=== PATIENT | female | born 1935 | race Caucasian/White ===

== ENCOUNTER 2017-10-01 18:18 | Emergency (ER) | payer OTHER, SELFPAY ==
[2017-10-01] VITALS (7 sets, daily range): BP systolic 152–205; BP diastolic 78–105; PULSE 99–119; RESP 21–25; TEMP 36.8; O2SAT 97–100
--- NOTE | 2017-10-01 18:47 | PC.NURSE ---
pt reports, hx of stroke last february 2017 expressive aphasia, intermittent for couple of days, along with dizziness , and feeling nervous. denies headache, denies chest pain, with shortness of breath, denies vomiting or diarrhea. neuro fast exam negative.
--- NOTE | 2017-10-01 18:52 | DI.RAD.S_ITS ---
PROCEDURE: XR CHEST 1V INDICATIONS: dizziness with shortness of breath TECHNIQUE: One view of the chest was acquired. COMPARISON: [facility], , CHEST 2 VIEW, 03/10/2014, 12:59. [facility], , CHEST 1 VIEW, 08/24/2015, 13:37. FINDINGS: Surgical changes and devices: None. Lungs and pleura: Diffuse interstitial prominence appears unchanged from the last exam. No pleural effusions or pneumothorax. Mediastinum: Mediastinal contours appear normal. Heart size is normal. Bones and chest wall: No suspicious bony lesions. Overlying soft tissues appear unremarkable. IMPRESSION: Chronic diffuse interstitial prominence suggesting chronic interstitial lung disease. Dictated by: Mart Murphy M.D. on 10/01/2017 at 20:11 Approved by: Mart Murphy M.D. on 10/01/2017 at 20:13
[2017-10-01 19:12] LABS: Add Manual Diff / Slide Review NO; Basophils Percent Auto 0.7 % (0-2); Hematocrit 41.9 % (36-46); Hemoglobin 14.2 g/dL (12.0-16.0); Lymphocytes Percent Auto 34.7 % (25-40); Mean Corpuscular HGB Conc 33.8 % (30-36); Mean Corpuscular Volume 91.7 fL (80-100); Monocytes Percent Auto 11.7 % (3-14); Neutrophils Absolute Auto 3000 /uL (3000-5900); Neutrophils Percent Auto 51.9 % (50-75); Platelet Count 349 X10^3/uL (150-400); Red Blood Cell Count 4.57 X10^6/uL (4.0-5.2); White Blood Cell Count 5.8 X10^3/uL (4.5-11.0)
[2017-10-01 19:24] LABS: Alanine Aminotransferase 26 IU/L (9-52); Albumin 4.5 g/dL (3.5-5.0); Albumin Globulin Ratio 1.4 (1.0-2.8); Alkaline Phosphatase 92 U/L (38-126); Aspartate Aminotransferase 34 IU/L (14-36); BUN Creatinine Ratio 16.7 (6-22); Bilirubin Total 1.2 mg/dL (0.2-1.3); Blood Urea Nitrogen 10 mg/dL (7-17); Calcium 9.4 mg/dL (8.4-10.2); Carbon Dioxide 24 mmol/L (22-32); Chloride 93 mmol/L (98-107); Creatine Kinase 65 U/L (30-135); Estimated Glomerular Filt Rate > 60.0 mL/min (>60); Globulin 3.2 g/dL (1.7-4.1); Glucose 95 mg/dL (80-110); Lipase 104 U/L (23-300); Sodium 130 mmol/L (137-145); Total Protein 7.7 g/dL (6.3-8.2)
[2017-10-01 19:33] LABS: D Dimer < 200 ng/mL (<230)
[2017-10-01 19:39] LABS: HEMOLYSIS 89 (0-50); Troponin I < 0.012 ng/mL (0.01-0.034)
[2017-10-01 19:43] LABS: Potassium 4.3 mmol/L (3.4-5.1)
[2017-10-01 20:29] LABS: Thyroid Stimulating Hormone 4.46 uIU/mL (0.47-4.68)
[2017-10-01] MEDS: SODIUM CHLORIDE 0.9% 1,000 ML 1000 ML IV (21:38)
[2017-10-01 22:08] LABS: Appearance Urine UA CLEAR; Bilirubin Urine UA NEGATIVE (NEGATIVE); Color Urine UA YELLOW; Glucose Urine UA NEGATIVE (Normal); Ketones Urine UA NEGATIVE (NEGATIVE); Leukocyte Esterase Urine UA TRACE (NEGATIVE); Nitrite Urine UA Negative (Negative); Occult Blood Urine UA 1+ (Negative); Protein Urine UA NEGATIVE (Negative); Urobilinogen Urine UA 0.2 E.U./dL (0.2); pH Urine UA 7.5 (4.5-8.0)
[2017-10-01 22:19] LABS: Bacteria Urine Occasional (0-1); Culture Indicated Urine Specimen Cultured; RBC Urine 0-1/HPF (0-5/HPF); Squamous Epithelial Cell Urine 0-1 /HPF; WBC Urine 0-1/HPF (0-5/HPF)
--- NOTE | 2017-10-01 23:55 | ED.PEDSOB ---
HPI - Pediatric SOB/Dyspnea General Chief Complaint: Shortness of Breath/Dyspnea Stated Complaint: THINKS SHE IS HAVING A HEART ATTACK History of Present Illness HPI Narrative: HPI 82-year-old female with a history of CVA, HTN and HLD presents for evaluation of feeling unwell and mildly jittery of several days' duration, patient unable to further characterize her symptoms. Patient denies overt chest pain, shortness breath, fevers, chills, headache, changes in vision or hearing. On repeat evaluation several hours into the patient's emergency department course she notes that she is been somewhat stressful the last several days with very poor and minimal sleep has been drinking 2 to 3 times the normal amount of coffee (now 5 cups a day). History obtained from: patient. M/S/F/SocHx notable for: breast cancer history, depression, anxiety, back pain, CVA, HTN, HLD, constipation, insomnia; remainder reviewed with patient and in chart. ROS: Negative constitutional, eye, cardiovascular, pulmonary, GI, , MSK, skin, neurologic, psychiatric, endocrine unless noted in the HPI. Exam HR 100, BP 196/96, RR 21, T pending?F, SaO2 100 % on room air; at 6:54 PM. Gen: Pleasant, non-toxic appearing, resting comfortably. HEENT: Normocephalic, atraumatic Resp: Clear to auscultation bilaterally, normal work of breathing with no accessory muscle usage. Card: Regular rate and rhythm with no murmurs rubs or gallops. No JVD. No pedal edema bilaterally. GI: Nontender to palpation throughout all quadrants. Nondistended. : No CVA tenderness to percussion bilaterally. No suprapubic tenderness or palpable masses. MSK: No visible deformities, strength and tone within normal limits. Skin: Normal color with no visible lesions. Neuro: Gen AO x 3, no facial asymmetry, no gaze preference, no slurring of speech. Pupils equal and reactive, EOMI, no facial asymmetry, no nystagmus, phonation intact, SCM 5/5 bilaterally. Cerebellar: bilateral upper extremities without dysmetria. 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 Psych: Mood and affect appropriate. Labs / Imaging (pertinent): WBC 5.8, Hb 14.2, Na 130, K 4.3, lipase 104, TSH 4.46 troponin <0.012 d-dimer <200 CXR: No acute cardiopulmonary disease process. EKG: SR at 109 BPM, OK 140 msec, no new ST segment changes, new LBBB, or T-wave changes that would suggest acute ischemia. MDM Previous chart, nursing note, and vitals reviewed. A: 82-year-old female with a history of CVA, HTN and HLD presents for evaluation of feeling unwell and mildly jittery of several days' duration, patient unable to further characterize her symptoms. DDx: CVA, ACS/UA, UTI, pneumonia, electrolyte abnormalities,anemia, hypothyroidism, hypothermia, pericardial effusion, dissection, PE. Evaluation: patient with a unclear symptom constellation is likely due to insomnia, excessive caffeine use, and dehydration. The patient's physical exam is without evidence of neuro deficits suggestive of CVA, given a non-ischemic EKG and negative troponin's strongly doubt ACS, history and consistent with unstable angina, notifying suggestive on history of UTI, imaging without of pneumonia, CBC, BMP, WNL. Given the low pretest probability the negative d-dimer is appropriate for risk stratification/rule out with respect to PE and dissection. Physical exam and imaging are without evidence of pericardial effusion, pleural effusion. TSH WNL. Patient had hypertension on arrival which resolved the patient's baseline range (per patient and SPP of 160-170) with rest, patient with mild tachycardia which improved with hydration. As the patient has been taking excessive caffeine she was recommended to reduce her caffeine intake and follow up tomorrow with her PCP for repeat evaluation.\ Impression: malaise (please reference below for remainder of encounter information) Related Data Home Medications Medication Instructions Recorded Confirmed lovastatin 20 mg PO HS #0 04/09/16 08/21/17 Previous Rx's Medication Instructions Recorded losartan [Cozaar] 100 mg PO QDAY #180 tab 10/22/16 clopidogrel [Plavix] 75 mg PO QDAY #90 tab 11/19/16 fluoxetine 20 mg PO QDAY #90 cap 08/05/17 hydroxyzine pamoate 50 mg capsule 50 mg PO HSP PRN #30 cap 08/21/17 Allergies Allergy/AdvReac Type Severity Reaction Status Date / Time No Known Allergies Allergy Uncoded 08/21/17 13:46 PFSH Medical History History of breast cancer (Chronic) Hyperlipidemia, unspecified (Chronic) Essential hypertension (Chronic) Depression, major (Chronic) Anxiety (Chronic) Back pain (Chronic) CVA (cerebral vascular accident) (Chronic) History of colon polyps (Chronic) Cerebrovascular accident (CVA) due to stenosis of right middle cerebral artery (04/09/16) Surgical History History of bilateral salpingo-oophorectomy (BSO) Status post surgery (01/09/09) Social History Smoking Status: Never smoker Course Orders Ordered: ED Orders 10/01/17 18:30 Complete Blood Count AUTO DIFF Stat Comprehensive Metabolic Panel Stat Lipase Stat Troponin & CK Cardiac Panel Stat 10/01/17 18:52 XR chest 1V Stat 10/01/17 21:55 Urinalysis and Microscopic Stat Urine Culture Stat Discontinued Medications Sodium Chloride (Normal Saline 0.9%) 1,000 mls @ 1,000 mls/hr IV BOLUS ONE Stop: 10/01/17 22:25 Last Infusion: 10/01/17 23:07 Dose: 1,000 mls/hr Admin: 10/01/17 21:38 Dose: 1,000 mls/hr Vital Signs - 8 hr 10/01/17 18:29 10/01/17 18:54 10/01/17 19:37 Temperature 98.3 F Pulse Rate 119 H 100 H Respiratory Rate 22 21 Blood Pressure 205/105 H Blood Pressure [Left Arm] 196/96 H Pulse Oximetry 100 100 10/01/17 19:40 10/01/17 20:37 10/01/17 22:05 Temperature Pulse Rate 102 H 114 H 99 H Respiratory Rate 25 H 21 22 Blood Pressure Blood Pressure [Left Arm] 158/84 H 152/78 H 182/94 H Pulse Oximetry 98 97 97 10/01/17 23:22 Temperature Pulse Rate 100 H Respiratory Rate 21 Blood Pressure Blood Pressure [Left Arm] 158/88 H Pulse Oximetry 99 Medical Decision Making Lab Data Result diagrams: 10/01/17 18:30 10/01/17 18:30 Lab Results 10/01/17 10/01/17 10/01/17 Range/Units 14:20 14:20 14:20 WBC (4.5-11.0) X10^3/uL RBC (4.0-5.2) X10^6/uL Hgb (12.0-16.0) g/dL Hct (36-46) % MCV (80-100) fL MCH (26-34) PG MCHC (30-36) % RDW (11.6-14.8) % Plt Count (150-400) X10^3/uL Neut % (Auto) (50-75) % Lymph % (Auto) (25-40) % [place] % (Auto) (3-14) % Eos % (Auto) (2-4) % Baso % (Auto) (0-2) % Neut # (Auto) (9525-2842) /uL D-Dimer < 200 (<230) ng/mL Sodium Cancelled Potassium Cancelled Chloride Cancelled Carbon Dioxide Cancelled BUN Cancelled Creatinine Cancelled Estimated GFR Cancelled BUN/Creatinine Ratio Cancelled Glucose Cancelled Calcium Cancelled Total Bilirubin Cancelled AST Cancelled ALT Cancelled Alkaline Phosphatase Cancelled Total Creatine Kinase (30-135) U/L Troponin I Cancelled Total Protein Cancelled Albumin Cancelled Globulin Cancelled Albumin/Globulin Ratio Cancelled Lipase (23-300) U/L TSH (0.47-4.68) uIU/mL Urine Color Urine Appearance Urine pH (4.5-8.0) Ur Specific [place] (1.000-1.035) Urine Protein (Negative) Urine Glucose (UA) (Normal) g/dL Urine Ketones (NEGATIVE) Urine Occult Blood (Negative) Urine Nitrate (Negative) Urine Bilirubin (NEGATIVE) Urine Urobilinogen (0.2) E.U./dL Ur Leukocyte Esterase (NEGATIVE) Urine RBC (0-5/HPF) Urine WBC (0-5/HPF) Ur Squamous Epith Cells Urine Bacteria (None) Ur Culture Indicated? Micro UA Comment 10/01/17 10/01/17 10/01/17 Range/Units 14:20 18:30 18:30 WBC 5.8 (4.5-11.0) X10^3/uL RBC 4.57 (4.0-5.2) X10^6/uL Hgb 14.2 (12.0-16.0) g/dL Hct 41.9 (36-46) % MCV 91.7 (80-100) fL MCH 31.0 (26-34) PG MCHC 33.8 (30-36) % RDW 13.0 (11.6-14.8) % Plt Count 349 (150-400) X10^3/uL Neut % (Auto) 51.9 (50-75) % Lymph % (Auto) 34.7 (25-40) % [place] % (Auto) 11.7 (3-14) % Eos % (Auto) 1.0 L (2-4) % Baso % (Auto) 0.7 (0-2) % Neut # (Auto) 3000 (9142-8895) /uL D-Dimer (<230) ng/mL Sodium 130 L Potassium 4.3 Chloride 93 L Carbon Dioxide 24 BUN 10 Creatinine 0.60 Estimated GFR > 60.0 BUN/Creatinine Ratio 16.7 Glucose 95 Calcium 9.4 Total Bilirubin 1.2 AST 34 ALT 26 Alkaline Phosphatase 92 Total Creatine Kinase 65 (30-135) U/L Troponin I < 0.012 Total Protein 7.7 Albumin 4.5 Globulin 3.2 Albumin/Globulin Ratio 1.4 Lipase 104 (23-300) U/L TSH 4.46 (0.47-4.68) uIU/mL Urine Color Urine Appearance Urine pH (4.5-8.0) Ur Specific [place] (1.000-1.035) Urine Protein (Negative) Urine Glucose (UA) (Normal) g/dL Urine Ketones (NEGATIVE) Urine Occult Blood (Negative) Urine Nitrate (Negative) Urine Bilirubin (NEGATIVE) Urine Urobilinogen (0.2) E.U./dL Ur Leukocyte Esterase (NEGATIVE) Urine RBC (0-5/HPF) Urine WBC (0-5/HPF) Ur Squamous Epith Cells Urine Bacteria (None) Ur Culture Indicated? Micro UA Comment 07/04/18 Range/Units 21:55 WBC (4.5-11.0) X10^3/uL RBC (4.0-5.2) X10^6/uL Hgb (12.0-16.0) g/dL Hct (36-46) % MCV (80-100) fL MCH (26-34) PG MCHC (30-36) % RDW (11.6-14.8) % Plt Count (150-400) X10^3/uL Neut % (Auto) (50-75) % Lymph % (Auto) (25-40) % [place] % (Auto) (3-14) % Eos % (Auto) (2-4) % Baso % (Auto) (0-2) % Neut # (Auto) (6628-3568) /uL D-Dimer (<230) ng/mL Sodium Potassium Chloride Carbon Dioxide BUN Creatinine Estimated GFR BUN/Creatinine Ratio Glucose Calcium Total Bilirubin AST ALT Alkaline Phosphatase Total Creatine Kinase (30-135) U/L Troponin I Total Protein Albumin Globulin Albumin/Globulin Ratio Lipase (23-300) U/L TSH (0.47-4.68) uIU/mL Urine Color Yellow Urine Appearance Clear Urine pH 7.5 (4.5-8.0) Ur Specific [place] 1.010 (1.000-1.035) Urine Protein Negative (Negative) Urine Glucose (UA) Negative (Normal) g/dL Urine Ketones Negative (NEGATIVE) Urine Occult Blood 1+ H (Negative) Urine Nitrate Negative (Negative) Urine Bilirubin Negative (NEGATIVE) Urine Urobilinogen 0.2 (0.2) E.U./dL Ur Leukocyte Esterase Trace H (NEGATIVE) Urine RBC 0-1/hpf (0-5/HPF) Urine WBC 0-1/hpf (0-5/HPF) Ur Squamous Epith Cells 0-1 /hpf Urine Bacteria Occasional (0-1) (None) Ur Culture Indicated? Specimen cultured Micro UA Comment Not Reportable Discharge Plan Departure Prescriptions: No Action lovastatin 20 MG tablet 20 mg PO HS Qty: 0 RF: 0 losartan [Cozaar] 50 MG tablet 100 mg PO QDAY Qty: 180 RF: 3 clopidogrel [Plavix] 75 MG tablet 75 mg PO QDAY Qty: 90 RF: 3 fluoxetine 20 mg capsule 20 mg PO QDAY Qty: 90 RF: 1 hydroxyzine pamoate [Vistaril] 50 mg capsule 50 mg PO HSP PRN (Reason: sleep) Qty: 30 RF: 0
--- NOTE | 2017-10-02 00:06 | PC.NURSE ---
[employer] called for patient ride. eta 30 minutes
== END 2017-10-02 00:22 | disposition home or self-care (01) ==
PROVIDERS: Emergency Provider Emergency Medicine; PCP Family Medicine
DX: R53.81 Other malaise (principal)
CPT/HCPCS: 36591; 71045; 80053; 81001; 81003; 82550; 82553; 83690; 84443; 84484; 85025; 85379; 87086; 93005; 93041; 96360; 99285; 99291

== ENCOUNTER → 2017-11-26 09:42 | Outpatient (CLI) | payer OTHER, SELFPAY ==
[2017-11-26 10:03] LABS: Add Manual Diff / Slide Review NO; Basophils Percent Auto 0.8 % (0-2); Eosinophils Percent Auto 2.5 % (2-4); Hematocrit 44.6 % (36-46); Hemoglobin 14.7 g/dL (12.0-16.0); Lymphocytes Percent Auto 22.6 % (25-40); Mean Corpuscular HGB Conc 33.1 % (30-36); Mean Corpuscular Hemoglobin 30.9 PG (26-34); Mean Corpuscular Volume 93.5 fL (80-100); Monocytes Percent Auto 9.7 % (3-14); Neutrophils Absolute Auto 2600 /uL (3000-5900); Neutrophils Percent Auto 64.4 % (50-75); Platelet Count 336 X10^3/uL (150-400); Red Blood Cell Count 4.77 X10^6/uL (4.0-5.2); Red Cell Distribution Width 13.3 % (11.6-14.8)
[2017-11-26 10:13] LABS: Alanine Aminotransferase 24 IU/L (9-52); Albumin 4.5 g/dL (3.5-5.0); Albumin Globulin Ratio 1.6 (1.0-2.8); Alkaline Phosphatase 79 U/L (38-126); Aspartate Aminotransferase 29 IU/L (14-36); BUN Creatinine Ratio 13.8 (6-22); Bilirubin Total 1.4 mg/dL (0.2-1.3); Blood Urea Nitrogen 11 mg/dL (7-17); Carbon Dioxide 32 mmol/L (22-32); Chloride 100 mmol/L (98-107); Cholesterol 228 mg/dL (140-199); Estimated Glomerular Filt Rate > 60.0 mL/min (>60); Globulin 2.9 g/dL (1.7-4.1); Glucose 99 mg/dL (80-110); HDL Cholesterol 89 mg/dL (40-60); HEMOLYSIS < 15 (0-50); LDL Cholesterol Calculated 111 mg/dL (<100); Potassium 4.5 mmol/L (3.4-5.1); Sodium 140 mmol/L (137-145); Total Protein 7.4 g/dL (6.3-8.2); Triglycerides 139 mg/dL (35-150)
[2017-11-26 10:44] LABS: TSH w/ Reflex to FT4 1.41 uIU/mL (0.47-4.68)
[2017-11-26 11:43] LABS: Thyroid Stimulating Hormone 1.46 uIU/mL (0.47-4.68)
== END ==
PROVIDERS: PCP Family Medicine; Visit Provider Family Medicine
DX: E78.5 Hyperlipidemia, unspecified (principal); I10 Essential (primary) hypertension; E78.1 Pure hyperglyceridemia
CPT/HCPCS: 36415; 80053; 80061; 84443; 85025

== ENCOUNTER → 2018-03-17 10:05 | Outpatient (CLI) | payer OTHER, SELFPAY ==
--- NOTE | 2018-03-17 10:08 | DI.US.S_ITS ---
PROCEDURE: US ABDOMEN COMPLETE INDICATIONS: BLOATING TECHNIQUE: Real-time scanning was performed of the abdominal and retroperitoneal organs, with image documentation. COMPARISON: [facility], US, ABDOMEN COMPLETE, 08/05/2013, 9:10. FINDINGS: Liver: Liver is normal in size and homogeneous in echotexture. Gallbladder: No gallstones identified. Normal gallbladder wall. No pericholecystic fluid. Negative sonographic Parrish sign. Biliary ducts: Intrahepatic bile ducts are non-dilated. Extrahepatic bile duct caliber measures 7.3 mm. Normal is 6-7 mm or less in diameter, or 10 mm or less post-cholecystectomy. Pancreas: Visualized portions of the pancreas are sonographically normal. Spleen: Spleen is normal in size and homogeneous in echotexture. Kidneys: Kidneys are normal in size and echotexture. Right kidney measures 9.7 cm long; left kidney measures 10.7 cm long. No hydronephrosis or nephrolithiasis. No solid masses. Aorta: Visualized aorta is normal in caliber at less than 3 cm. Iliacs: Proximal common iliac arteries are normal in caliber at less than 2.5 cm. IVC: Intrahepatic inferior vena cava is patent. Miscellaneous: No free abdominal fluid. IMPRESSION: No source for abdominal bloating identified. Dictated by: Bautista Montoya [facility] Interpreted: Guillaume Sun MD on 03/17/2018 at 11:50 Approved by: Guillaume Sun M.D. on 03/17/2018 at 12:59
--- NOTE | 2018-03-17 10:08 | DI.US.S_ITS ---
PROCEDURE: US PELVIC COMPLETE INDICATIONS: BLOATING TECHNIQUE: Real-time scanning was performed of the pelvic organs, with image documentation. Additional endovaginal scanning was necessary due to incomplete visualization of the adnexal and endometrial structures by transabdominal scanning. COMPARISON: [facility], , PELVIC COMPLETE, 08/05/2013, 9:22. FINDINGS: Transabdominal scanning: Limited scanning through the kidneys shows no hydronephrosis. No pathologic free abdominal or pelvic fluid. Endovaginal scanning: Uterus: Uterus is normal in size at 4.7 x 2.7 x 4.2 cm. The endometrium measures 1.0 mm in combined thickness. 2 intramural fibroids present largest measuring roughly 13 mm. Several myometrial cysts present largest measuring 6 mm. Ovaries: Right ovary is not visualized and the left ovary is surgically absent. No adnexal masses seen. IMPRESSION: 1. 2 small intramural fibroids. 2. Several small myometrial cysts. Dictated by: Bautista RAPP Interpreted: Guillaume Sun MD on 03/17/2018 at 11:52 Approved by: Guillaume Sun M.D. on 03/17/2018 at 12:59
== END ==
PROVIDERS: PCP Family Medicine; Visit Provider Family Medicine
DX: R14.0 Abdominal distension (gaseous) (principal); D25.1 Intramural leiomyoma of uterus; N85.8 Other specified noninflammatory disorders of uterus
CPT/HCPCS: 76700; 76830; 76856

== ENCOUNTER → 2018-12-01 09:30 | Outpatient (CLI) | payer OTHER, SELFPAY ==
[2018-12-01 10:36] LABS: Hematocrit 43.1 % (36-46); Hemoglobin 14.4 g/dL (12.0-16.0); Mean Corpuscular HGB Conc 33.4 % (30-36); Mean Corpuscular Hemoglobin 30.3 PG (26-34); Mean Corpuscular Volume 90.8 fL (80-100); Platelet Count 400 X10^3/uL (150-400); Red Blood Cell Count 4.75 X10^6/uL (4.0-5.2); Red Cell Distribution Width 13.4 % (11.6-14.8); White Blood Cell Count 5.1 X10^3/uL (4.5-11.0)
[2018-12-01 10:46] LABS: Alanine Aminotransferase 12 IU/L (9-52); Albumin 4.4 g/dL (3.5-5.0); Albumin Globulin Ratio 1.5 (1.0-2.8); Alkaline Phosphatase 95 U/L (38-126); Aspartate Aminotransferase 23 IU/L (14-36); BUN Creatinine Ratio 17.1 (6-22); Bilirubin Total 1.1 mg/dL (0.2-1.3); Blood Urea Nitrogen 12 mg/dL (7-17); Carbon Dioxide 28 mmol/L (22-32); Chloride 98 mmol/L (98-107); Cholesterol 226 mg/dL (140-199); Estimated Glomerular Filt Rate > 60.0 mL/min (>60); Globulin 2.9 g/dL (1.7-4.1); Glucose 101 mg/dL (80-110); HDL Cholesterol 97 mg/dL (40-60); HEMOLYSIS 16 (0-50); LDL Cholesterol Calculated 102 mg/dL (<100); Potassium 4.8 mmol/L (3.4-5.1); Sodium 138 mmol/L (137-145); Total Protein 7.3 g/dL (6.3-8.2); Triglycerides 134 mg/dL (35-150)
[2018-12-01 11:25] LABS: TSH w/ Reflex to FT4 1.66 uIU/mL (0.47-4.68)
[2018-12-01 13:37] LABS: Neutrophils Absolute Manual 3417 /uL (3000-5900); Total Cells Counted 100
[2018-12-01 13:39] LABS: Anisocytosis 1+
== END ==
PROVIDERS: PCP Family Medicine; Visit Provider Family Medicine
DX: F32.9 Major depressive disorder, single episode, unspecified (principal); E78.5 Hyperlipidemia, unspecified; I63.9 Cerebral infarction, unspecified
CPT/HCPCS: 36415; 80053; 80061; 84443; 85025

== ENCOUNTER 2019-09-21 15:46 | Emergency (ER) | payer OTHER, SELFPAY ==
[2019-09-21] VITALS (9 sets, daily range): BP systolic 142–186; BP diastolic 80–104; PULSE 90–110; RESP 17–22; TEMP 37; O2SAT 97–99
--- NOTE | 2019-09-21 16:19 | DI.RAD.S_ITS ---
PROCEDURE: XR CHEST 1V INDICATIONS: flu-like symptoms TECHNIQUE: One view of the chest was acquired. COMPARISON: [facility], CR, XR CHEST 1V, 10/01/2017, 18:56. FINDINGS: Surgical changes and devices: None. Lungs and pleura: Scattered subsegmental atelectasis and/or scarring. No focal consolidation. No pleural effusions or pneumothorax. Mediastinum: Mediastinal contours appear normal. Heart size is normal. Bones and chest wall: No suspicious bony lesions. Overlying soft tissues appear unremarkable. IMPRESSION: No acute disease Dictated by: Zack Grace M.D. on 09/21/2019 at 17:19 Approved by: Zack Grace M.D. on 09/21/2019 at 17:20
[2019-09-21 16:29] LABS: Add Manual Diff / Slide Review NO; Basophils Absolute Auto 100 /uL (0-100); Basophils Percent Auto 1.1 % (0-2); Eosinophils Absolute Auto 100 /uL (0-450); Eosinophils Percent Auto 1.9 % (2-4); Hematocrit 41.7 % (36-46); Hemoglobin 14.1 g/dL (12.0-16.0); Lymphocytes Absolute Auto 1700 /uL (1100-4500); Lymphocytes Percent Auto 27.6 % (25-40); Mean Corpuscular HGB Conc 33.8 % (30-36); Mean Corpuscular Hemoglobin 31.1 PG (26-34); Mean Corpuscular Volume 91.9 fL (80-100); Monocytes Absolute Auto 700 /uL (0-900); Monocytes Percent Auto 10.8 % (3-14); Neutrophils Absolute Auto 3700 /uL (1500-7000); Neutrophils Percent Auto 58.6 % (50-75); Platelet Count 377 X10^3/uL (150-400); Red Blood Cell Count 4.54 X10^6/uL (4.0-5.2); Red Cell Distribution Width 13.7 % (11.6-14.8); White Blood Cell Count 6.2 X10^3/uL (4.5-11.0)
[2019-09-21 16:30] LABS: Lactate (Lactic Acid) 1.8 mmol/L (0.7-2.1)
[2019-09-21 17:12] LABS: D Dimer < 200 ng/mL (<230)
[2019-09-21 17:15] LABS: Creatine Kinase 48 U/L (30-135)
[2019-09-21 17:17] LABS: C-Reactive Protein Quant < 0.5 mg/dL (<1.0)
[2019-09-21 17:22] LABS: Alanine Aminotransferase 14 IU/L (<35); Albumin 4.4 g/dL (3.5-5.0); Albumin Globulin Ratio 1.5 (1.0-2.8); Alkaline Phosphatase 95 U/L (38-126); Aspartate Aminotransferase 28 IU/L (14-36); BUN Creatinine Ratio 16.5 (6-22); Bilirubin Total 0.5 mg/dL (0.2-1.3); Blood Urea Nitrogen 13 mg/dL (7-17); Calcium 9.9 mg/dL (8.4-10.2); Carbon Dioxide 22 mmol/L (22-32); Chloride 104 mmol/L (98-107); Estimated Glomerular Filt Rate > 60.0 mL/min (>60); Globulin 2.9 g/dL (1.7-4.1); Glucose 95 mg/dL (80-110); HEMOLYSIS < 15 (0-50); Sodium 136 mmol/L (137-145); Total Protein 7.3 g/dL (6.3-8.2)
[2019-09-21 17:25] LABS: NT-proBNP (BNP-Adult 18+) 196 pg/mL (<450); Troponin I < 0.012 ng/mL (0.01-0.034)
[2019-09-21 17:37] LABS: COVID19 -Nasal RAPID Negative (Negative)
[2019-09-21 17:37] LABS: Procalcitonin < 0.05 ng/mL (<0.5)
[2019-09-21 17:48] LABS: Ferritin 13 ng/mL (11-264)
[2019-09-21] MEDS: SODIUM CHLORIDE 0.9% 1,000 ML 1000 ML IV (17:50)
[2019-09-21 19:24] LABS: Creatine Kinase 44 U/L (30-135)
[2019-09-21 19:31] LABS: Appearance Urine UA CLOUDY; Bilirubin Urine UA NEGATIVE (NEGATIVE); Color Urine UA YELLOW; Glucose Urine UA NEGATIVE (Negative); Ketones Urine UA TRACE (NEGATIVE); Leukocyte Esterase Urine UA 1+ (NEGATIVE); Nitrite Urine UA NEGATIVE (Negative); Occult Blood Urine UA TRACE-INTACT (Negative); Protein Urine UA NEGATIVE (Negative); Urobilinogen Urine UA 0.2 E.U./dL (0.2); pH Urine UA 6.5 (4.5-8.0)
[2019-09-21 19:37] LABS: Troponin I < 0.012 ng/mL (0.01-0.034)
[2019-09-21 19:41] LABS: Amorphous Sediment Urine 2+; Bacteria Urine Moderate (10-30); Culture Indicated Urine Specimen Cultured; RBC Urine 1-5/HPF (0-5/HPF); Squamous Epithelial Cell Urine 1-5 /HPF (0-5/HPF); WBC Urine 5-10/HPF (0-5/HPF)
--- NOTE | 2019-09-21 21:13 | ED_ITS ---
HPI - SOB/Dyspnea <ABEBA CabanBC - Last Filed: 09/21/19 21:17> General Chief Complaint: Shortness of Breath/Dyspnea Stated Complaint: SOB SPOT LEFT SIDE OF LEG Time Seen by Provider: 09/21/19 16:18 Source: patient and family Mode of arrival: Ambulatory Limitations: no limitations History of Present Illness HPI Narrative: The patient is an 84-year-old female nonsmoker with history of hypertension and TIA who presents with her daughter for chief complaint of shortness of breath since last Friday. She denies any fevers, denies any cough or congestion. She has been mostly isolating at home, though has made some trips out to stores. She denies any chest pain. Denies any abdominal pain nausea vomiting or diarrhea. She denies any history such as COPD or asthma. She denies any immobility, hormone therapy or recent hospitalizations. No specific alleviating or worsening factors, does not get worse with exercise, daughter is concerned that she might not be drinking enough water. She is also concerned about ?a bug bite on the lateral aspect of her left lower leg Related Data Home Medications Medication Instructions Recorded Confirmed clopidogrel 75 mg PO DAILY 09/21/19 09/21/19 fluoxetine 20 mg PO DAILY 09/21/19 09/21/19 hydroxyzine pamoate 50 mg PO BEDTIME MDD insomnia 09/21/19 09/21/19 lovastatin 20 mg PO BEDTIME 09/21/19 09/21/19 polyethylene glycol 3350 [Miralax] 17 gram PO DAILY PRN 09/21/19 09/21/19 Previous Rx's Medication Instructions Recorded losartan 50 mg tablet 100 mg PO QDAY #180 tab 12/02/18 Allergies Allergy/AdvReac Type Severity Reaction Status Date / Time No Known Drug Allergies Allergy Verified 09/21/19 16:34 Review of Systems <ABEBA CabanBC - Last Filed: 09/21/19 21:17> Review of Systems Narrative: GENERAL: Denies chills, fatigue, malaise, fever, sweats. HEENT: Denies sinus pain, ear pain, sore throat, difficulty swallowing, dizziness. RESPIRATORY: See HPI CARDIOVASCULAR: Denies chest pain, palpitations, orthopnea, edema, GASTROINTESTINAL: Denies nausea, vomiting, abdominal pain, diarrhea, constipation, melena. : Denies dysuria, frequency, incontinence, hematuria, urinary retention. MUSCULOSKELETAL: denies weakness, joint pain, or bony pain SKIN: See HPI NEUROLOGIC: Denies weakness, headache, numbness, change in speech, confusion, seizures, incoordination. PSYCHIATRIC: No concerning psychosocial issues. 12 point review of systems is negative except for those stated above Patient History <ABRAHAM Caban - Last Filed: 09/21/19 21:17> Medical History Ankle pain (Chronic 2014) Anxiety (Chronic 2004) Back pain (Chronic) Cerebrovascular accident (CVA) due to stenosis of right middle cerebral artery (Resolved 04/09/16) CVA (cerebral vascular accident) (Resolved) Depression, major (Chronic) Essential hypertension (Chronic) GERD (gastroesophageal reflux disease) (Chronic) Hearing loss (Resolved 2012) History of breast cancer (Resolved 1989) History of colon polyps (Chronic) Hyperlipidemia, unspecified (Chronic) Mumps (Resolved 1974) Ovarian cyst (Resolved 1964) Rheumatoid arthritis (Chronic 2001) RLS (restless legs syndrome) (Chronic 2009) Sleep apnea (Chronic 1999) Surgical History Anesthesia (Resolved) History of bilateral salpingo-oophorectomy (BSO) History of left oophorectomy (Resolved) History of right mastectomy (Resolved 1989) Status post surgery (Resolved 01/09/09) Family History Sister CVA (cerebral vascular accident) Father No problems noted. Mother Ruptured appendix Social History marital status: Smoking Status: Never smoker alcohol intake: current (ON OCCASION ) substance use type: does not use Smoking Status: Never smoker Exam <ABRAHAM Caban - Last Filed: 09/21/19 21:17> Narrative Exam Narrative: GENERAL: Elderly female no acute distress. HEAD: Atraumatic. Normocephalic. No temporal or scalp tenderness. EYES: Pupils equal round and reactive. Extraocular motions intact. No scleral icterus. No injection or drainage. ENT: Nose without bleeding, purulent drainage or septal hematoma. Throat without erythema, tonsillar hypertrophy or exudate. Uvula midline. Airway patent. NECK: Trachea midline. No JVD or lymphadenopathy. Supple, nontender, no meningeal signs. CARDIOVASCULAR: Regular rate and rhythm RESPIRATORY: Clear to auscultation. Breath sounds equal bilaterally. No wheezes, rales, or rhonchi. No cough. No increased respiratory effort. No accessory muscle use. GASTROINTESTINAL: Abdomen soft, non-tender, nondistended. No hepato- splenomegaly, or palpable masses. No guarding. EXTREMITIES: No clubbing, cyanosis, or edema. No joint tenderness, effusion, or edema noted. BACK: Nontender without deformity or crepitance. No flank tenderness. NEURO: AOx3. SKIN: 0.25 cm scab on lateral aspect of left lower leg, no surrounding erythema or palpable abscess or fluctuance Initial Vital Signs Initial Vital Signs: Vital Signs Temperature 98.6 F 09/21/19 15:49 Pulse Rate 103 H 09/21/19 15:49 Respiratory Rate 22 09/21/19 15:49 Blood Pressure 186/99 H 09/21/19 15:49 Pulse Oximetry 99 09/21/19 15:49 <Violette Johns DO - Last Filed: 09/23/19 08:26> Initial Vital Signs Initial Vital Signs: Vital Signs Temperature 98.6 F 09/21/19 15:49 Pulse Rate 103 H 09/21/19 15:49 Respiratory Rate 22 09/21/19 15:49 Blood Pressure 186/99 H 09/21/19 15:49 Pulse Oximetry 99 09/21/19 15:49 Scores <ABRAHAM Caban - Last Filed: 09/21/19 21:17> PERC Score Age greater than or equal to 50 years: Yes Heart rate greater than or equal to 100 bpm: No Room Air O2 Sat less than 95%: No Unilateral leg swelling: No Recent trauma or surgery: No Hemoptysis: No Prior PE or DVT: No Hormone Use: No Total PERC Score: 1 Course <ABRAHAM Caban - Last Filed: 09/21/19 21:17> Orders Ordered: Discontinued Medications Sodium Chloride (Normal Saline 0.9%) 1,000 mls @ 1,000 mls/hr IV BOLUS ONE Stop: 09/21/19 18:29 Last Infusion: 09/21/19 19:19 Dose: 0 mls/hr Documented by: Admin: 09/21/19 17:50 Dose: 1,000 mls/hr Documented by: YAMILE Vital Signs Vital signs: Vital Signs - 8 hr 09/21/19 15:49 09/21/19 16:37 09/21/19 17:00 Temperature 98.6 F Pulse Rate 103 H 105 H 109 H Respiratory Rate 22 20 18 Blood Pressure 186/99 H Blood Pressure [Left Arm] 186/104 H 142/85 H Pulse Oximetry 99 99 98 09/21/19 18:00 09/21/19 18:15 09/21/19 18:21 Temperature Pulse Rate 110 H 102 H 101 H Respiratory Rate 20 22 20 Blood Pressure Blood Pressure [Left Arm] 156/86 H 168/102 H 168/102 H Pulse Oximetry 98 98 97 09/21/19 19:05 09/21/19 19:21 09/21/19 19:54 Temperature Pulse Rate 93 H 90 90 Respiratory Rate 17 20 18 Blood Pressure Blood Pressure [Left Arm] 171/83 H 170/80 H Pulse Oximetry 99 99 99 <Violette Johns, DO - Last Filed: 09/23/19 08:26> Orders Ordered: Discontinued Medications Sodium Chloride (Normal Saline 0.9%) 1,000 mls @ 1,000 mls/hr IV BOLUS ONE Stop: 09/21/19 18:29 Last Infusion: 09/21/19 19:19 Dose: 0 mls/hr Documented by: Admin: 09/21/19 17:50 Dose: 1,000 mls/hr Documented by: YAMILE Vital Signs Vital signs: Vital Signs - 8 hr 09/21/19 15:49 09/21/19 16:37 09/21/19 17:00 Temperature 98.6 F Pulse Rate 103 H 105 H 109 H Respiratory Rate 22 20 18 Blood Pressure 186/99 H Blood Pressure [Left Arm] 186/104 H 142/85 H Pulse Oximetry 99 99 98 09/21/19 18:00 09/21/19 18:15 09/21/19 18:21 Temperature Pulse Rate 110 H 102 H 101 H Respiratory Rate 20 22 20 Blood Pressure Blood Pressure [Left Arm] 156/86 H 168/102 H 168/102 H Pulse Oximetry 98 98 97 09/21/19 19:05 09/21/19 19:21 09/21/19 19:54 Temperature Pulse Rate 93 H 90 90 Respiratory Rate 17 20 18 Blood Pressure Blood Pressure [Left Arm] 171/83 H 170/80 H Pulse Oximetry 99 99 99 MDM - SOB/Dyspnea <JORDAN CabanP-BC - Last Filed: 09/21/19 21:17> Lab Data Result diagrams: 09/21/19 16:13 09/21/19 16:42 Labs: Lab Results 09/21/19 09/21/19 09/21/19 Range/Units 16:13 16:13 16:29 WBC 6.2 (4.5-11.0) X10^3/uL RBC 4.54 (4.0-5.2) X10^6/uL Hgb 14.1 (12.0-16.0) g/dL Hct 41.7 (36-46) % MCV 91.9 (80-100) fL MCH 31.1 (26-34) PG MCHC 33.8 (30-36) % RDW 13.7 (11.6-14.8) % Plt Count 377 (150-400) X10^3/uL Neut % (Auto) 58.6 (50-75) % Lymph % (Auto) 27.6 (25-40) % Powell % (Auto) 10.8 (3-14) % Eos % (Auto) 1.9 L (2-4) % Baso % (Auto) 1.1 (0-2) % Neut # (Auto) 3700 (4589-6070) /uL Lymph # (Auto) 1700 (9799-6658) /uL Powell # (Auto) 700 (0-900) /uL Eos # (Auto) 100 (0-450) /uL Baso # (Auto) 100 (0-100) /uL D-Dimer (<230) ng/mL Sodium (137-145) mmol/L Potassium (3.4-5.1) mmol/L Chloride (98-107) mmol/L Carbon Dioxide (22-32) mmol/L BUN (7-17) mg/dL Creatinine (0.52-1.04) mg/dL Estimated GFR (>60) mL/min BUN/Creatinine Ratio (6-22) Glucose (80-110) mg/dL Lactate 1.8 (0.7-2.1) mmol/L Calcium (8.4-10.2) mg/dL Ferritin (11-264) ng/mL Total Bilirubin (0.2-1.3) mg/dL AST (14-36) IU/L ALT (<35) IU/L Alkaline Phosphatase (38-126) U/L Total Creatine Kinase (30-135) U/L CK-MB (CK-2) CK-MB (CK-2) Rel Index Troponin I (0.01-0.034) ng/mL C-Reactive Protein (<1.0) mg/dL NT-Pro-B Natriuret Pep (<450) pg/mL Total Protein (6.3-8.2) g/dL Albumin (3.5-5.0) g/dL Globulin (1.7-4.1) g/dL Albumin/Globulin Ratio (1.0-2.8) Procalcitonin (<0.5) ng/mL Urine Color Urine Appearance Urine pH (4.5-8.0) Ur Specific [place] (1.000-1.035) Urine Protein (Negative) Urine Glucose (UA) (Negative) g/dL Urine Ketones (NEGATIVE) Urine Occult Blood (Negative) Urine Nitrate (Negative) Urine Bilirubin (NEGATIVE) Urine Urobilinogen (0.2) E.U./dL Ur Leukocyte Esterase (NEGATIVE) Urine RBC (0-5/HPF) Urine WBC (0-5/HPF) Ur Squamous Epith Cells (0-5/HPF) Amorphous Sediment Urine Bacteria (None) Ur Culture Indicated? COVID-19 PCR Negative (Negative) 09/21/19 09/21/19 09/21/19 Range/Units 16:42 16:42 16:42 WBC (4.5-11.0) X10^3/uL RBC (4.0-5.2) X10^6/uL Hgb (12.0-16.0) g/dL Hct (36-46) % MCV (80-100) fL MCH (26-34) PG MCHC (30-36) % RDW (11.6-14.8) % Plt Count (150-400) X10^3/uL Neut % (Auto) (50-75) % Lymph % (Auto) (25-40) % Powell % (Auto) (3-14) % Eos % (Auto) (2-4) % Baso % (Auto) (0-2) % Neut # (Auto) (1715-4614) /uL Lymph # (Auto) (0484-9393) /uL Powell # (Auto) (0-900) /uL Eos # (Auto) (0-450) /uL Baso # (Auto) (0-100) /uL D-Dimer < 200 (<230) ng/mL Sodium 136 L (137-145) mmol/L Potassium 4.0 (3.4-5.1) mmol/L Chloride 104 (98-107) mmol/L Carbon Dioxide 22 (22-32) mmol/L BUN 13 (7-17) mg/dL Creatinine 0.79 (0.52-1.04) mg/dL Estimated GFR > 60.0 (>60) mL/min BUN/Creatinine Ratio 16.5 (6-22) Glucose 95 (80-110) mg/dL Lactate (0.7-2.1) mmol/L Calcium 9.9 (8.4-10.2) mg/dL Ferritin 13 (11-264) ng/mL Total Bilirubin 0.5 (0.2-1.3) mg/dL AST 28 (14-36) IU/L ALT 14 (<35) IU/L Alkaline Phosphatase 95 (38-126) U/L Total Creatine Kinase 48 (30-135) U/L CK-MB (CK-2) TNP CK-MB (CK-2) Rel Index TNP Troponin I < 0.012 (0.01-0.034) ng/mL C-Reactive Protein < 0.5 (<1.0) mg/dL NT-Pro-B Natriuret Pep 196 (<450) pg/mL Total Protein 7.3 (6.3-8.2) g/dL Albumin 4.4 (3.5-5.0) g/dL Globulin 2.9 (1.7-4.1) g/dL Albumin/Globulin Ratio 1.5 (1.0-2.8) Procalcitonin (<0.5) ng/mL Urine Color Urine Appearance Urine pH (4.5-8.0) Ur Specific [place] (1.000-1.035) Urine Protein (Negative) Urine Glucose (UA) (Negative) g/dL Urine Ketones (NEGATIVE) Urine Occult Blood (Negative) Urine Nitrate (Negative) Urine Bilirubin (NEGATIVE) Urine Urobilinogen (0.2) E.U./dL Ur Leukocyte Esterase (NEGATIVE) Urine RBC (0-5/HPF) Urine WBC (0-5/HPF) Ur Squamous Epith Cells (0-5/HPF) Amorphous Sediment Urine Bacteria (None) Ur Culture Indicated? COVID-19 PCR (Negative) 09/21/19 09/21/19 09/21/19 Range/Units 16:55 19:10 19:17 WBC (4.5-11.0) X10^3/uL RBC (4.0-5.2) X10^6/uL Hgb (12.0-16.0) g/dL Hct (36-46) % MCV (80-100) fL MCH (26-34) PG MCHC (30-36) % RDW (11.6-14.8) % Plt Count (150-400) X10^3/uL Neut % (Auto) (50-75) % Lymph % (Auto) (25-40) % Powell % (Auto) (3-14) % Eos % (Auto) (2-4) % Baso % (Auto) (0-2) % Neut # (Auto) (9227-3651) /uL Lymph # (Auto) (1308-8466) /uL Powell # (Auto) (0-900) /uL Eos # (Auto) (0-450) /uL Baso # (Auto) (0-100) /uL D-Dimer (<230) ng/mL Sodium (137-145) mmol/L Potassium (3.4-5.1) mmol/L Chloride (98-107) mmol/L Carbon Dioxide (22-32) mmol/L BUN (7-17) mg/dL Creatinine (0.52-1.04) mg/dL Estimated GFR (>60) mL/min BUN/Creatinine Ratio (6-22) Glucose (80-110) mg/dL Lactate (0.7-2.1) mmol/L Calcium (8.4-10.2) mg/dL Ferritin (11-264) ng/mL Total Bilirubin (0.2-1.3) mg/dL AST (14-36) IU/L ALT (<35) IU/L Alkaline Phosphatase (38-126) U/L Total Creatine Kinase 44 (30-135) U/L CK-MB (CK-2) TNP CK-MB (CK-2) Rel Index TNP Troponin I < 0.012 (0.01-0.034) ng/mL C-Reactive Protein (<1.0) mg/dL NT-Pro-B Natriuret Pep (<450) pg/mL Total Protein (6.3-8.2) g/dL Albumin (3.5-5.0) g/dL Globulin (1.7-4.1) g/dL Albumin/Globulin Ratio (1.0-2.8) Procalcitonin < 0.05 (<0.5) ng/mL Urine Color Yellow Urine Appearance Cloudy Urine pH 6.5 (4.5-8.0) Ur Specific [place] 1.010 (1.000-1.035) Urine Protein Negative (Negative) Urine Glucose (UA) Negative (Negative) g/dL Urine Ketones Trace H (NEGATIVE) Urine Occult Blood Trace-intact (Negative) Urine Nitrate Negative (Negative) Urine Bilirubin Negative (NEGATIVE) Urine Urobilinogen 0.2 (0.2) E.U./dL Ur Leukocyte Esterase 1+ H (NEGATIVE) Urine RBC 1-5/hpf (0-5/HPF) Urine WBC 5-10/hpf H (0-5/HPF) Ur Squamous Epith Cells 1-5 /hpf (0-5/HPF) Amorphous Sediment 2+ Urine Bacteria Moderate (10-30) H (None) Ur Culture Indicated? Specimen cultured COVID-19 PCR (Negative) Imaging Data Chest x-ray: Radiologist's Impression: [address] [place] [id number] XRay Report Signed Patient: Devon Noguera#: [id number] : 1935cct:[id number] Age/Sex: 84 / FDate of Service: 09/21/19 Loc: ED Accession Number: [id number] Procedure: XR chest 1V Ordering Provider: Azul Salas- PROCEDURE: XR CHEST 1V INDICATIONS: flu-like symptoms TECHNIQUE: One view of the chest was acquired. COMPARISON: [facility], CR, XR CHEST 1V, 10/01/2017, 18:56. FINDINGS: Surgical changes and devices: None. Lungs and pleura: Scattered subsegmental atelectasis and/or scarring. No focal consolidation. No pleural effusions or pneumothorax. Mediastinum: Mediastinal contours appear normal. Heart size is normal. Bones and chest wall: No suspicious bony lesions. Overlying soft tissues appear unremarkable. IMPRESSION: No acute disease Dictated by: Zack Grace M.D. on 09/21/2019 at 17:19 Approved by: Zack Grace M.D. on 09/21/2019 at 17:20 MDM Narrative Medical decision making narrative: The patient is an 84-year-old female who presents with a chief complaint of shortness of breath since last weekend. Her initial troponin is negative, repeat troponin is also negative, helping rule out any current ACS. Her BNP is negative. Her D-dimer is negative helping rule out PE. Her chest x-ray shows no acute findings which helps rule out any pneumonia. Her commode test comes back negative. The patient felt much improved after a L of fluid requested to go home. I discussed at length the importance of following up with primary care provider as well as coming back to the emergency department for any acute concerns. Patient and daughter state understanding of no questions or concerns upon discharge and state understanding return precau tions as well as follow-up care. <Violette Johns, DO - Last Filed: 09/23/19 08:26> Lab Data Labs: Lab Results 09/21/19 09/21/19 09/21/19 Range/Units 16:13 16:13 16:29 WBC 6.2 (4.5-11.0) X10^3/uL RBC 4.54 (4.0-5.2) X10^6/uL Hgb 14.1 (12.0-16.0) g/dL Hct 41.7 (36-46) % MCV 91.9 (80-100) fL MCH 31.1 (26-34) PG MCHC 33.8 (30-36) % RDW 13.7 (11.6-14.8) % Plt Count 377 (150-400) X10^3/uL Neut % (Auto) 58.6 (50-75) % Lymph % (Auto) 27.6 (25-40) % Powell % (Auto) 10.8 (3-14) % Eos % (Auto) 1.9 L (2-4) % Baso % (Auto) 1.1 (0-2) % Neut # (Auto) 3700 (9690-5706) /uL Lymph # (Auto) 1700 (8566-1807) /uL Powell # (Auto) 700 (0-900) /uL Eos # (Auto) 100 (0-450) /uL Baso # (Auto) 100 (0-100) /uL D-Dimer (<230) ng/mL Sodium (137-145) mmol/L Potassium (3.4-5.1) mmol/L Chloride (98-107) mmol/L Carbon Dioxide (22-32) mmol/L BUN (7-17) mg/dL Creatinine (0.52-1.04) mg/dL Estimated GFR (>60) mL/min BUN/Creatinine Ratio (6-22) Glucose (80-110) mg/dL Lactate 1.8 (0.7-2.1) mmol/L Calcium (8.4-10.2) mg/dL Ferritin (11-264) ng/mL Total Bilirubin (0.2-1.3) mg/dL AST (14-36) IU/L ALT (<35) IU/L Alkaline Phosphatase (38-126) U/L Total Creatine Kinase (30-135) U/L CK-MB (CK-2) CK-MB (CK-2) Rel Index Troponin I (0.01-0.034) ng/mL C-Reactive Protein (<1.0) mg/dL NT-Pro-B Natriuret Pep (<450) pg/mL Total Protein (6.3-8.2) g/dL Albumin (3.5-5.0) g/dL Globulin (1.7-4.1) g/dL Albumin/Globulin Ratio (1.0-2.8) Procalcitonin (<0.5) ng/mL Urine Color Urine Appearance Urine pH (4.5-8.0) Ur Specific [place] (1.000-1.035) Urine Protein (Negative) Urine Glucose (UA) (Negative) g/dL Urine Ketones (NEGATIVE) Urine Occult Blood (Negative) Urine Nitrate (Negative) Urine Bilirubin (NEGATIVE) Urine Urobilinogen (0.2) E.U./dL Ur Leukocyte Esterase (NEGATIVE) Urine RBC (0-5/HPF) Urine WBC (0-5/HPF) Ur Squamous Epith Cells (0-5/HPF) Amorphous Sediment Urine Bacteria (None) Ur Culture Indicated? COVID-19 PCR Negative (Negative) 09/21/19 09/21/19 09/21/19 Range/Units 16:42 16:42 16:42 WBC (4.5-11.0) X10^3/uL RBC (4.0-5.2) X10^6/uL Hgb (12.0-16.0) g/dL Hct (36-46) % MCV (80-100) fL MCH (26-34) PG MCHC (30-36) % RDW (11.6-14.8) % Plt Count (150-400) X10^3/uL Neut % (Auto) (50-75) % Lymph % (Auto) (25-40) % Powell % (Auto) (3-14) % Eos % (Auto) (2-4) % Baso % (Auto) (0-2) % Neut # (Auto) (1938-6120) /uL Lymph # (Auto) (5370-9769) /uL Powell # (Auto) (0-900) /uL Eos # (Auto) (0-450) /uL Baso # (Auto) (0-100) /uL D-Dimer < 200 (<230) ng/mL Sodium 136 L (137-145) mmol/L Potassium 4.0 (3.4-5.1) mmol/L Chloride 104 (98-107) mmol/L Carbon Dioxide 22 (22-32) mmol/L BUN 13 (7-17) mg/dL Creatinine 0.79 (0.52-1.04) mg/dL Estimated GFR > 60.0 (>60) mL/min BUN/Creatinine Ratio 16.5 (6-22) Glucose 95 (80-110) mg/dL Lactate (0.7-2.1) mmol/L Calcium 9.9 (8.4-10.2) mg/dL Ferritin 13 (11-264) ng/mL Total Bilirubin 0.5 (0.2-1.3) mg/dL AST 28 (14-36) IU/L ALT 14 (<35) IU/L Alkaline Phosphatase 95 (38-126) U/L Total Creatine Kinase 48 (30-135) U/L CK-MB (CK-2) TNP CK-MB (CK-2) Rel Index TNP Troponin I < 0.012 (0.01-0.034) ng/mL C-Reactive Protein < 0.5 (<1.0) mg/dL NT-Pro-B Natriuret Pep 196 (<450) pg/mL Total Protein 7.3 (6.3-8.2) g/dL Albumin 4.4 (3.5-5.0) g/dL Globulin 2.9 (1.7-4.1) g/dL Albumin/Globulin Ratio 1.5 (1.0-2.8) Procalcitonin (<0.5) ng/mL Urine Color Urine Appearance Urine pH (4.5-8.0) Ur Specific [place] (1.000-1.035) Urine Protein (Negative) Urine Glucose (UA) (Negative) g/dL Urine Ketones (NEGATIVE) Urine Occult Blood (Negative) Urine Nitrate (Negative) Urine Bilirubin (NEGATIVE) Urine Urobilinogen (0.2) E.U./dL Ur Leukocyte Esterase (NEGATIVE) Urine RBC (0-5/HPF) Urine WBC (0-5/HPF) Ur Squamous Epith Cells (0-5/HPF) Amorphous Sediment Urine Bacteria (None) Ur Culture Indicated? COVID-19 PCR (Negative) 09/21/19 09/21/19 09/21/19 Range/Units 16:55 19:10 19:17 WBC (4.5-11.0) X10^3/uL RBC (4.0-5.2) X10^6/uL Hgb (12.0-16.0) g/dL Hct (36-46) % MCV (80-100) fL MCH (26-34) PG MCHC (30-36) % RDW (11.6-14.8) % Plt Count (150-400) X10^3/uL Neut % (Auto) (50-75) % Lymph % (Auto) (25-40) % [place] % (Auto) (3-14) % Eos % (Auto) (2-4) % Baso % (Auto) (0-2) % Neut # (Auto) (6346-5691) /uL Lymph # (Auto) (4965-1388) /uL [place] # (Auto) (0-900) /uL Eos # (Auto) (0-450) /uL Baso # (Auto) (0-100) /uL D-Dimer (<230) ng/mL Sodium (137-145) mmol/L Potassium (3.4-5.1) mmol/L Chloride (98-107) mmol/L Carbon Dioxide (22-32) mmol/L BUN (7-17) mg/dL Creatinine (0.52-1.04) mg/dL Estimated GFR (>60) mL/min BUN/Creatinine Ratio (6-22) Glucose (80-110) mg/dL Lactate (0.7-2.1) mmol/L Calcium (8.4-10.2) mg/dL Ferritin (11-264) ng/mL Total Bilirubin (0.2-1.3) mg/dL AST (14-36) IU/L ALT (<35) IU/L Alkaline Phosphatase (38-126) U/L Total Creatine Kinase 44 (30-135) U/L CK-MB (CK-2) TNP CK-MB (CK-2) Rel Index TNP Troponin I < 0.012 (0.01-0.034) ng/mL C-Reactive Protein (<1.0) mg/dL NT-Pro-B Natriuret Pep (<450) pg/mL Total Protein (6.3-8.2) g/dL Albumin (3.5-5.0) g/dL Globulin (1.7-4.1) g/dL Albumin/Globulin Ratio (1.0-2.8) Procalcitonin < 0.05 (<0.5) ng/mL Urine Color Yellow Urine Appearance Cloudy Urine pH 6.5 (4.5-8.0) Ur Specific [place] 1.010 (1.000-1.035) Urine Protein Negative (Negative) Urine Glucose (UA) Negative (Negative) g/dL Urine Ketones Trace H (NEGATIVE) Urine Occult Blood Trace-intact (Negative) Urine Nitrate Negative (Negative) Urine Bilirubin Negative (NEGATIVE) Urine Urobilinogen 0.2 (0.2) E.U./dL Ur Leukocyte Esterase 1+ H (NEGATIVE) Urine RBC 1-5/hpf (0-5/HPF) Urine WBC 5-10/hpf H (0-5/HPF) Ur Squamous Epith Cells 1-5 /hpf (0-5/HPF) Amorphous Sediment 2+ Urine Bacteria Moderate (10-30) H (None) Ur Culture Indicated? Specimen cultured COVID-19 PCR (Negative) Discharge Plan Departure Patient Disposition: Home Clinical Impression: Shortness of Breath Discharge Date/Time: 09/21/19 19:57 Instructions: DI for Shortness of Breath Activity Restrictions/Additional Instructions: Thank you for trusting us with your care today As I discussed, your lab work came back well, as well as a repeat lab work. You responded well to fluids. Place drink more water to be sure that your hydra kt. Your chest x-ray came back with no pneumonia, your coronavirus test came back negative, your labwork shows no evidence of heart dysfunction or blood clot in your lung Please follow-up with primary care provider in the next few days Please come back to the emergency department for any acute concerns Prescriptions: No Action losartan [Cozaar] 50 mg tablet 100 mg PO QDAY Qty: 180 RF: 3 hydroxyzine pamoate 50 mg capsule 50 mg PO BEDTIME MDD insomnia RF: 0 clopidogrel 75 mg tablet 75 mg PO DAILY RF: 0 polyethylene glycol 3350 [Miralax] 17 gram/dose powder 17 gram PO DAILY PRN (Reason: Constipation) RF: 0 lovastatin 20 mg tablet 20 mg PO BEDTIME RF: 0 fluoxetine 20 mg capsule 20 mg PO DAILY RF: 0 Referrals: Klever Hernández MD [Primary Care Provider] - <Violette Johns DO - Last Filed: 09/23/19 08:26> [facility] Lizzy[facility] Attestation: I was immediately available in the department for consultation. Documentation has been reviewed. I agree with assessment and plan.
== END 2019-09-21 19:57 | disposition home or self-care (01) ==
PROVIDERS: Emergency Medicine; Emergency Provider Nurse Practitioner Family; PCP Family Medicine
DX: R06.02 Shortness of breath (principal); I10 Essential (primary) hypertension; R68.89 Other general symptoms and signs
CPT/HCPCS: 36415; 71045; 80053; 81001; 82550; 82728; 83605; 83880; 84145; 84484; 85025; 85379; 86140; 87086; 87635; 93005; 96360; 99284; 99285

== ENCOUNTER → 2019-09-30 12:33 | Outpatient (CLI) | payer OTHER, SELFPAY | PROVIDERS: PCP Family Medicine; Visit Provider Family Medicine | DX: R30.0 Dysuria (principal) | CPT/HCPCS: 87086 ==

== ENCOUNTER → 2020-10-19 08:22 | Outpatient (CLI) | payer OTHER, SELFPAY ==
[2020-10-19 08:58] LABS: Add Manual Diff / Slide Review NO; Basophils Absolute Auto 0 /uL (0-100); Basophils Percent Auto 0.7 % (0-2); Eosinophils Absolute Auto 200 /uL (0-450); Eosinophils Percent Auto 3.1 % (2-4); Hematocrit 44.8 % (36-46); Hemoglobin 14.8 g/dL (12.0-16.0); Lymphocytes Absolute Auto 1500 /uL (1100-4500); Lymphocytes Percent Auto 26.1 % (25-40); Mean Corpuscular Hemoglobin 30.6 PG (26-34); Mean Corpuscular Volume 92.8 fL (80-100); Monocytes Absolute Auto 500 /uL (0-900); Monocytes Percent Auto 9.8 % (3-14); Neutrophils Absolute Auto 3400 /uL (1500-7000); Neutrophils Percent Auto 60.3 % (50-75); Platelet Count 355 X10^3/uL (150-400); Red Blood Cell Count 4.82 X10^6/uL (4.0-5.2); Red Cell Distribution Width 13.1 % (11.6-14.8); White Blood Cell Count 5.6 X10^3/uL (4.5-11.0)
[2020-10-19 09:13] LABS: Alanine Aminotransferase 13 IU/L (<35); Albumin 4.5 g/dL (3.5-5.0); Albumin Globulin Ratio 1.4 (1.0-2.8); Alkaline Phosphatase 79 U/L (38-126); Aspartate Aminotransferase 26 IU/L (14-36); BUN Creatinine Ratio 13.3 (6-22); Bilirubin Total 1.1 mg/dL (0.2-1.3); Blood Urea Nitrogen 10 mg/dL (7-17); Carbon Dioxide 28 mmol/L (22-32); Chloride 102 mmol/L (98-107); Cholesterol 255 mg/dL (140-199); Estimated Glomerular Filt Rate > 60.0 mL/min (>60); Globulin 3.2 g/dL (1.7-4.1); Glucose 105 mg/dL (80-110); HDL Cholesterol 92 mg/dL (40-60); HEMOLYSIS < 15 (0-50); LDL Cholesterol Calculated 129 mg/dL (<100); Potassium 4.2 mmol/L (3.4-5.1); Sodium 137 mmol/L (137-145); Total Protein 7.7 g/dL (6.3-8.2); Triglycerides 170 mg/dL (35-150)
[2020-10-19 09:47] LABS: Thyroid Stimulating Hormone 1.99 uIU/mL (0.47-4.68)
== END ==
PROVIDERS: PCP Family Medicine; Referring Provider Family Medicine; Visit Provider Family Medicine
DX: E78.2 Mixed hyperlipidemia (principal); I10 Essential (primary) hypertension; F32.9 Major depressive disorder, single episode, unspecified; Z85.3 Personal history of malignant neoplasm of breast
CPT/HCPCS: 36415; 80053; 80061; 84443; 85025

== ENCOUNTER → 2021-05-29 12:56 | Outpatient (CLI) | payer OTHER, SELFPAY ==
[2021-05-29 14:17] LABS: Add Manual Diff / Slide Review NO; Basophils Absolute Auto 0 /uL (0-100); Eosinophils Absolute Auto 100 /uL (0-450); Eosinophils Percent Auto 1.6 % (2-4); Hematocrit 40.6 % (36-46); Hemoglobin 13.6 g/dL (12.0-16.0); Lymphocytes Absolute Auto 1000 /uL (1100-4500); Lymphocytes Percent Auto 20.8 % (25-40); Mean Corpuscular HGB Conc 33.5 % (30-36); Mean Corpuscular Hemoglobin 30.7 PG (26-34); Mean Corpuscular Volume 91.5 fL (80-100); Monocytes Absolute Auto 400 /uL (0-900); Monocytes Percent Auto 7.7 % (3-14); Neutrophils Absolute Auto 3200 /uL (1500-7000); Neutrophils Percent Auto 68.9 % (50-75); Platelet Count 356 X10^3/uL (150-400); Red Blood Cell Count 4.43 X10^6/uL (4.0-5.2); Red Cell Distribution Width 13.3 % (11.6-14.8); White Blood Cell Count 4.6 X10^3/uL (4.5-11.0)
[2021-05-29 16:36] LABS: Alanine Aminotransferase 12 IU/L (<35); Albumin 4.3 g/dL (3.5-5.0); Albumin Globulin Ratio 1.5 (1.0-2.8); Alkaline Phosphatase 65 U/L (38-126); Aspartate Aminotransferase 22 IU/L (14-36); BUN Creatinine Ratio 16.2 (6-22); Bilirubin Total 0.8 mg/dL (0.2-1.3); Blood Urea Nitrogen 12 mg/dL (7-17); Carbon Dioxide 31 mmol/L (22-32); Chloride 99 mmol/L (98-107); Estimated Glomerular Filt Rate > 60.0 mL/min (>60); Globulin 2.8 g/dL (1.7-4.1); Glucose 100 mg/dL (80-110); HEMOLYSIS < 15 (0-50); Potassium 4.2 mmol/L (3.4-5.1); Sodium 135 mmol/L (137-145); Total Protein 7.1 g/dL (6.3-8.2)
== END ==
PROVIDERS: PCP Family Medicine; Referring Provider Family Medicine; Visit Provider Family Medicine
DX: R53.83 Other fatigue (principal)
CPT/HCPCS: 36415; 80053; 85025

== ENCOUNTER → 2021-08-22 12:59 | Outpatient (CLI) | payer OTHER, SELFPAY ==
[2021-08-22 14:13] LABS: Alanine Aminotransferase 13 IU/L (<35); Albumin 4.5 g/dL (3.5-5.0); Albumin Globulin Ratio 1.5 (1.0-2.8); Alkaline Phosphatase 85 U/L (38-126); Aspartate Aminotransferase 23 IU/L (14-36); BUN Creatinine Ratio 14.9 (6-22); Bilirubin Total 0.7 mg/dL (0.2-1.3); Blood Urea Nitrogen 11 mg/dL (7-17); Calcium 9.5 mg/dL (8.4-10.2); Carbon Dioxide 27 mmol/L (22-32); Chloride 98 mmol/L (98-107); Estimated Glomerular Filt Rate > 60 mL/min (>60); Globulin 3.1 g/dL (1.7-4.1); Glucose 166 mg/dL (80-110); HEMOLYSIS < 15 (0-50); Iron 106 ug/dL (37-170); Potassium 4.1 mmol/L (3.4-5.1); Sodium 136 mmol/L (137-145); Total Protein 7.6 g/dL (6.3-8.2)
[2021-08-22 14:16] LABS: Add Manual Diff / Slide Review NO; Basophils Absolute Auto 0 /uL (0-100); Basophils Percent Auto 0.9 % (0-2); Eosinophils Absolute Auto 100 /uL (0-450); Eosinophils Percent Auto 1.4 % (2-4); Hematocrit 41.4 % (36-46); Lymphocytes Absolute Auto 900 /uL (1100-4500); Lymphocytes Percent Auto 18.1 % (25-40); Mean Corpuscular HGB Conc 33.8 % (30-36); Mean Corpuscular Hemoglobin 30.9 PG (26-34); Mean Corpuscular Volume 91.5 fL (80-100); Monocytes Absolute Auto 400 /uL (0-900); Monocytes Percent Auto 7.3 % (3-14); Neutrophils Absolute Auto 3700 /uL (1500-7000); Neutrophils Percent Auto 72.3 % (50-75); Platelet Count 362 X10^3/uL (150-400); Red Blood Cell Count 4.52 X10^6/uL (4.0-5.2); Red Cell Distribution Width 12.9 % (11.6-14.8); White Blood Cell Count 5.1 X10^3/uL (4.5-11.0)
[2021-08-22 14:25] LABS: Percent Iron Saturation 27 % (15-50); Total Iron Binding Capacity 393 ug/dL (265-497); Transferrin 292 mg/dL (206-381)
[2021-08-22 14:45] LABS: TSH w/ Reflex to FT4 2.26 uIU/mL (0.47-4.68)
[2021-08-22 14:48] LABS: Ferritin 13 ng/mL (11-264)
[2021-08-22 15:02] LABS: Vitamin B12 276 pg/mL (239-931)
[2021-08-23 01:29] LABS: Hemoglobin A1C% w Est Avg Glu 5.8 % (4.0-6.0)
== END ==
PROVIDERS: PCP Family Medicine; Referring Provider Physician Assistant; Visit Provider Physician Assistant
DX: I10 Essential (primary) hypertension (principal); R53.83 Other fatigue; R06.00 Dyspnea, unspecified; R73.09 Other abnormal glucose
CPT/HCPCS: 36415; 80053; 82607; 82728; 83540; 83550; 84443; 85025

== ENCOUNTER → 2021-08-22 13:16 | Outpatient (CLI) | payer OTHER, SELFPAY ==
--- NOTE | 2021-08-22 13:18 | DI.RAD.S_ITS ---
PROCEDURE: XR CHEST 2V INDICATIONS: Shortness of breath TECHNIQUE: 2 views of the chest were acquired. COMPARISON: [facility], , XR CHEST 1V, 09/21/2019, 16:59. FINDINGS: Surgical changes and devices: None. Lungs and pleura: Atelectasis in the left lung base. No pleural effusions or pneumothorax. Mediastinum: Mediastinal contours are normal. Heart size is normal. Moderate-sized retrocardiac hiatal hernia. Bones and chest wall: No suspicious bony abnormalities. Soft tissues appear unremarkable. IMPRESSION: No acute cardiopulmonary disease process. Dictated by: Cristina Vela MD, PhD on 08/22/2021 at 13:50 Approved by: Cristina Vela MD, PhD on 08/22/2021 at 13:59
== END ==
PROVIDERS: PCP Family Medicine; Referring Provider Physician Assistant; Visit Provider Physician Assistant
DX: R06.00 Dyspnea, unspecified (principal); R53.83 Other fatigue; I10 Essential (primary) hypertension; R73.09 Other abnormal glucose
CPT/HCPCS: 36415; 71046; 80053; 82607; 82728; 83036; 83540; 83550; 84443; 85025

== ENCOUNTER → 2021-11-23 11:30 | Outpatient (CLI) | payer OTHER, SELFPAY ==
[2021-11-23 14:59] LABS: Vitamin B12 619 pg/mL (239-931)
== END ==
PROVIDERS: PCP Family Medicine; Referring Provider Family Medicine; Visit Provider Family Medicine
DX: E53.8 Deficiency of other specified B group vitamins (principal)
CPT/HCPCS: 36415; 82607

== ENCOUNTER → 2022-06-20 10:38 | Outpatient (CLI) | payer OTHER, SELFPAY ==
[2022-06-20 11:23] LABS: Add Manual Diff / Slide Review NO; Basophils Absolute Auto 0 /uL (0-100); Basophils Percent Auto 0.8 % (0-2); Eosinophils Absolute Auto 100 /uL (0-450); Eosinophils Percent Auto 1.7 % (2-4); Hematocrit 41.7 % (36-46); Lymphocytes Absolute Auto 1100 /uL (1100-4500); Lymphocytes Percent Auto 23.7 % (25-40); Mean Corpuscular HGB Conc 33.7 % (30-36); Mean Corpuscular Hemoglobin 30.4 PG (26-34); Mean Corpuscular Volume 90.2 fL (80-100); Monocytes Absolute Auto 400 /uL (0-900); Monocytes Percent Auto 9.1 % (3-14); Neutrophils Absolute Auto 3100 /uL (1500-7000); Neutrophils Percent Auto 64.7 % (50-75); Platelet Count 377 X10^3/uL (150-400); Red Blood Cell Count 4.62 X10^6/uL (4.0-5.2); Red Cell Distribution Width 13.8 % (11.6-14.8); White Blood Cell Count 4.8 X10^3/uL (4.5-11.0)
[2022-06-20 11:56] LABS: Alanine Aminotransferase 16 IU/L (<35); Albumin 4.3 g/dL (3.5-5.0); Albumin Globulin Ratio 1.3 (1.0-2.8); Alkaline Phosphatase 74 U/L (38-126); Aspartate Aminotransferase 22 IU/L (14-36); Bilirubin Total 0.8 mg/dL (0.2-1.3); Blood Urea Nitrogen 16 mg/dL (7-17); Calcium 9.4 mg/dL (8.4-10.2); Carbon Dioxide 29 mmol/L (22-32); Chloride 97 mmol/L (98-107); Estimated Glomerular Filt Rate > 60 mL/min (>60); Globulin 3.3 g/dL (1.7-4.1); Glucose 116 mg/dL (80-110); HEMOLYSIS < 15 (0-50); Potassium 3.6 mmol/L (3.4-5.1); Sodium 134 mmol/L (137-145); Total Protein 7.6 g/dL (6.3-8.2)
[2022-06-20 12:20] LABS: TSH w/ Reflex to FT4 2.64 uIU/mL (0.47-4.68)
== END ==
PROVIDERS: PCP Family Medicine; Referring Provider Family Medicine; Visit Provider Family Medicine
DX: E53.8 Deficiency of other specified B group vitamins (principal); I10 Essential (primary) hypertension; I63.511 Cerebral infarction due to unspecified occlusion or stenosis of right middle cerebral artery
CPT/HCPCS: 36415; 80053; 84443; 85025

== ENCOUNTER 2022-10-24 16:07 | Emergency (ER) | payer OTHER, SELFPAY ==
[2022-10-24] VITALS (22 sets, daily range): BP systolic 162–236; BP diastolic 81–109; PULSE 73–107; RESP 14–35; TEMP 36.7; O2SAT 90–96; BMI 25.8
--- NOTE | 2022-10-24 16:18 | DI.RAD.S_ITS ---
PROCEDURE: XR CHEST 1V INDICATIONS: chest pain TECHNIQUE: One view of the chest was acquired. COMPARISON: [facility], CR, XR CHEST 2V, 08/22/2021, 13:15. [facility], CR, XR CHEST 1V, 09/21/2019, 16:59. [facility], CR, XR CHEST 1V, 10/01/2017, 18:56. FINDINGS: Surgical changes and devices: None. Lungs and pleura: Lungs are clear. No pleural effusions or pneumothorax. Mediastinum: Mediastinal contours appear normal. Heart size is normal. Hiatal hernia again noted. Bones and chest wall: No suspicious bony lesions. Overlying soft tissues appear unremarkable. IMPRESSION: No acute cardiopulmonary abnormality. Stable hiatal hernia. Approved by: Kurt Sutherland M.D. on 10/24/2022 at 17:36
[2022-10-24 16:56] LABS: Add Manual Diff / Slide Review NO; Basophils Absolute Auto 100 /uL (0-100); Basophils Percent Auto 1.1 % (0-2); Eosinophils Absolute Auto 100 /uL (0-450); Eosinophils Percent Auto 2.1 % (2-4); Hematocrit 38.3 % (36-46); Lymphocytes Absolute Auto 1200 /uL (1100-4500); Lymphocytes Percent Auto 24.3 % (25-40); Mean Corpuscular HGB Conc 33.9 % (30-36); Mean Corpuscular Hemoglobin 30.4 PG (26-34); Mean Corpuscular Volume 89.6 fL (80-100); Monocytes Absolute Auto 500 /uL (0-900); Monocytes Percent Auto 9.9 % (3-14); Neutrophils Absolute Auto 3100 /uL (1500-7000); Neutrophils Percent Auto 62.6 % (50-75); Platelet Count 359 X10^3/uL (150-400); Red Blood Cell Count 4.27 X10^6/uL (4.0-5.2); Red Cell Distribution Width 13.3 % (11.6-14.8)
[2022-10-24 17:08] LABS: Prothrombin Time 11.4 SECONDS (10.1-12.7)
[2022-10-24 17:10] LABS: PTT Partial Thromboplastin Tim 32 SECONDS (26-36)
[2022-10-24 17:14] LABS: Alanine Aminotransferase 15 IU/L (<35); Albumin 3.9 g/dL (3.5-5.0); Albumin Globulin Ratio 1.2 (1.0-2.8); Alkaline Phosphatase 75 U/L (38-126); Aspartate Aminotransferase 25 IU/L (14-36); BUN Creatinine Ratio 14.3 (6-22); Bilirubin Total 0.7 mg/dL (0.2-1.3); Blood Urea Nitrogen 10 mg/dL (7-17); Carbon Dioxide 27 mmol/L (22-32); Chloride 99 mmol/L (98-107); Creatine Kinase 54 U/L (30-135); Estimated Glomerular Filt Rate > 60 mL/min (>60); Globulin 3.3 g/dL (1.7-4.1); Glucose 101 mg/dL (80-110); HEMOLYSIS < 15 (0-50); Lipase 54 U/L (23-300); Magnesium 1.9 mg/dL (1.6-2.3); Potassium 4.2 mmol/L (3.4-5.1); Sodium 131 mmol/L (137-145); Total Protein 7.2 g/dL (6.3-8.2)
[2022-10-24 17:26] LABS: Troponin I < 0.012 ng/mL (0.01-0.034)
--- NOTE | 2022-10-24 19:30 | ED.WEAKNESS ---
HPI - Weakness General Chief complaint: Weakness Stated complaint: heart issues, difficulty breathing Time Seen by Provider: 10/24/22 19:28 Source: patient Mode of arrival: Ambulatory History of Present Illness HPI Narrative: Patient 87-year-old history of CVA, depression, dizziness, hypertension, hyperlipidemia, presenting today with a variety of symptoms. She reports that she is just not feeling great fatigued. She says that she feels dizzy and short of breath with walking. She also endorses some orthopnea. No fever chills or cough. No abdominal pain nausea vomiting. She reports that she is only dizzy when she stands up and walks. It not when she turns her head or sits up. She is no numbness tingling or weakness. No palpitations or chest pain. Related Data Previous Rx's Medication Instructions Recorded ciclopirox 8 % topical solution 1 applic topical BEDTIME #6.6 mL 01/17/22 (Ciclodan) fluoxetine 20 mg capsule See Rx Instructions .Route 03/07/22 .COMPLEX #90 caps losartan 50 mg tablet See Rx Instructions .Route 04/03/22 .COMPLEX #180 tabs lovastatin 20 mg tablet See Rx Instructions .Route 04/03/22 .COMPLEX #90 tabs clopidogrel 75 mg tablet See Rx Instructions .Route 05/30/22 .COMPLEX #90 tabs Allergies Allergy/AdvReac Type Severity Reaction Status Date / Time No Known Drug Allergies Allergy Verified 10/24/22 16:18 Review of Systems Review of Systems ROS Unobtainable: All systems reviewed & are unremarkable except as noted in HPI and below Patient History Medical History Ankle pain (2014) Anxiety (2004) Back pain Cerebrovascular accident (CVA) due to stenosis of right middle cerebral artery (04/09/16) Constipation (03/08/15) CVA (cerebral vascular accident) Depression, major Dizziness Elevated random blood glucose level Essential hypertension Essential hypertension (11/23/02) GERD (gastroesophageal reflux disease) Hearing loss (2012) History of breast cancer (1989) History of colon polyps Hyperlipidemia (10/13/03) Hyperlipidemia, unspecified Mumps (1974) Ovarian cyst (1964) Rheumatoid arthritis (2001) RLS (restless legs syndrome) (2009) Sleep apnea (1999) Surgical History Anesthesia History of bilateral salpingo-oophorectomy (BSO) History of left oophorectomy History of right mastectomy (1989) Status post surgery (01/09/09) Family History Sister CVA (cerebral vascular accident) Father No problems noted. Mother Ruptured appendix Social History marital status: Smoking Status: Never smoker alcohol intake: current substance use type: does not use Smoking Status: Never smoker alcohol intake frequency: 0-2 drinks per day Substance Use Type: does not use Exam Initial Vital Signs Initial Vital Signs: Vital Signs Temperature 98.1 F 10/24/22 16:12 Pulse Rate 107 H 10/24/22 16:12 Respiratory Rate 18 10/24/22 16:12 Blood Pressure 162/94 H 10/24/22 16:12 Pulse Oximetry 95 10/24/22 16:12 Oxygen Delivery Method Room Air 10/24/22 16:12 GENERAL: Alert pleasant 87-year-old female HEENT: Head atraumatic,EOMI, pupils reactive, face symmetric, moist mucous membranes CARDIOVASCULAR: Regular rate and rhythm without murmurs, rubs or gallops. RESPIRATORY: Breath sounds equal bilaterally, no wheezes rales or rhonchi. ABDOMEN: Soft, nontender. Normoactive bowel sounds all 4 quadrants. No guarding or rebound. EXTREMITIES: Normal range of motion, no clubbing or edema. Neurovascularly intact NEUROLOGICAL: Alert and oriented x4.Normal gait and speech. Cranial nerves II through XII grossly intact. Good [id number], good [id number], strength equal bilaterally, no dysarthria or aphasia, sensation in tact to soft touch bilaterally, no visual changes, no facial droop SKIN: Warm, dry, no laceration, no petechiae, no rashes or lesions. Scores NIH Stroke Scale Level of Conciousness: Alert, keenly responsive Ask month/age: Answers both questions correctly. Open/close eyes, close hand: Performs both tasks correctly Best gaze horizontal: Normal Visual casanova: No visual loss Facial palsy: Normal symetrical movement Left arm drift: No drift for full 10 sec Right arm drift: No drift for full 10 sec Left leg drift: No drift for full 5 sec Right leg drift: No drift for full 5 sec Limb ataxia: Absent Sensory on face/arms/legs: Normal, no sensory loss Best language: No aphasia, normal Dysarthria: Normal Extinction or inattention: No abnormality Total NIH Stroke scale score: 0 Course Orders Ordered: ED Orders 10/24/22 16:18 XR chest 1V Stat EKG-12 Lead Stat 10/24/22 16:35 BNP [NT-proBNP (BNP-Adult 18+)] Stat Complete Blood Count AUTO DIFF Stat Comprehensive Metabolic Panel Stat Lipase Stat Magnesium Stat PTT Partial Thromboplastin Logan Stat Prothrombin Time INR Stat Troponin & CK Cardiac Panel Stat 10/24/22 19:44 CT head/brain wo con Stat 10/24/22 21:28 UA dip and micro [Urinalysis and Microscopic] Stat Urine Culture Stat Discontinued Medications Aspirin (Aspirin 81 Mg Chew Tab) 324 mg PO NOW ONE Stop: 10/24/22 16:19 Labetalol HCl (Labetalol 20 Mg/4 Ml Syringe) 5 mg IV NOW ONE Stop: 10/24/22 20:59 Last Admin: 10/24/22 21:03 Dose: 5 mg Documented By: PATRICK Vital Signs Vital signs: Vital Signs - 8 hr 10/24/22 20:12 10/24/22 17:24 10/24/22 17:26 Pulse Rate 96 H Pulse Rate [Orthostatic Lying] 99 H Pulse Rate [Orthostatic Sitting] 97 H Pulse Rate [Orthostatic Standing] 100 H Respiratory Rate Blood Pressure 217/103 H Blood Pressure [Orthostatic Lying] 229/106 H Blood Pressure [Orthostatic Sitting] 221/103 H Blood Pressure [Orthostatic Standing] 204/103 H Pulse Oximetry 94 10/24/22 17:26 10/24/22 17:30 10/24/22 17:31 Pulse Rate 101 H 101 H Pulse Rate [Orthostatic Lying] Pulse Rate [Orthostatic Sitting] Pulse Rate [Orthostatic Standing] Respiratory Rate 24 32 H Blood Pressure 202/103 H Blood Pressure [Orthostatic Lying] Blood Pressure [Orthostatic Sitting] Blood Pressure [Orthostatic Standing] Pulse Oximetry 96 95 10/24/22 17:31 10/24/22 18:00 10/24/22 18:00 Pulse Rate 101 H 93 H Pulse Rate [Orthostatic Lying] Pulse Rate [Orthostatic Sitting] Pulse Rate [Orthostatic Standing] Respiratory Rate 33 H 35 H Blood Pressure 198/103 H Blood Pressure [Orthostatic Lying] Blood Pressure [Orthostatic Sitting] Blood Pressure [Orthostatic Standing] Pulse Oximetry 96 95 10/24/22 18:30 10/24/22 18:30 10/24/22 18:30 Pulse Rate 93 H Pulse Rate [Orthostatic Lying] Pulse Rate [Orthostatic Sitting] Pulse Rate [Orthostatic Standing] Respiratory Rate 28 H Blood Pressure 192/95 H 192/95 H Blood Pressure [Orthostatic Lying] Blood Pressure [Orthostatic Sitting] Blood Pressure [Orthostatic Standing] Pulse Oximetry 96 10/24/22 19:00 10/24/22 19:00 10/24/22 19:29 Pulse Rate 92 H Pulse Rate [Orthostatic Lying] Pulse Rate [Orthostatic Sitting] Pulse Rate [Orthostatic Standing] Respiratory Rate 27 H Blood Pressure 194/100 H 236/109 H Blood Pressure [Orthostatic Lying] Blood Pressure [Orthostatic Sitting] Blood Pressure [Orthostatic Standing] Pulse Oximetry 95 10/24/22 19:30 10/24/22 19:31 10/24/22 20:02 Pulse Rate 95 H Pulse Rate [Orthostatic Lying] Pulse Rate [Orthostatic Sitting] Pulse Rate [Orthostatic Standing] Respiratory Rate 14 Blood Pressure 217/83 H 229/106 H Blood Pressure [Orthostatic Lying] Blood Pressure [Orthostatic Sitting] Blood Pressure [Orthostatic Standing] Pulse Oximetry 95 10/24/22 20:02 10/24/22 20:04 10/24/22 20:05 Pulse Rate 95 H 100 H Pulse Rate [Orthostatic Lying] Pulse Rate [Orthostatic Sitting] Pulse Rate [Orthostatic Standing] Respiratory Rate 20 Blood Pressure 221/103 H Blood Pressure [Orthostatic Lying] Blood Pressure [Orthostatic Sitting] Blood Pressure [Orthostatic Standing] Pulse Oximetry 96 95 10/24/22 20:05 10/24/22 21:03 10/24/22 20:30 Pulse Rate 86 87 Pulse Rate [Orthostatic Lying] Pulse Rate [Orthostatic Sitting] Pulse Rate [Orthostatic Standing] Respiratory Rate 22 Blood Pressure 204/103 H 204/101 H Blood Pressure [Orthostatic Lying] Blood Pressure [Orthostatic Sitting] Blood Pressure [Orthostatic Standing] Pulse Oximetry 95 10/24/22 21:00 10/24/22 21:05 10/24/22 21:05 Pulse Rate 87 92 H Pulse Rate [Orthostatic Lying] Pulse Rate [Orthostatic Sitting] Pulse Rate [Orthostatic Standing] Respiratory Rate 24 29 H Blood Pressure 196/105 H Blood Pressure [Orthostatic Lying] Blood Pressure [Orthostatic Sitting] Blood Pressure [Orthostatic Standing] Pulse Oximetry 94 93 10/24/22 21:11 10/24/22 21:11 10/24/22 21:21 Pulse Rate 73 Pulse Rate [Orthostatic Lying] Pulse Rate [Orthostatic Sitting] Pulse Rate [Orthostatic Standing] Respiratory Rate 28 H Blood Pressure 170/91 H 199/93 H Blood Pressure [Orthostatic Lying] Blood Pressure [Orthostatic Sitting] Blood Pressure [Orthostatic Standing] Pulse Oximetry 90 L 10/24/22 21:30 10/24/22 21:30 Pulse Rate 75 Pulse Rate [Orthostatic Lying] Pulse Rate [Orthostatic Sitting] Pulse Rate [Orthostatic Standing] Respiratory Rate 22 Blood Pressure 184/81 H Blood Pressure [Orthostatic Lying] Blood Pressure [Orthostatic Sitting] Blood Pressure [Orthostatic Standing] Pulse Oximetry 94 MDM - Weakness Lab Data 10/24/22 16:35 10/24/22 16:35 Labs: Lab Results 10/24/22 10/24/22 10/24/22 Range/Units 16:35 16:35 16:35 WBC 5.0 (4.5-11.0) X10^3/uL RBC 4.27 (4.0-5.2) X10^6/uL Hgb 13.0 (12.0-16.0) g/dL Hct 38.3 (36-46) % MCV 89.6 (80-100) fL MCH 30.4 (26-34) PG MCHC 33.9 (30-36) % RDW 13.3 (11.6-14.8) % Plt Count 359 (150-400) X10^3/uL Neut % (Auto) 62.6 (50-75) % Lymph % (Auto) 24.3 L (25-40) % Eaton % (Auto) 9.9 (3-14) % Eos % (Auto) 2.1 (2-4) % Baso % (Auto) 1.1 (0-2) % Neut # (Auto) 3100 (8195-4130) /uL Lymph # (Auto) 1200 (4364-9914) /uL Eaton # (Auto) 500 (0-900) /uL Eos # (Auto) 100 (0-450) /uL Baso # (Auto) 100 (0-100) /uL PT 11.4 (10.1-12.7) SECONDS INR 1.0 (0.9-1.3) APTT 32 (26-36) SECONDS Sodium 131 L (137-145) mmol/L Potassium 4.2 (3.4-5.1) mmol/L Chloride 99 (98-107) mmol/L Carbon Dioxide 27 (22-32) mmol/L BUN 10 (7-17) mg/dL Creatinine 0.70 (0.52-1.04) mg/dL Estimated GFR > 60 (>60) mL/min BUN/Creatinine Ratio 14.3 (6-22) Glucose 101 (80-110) mg/dL Calcium 9.0 (8.4-10.2) mg/dL Magnesium 1.9 (1.6-2.3) mg/dL Total Bilirubin 0.7 (0.2-1.3) mg/dL AST 25 (14-36) IU/L ALT 15 (<35) IU/L Alkaline Phosphatase 75 (38-126) U/L Total Creatine Kinase 54 (30-135) U/L Troponin I < 0.012 (0.01-0.034) ng/mL NT-Pro-B Natriuret Pep (<450) pg/mL Total Protein 7.2 (6.3-8.2) g/dL Albumin 3.9 (3.5-5.0) g/dL Globulin 3.3 (1.7-4.1) g/dL Albumin/Globulin Ratio 1.2 (1.0-2.8) Lipase 54 (23-300) U/L Urine Color Urine Appearance Urine pH (4.5-8.0) Ur Specific [place] (1.000-1.035) Urine Protein (Negative) Urine Glucose (UA) (Negative) g/dL Urine Ketones (NEGATIVE) Urine Occult Blood (Negative) Urine Nitrate (Negative) Urine Bilirubin (NEGATIVE) Urine Urobilinogen (0.2) E.U./dL Ur Leukocyte Esterase (NEGATIVE) Urine RBC (0-5/HPF) Urine WBC (0-5/HPF) Ur Squamous Epith Cells (0-5/HPF) Amorphous Sediment Urine Bacteria (None) Ur Culture Indicated? 10/24/22 10/24/22 Range/Units 16:35 21:28 WBC (4.5-11.0) X10^3/uL RBC (4.0-5.2) X10^6/uL Hgb (12.0-16.0) g/dL Hct (36-46) % MCV (80-100) fL MCH (26-34) PG MCHC (30-36) % RDW (11.6-14.8) % Plt Count (150-400) X10^3/uL Neut % (Auto) (50-75) % Lymph % (Auto) (25-40) % Eaton % (Auto) (3-14) % Eos % (Auto) (2-4) % Baso % (Auto) (0-2) % Neut # (Auto) (4559-8446) /uL Lymph # (Auto) (1910-1605) /uL Eaton # (Auto) (0-900) /uL Eos # (Auto) (0-450) /uL Baso # (Auto) (0-100) /uL PT (10.1-12.7) SECONDS INR (0.9-1.3) APTT (26-36) SECONDS Sodium (137-145) mmol/L Potassium (3.4-5.1) mmol/L Chloride (98-107) mmol/L Carbon Dioxide (22-32) mmol/L BUN (7-17) mg/dL Creatinine (0.52-1.04) mg/dL Estimated GFR (>60) mL/min BUN/Creatinine Ratio (6-22) Glucose (80-110) mg/dL Calcium (8.4-10.2) mg/dL Magnesium (1.6-2.3) mg/dL Total Bilirubin (0.2-1.3) mg/dL AST (14-36) IU/L ALT (<35) IU/L Alkaline Phosphatase (38-126) U/L Total Creatine Kinase (30-135) U/L Troponin I (0.01-0.034) ng/mL NT-Pro-B Natriuret Pep 124 (<450) pg/mL Total Protein (6.3-8.2) g/dL Albumin (3.5-5.0) g/dL Globulin (1.7-4.1) g/dL Albumin/Globulin Ratio (1.0-2.8) Lipase (23-300) U/L Urine Color Yellow Urine Appearance Clear Urine pH 5.5 (4.5-8.0) Ur Specific [place] 1.010 (1.000-1.035) Urine Protein Negative (Negative) Urine Glucose (UA) Negative (Negative) g/dL Urine Ketones Negative (NEGATIVE) Urine Occult Blood 3+ H (Negative) Urine Nitrate Negative (Negative) Urine Bilirubin Negative (NEGATIVE) Urine Urobilinogen 0.2 (0.2) E.U./dL Ur Leukocyte Esterase 1+ H (NEGATIVE) Urine RBC 5-10/hpf H (0-5/HPF) Urine WBC 5-10/hpf H (0-5/HPF) Ur Squamous Epith Cells 5-10 /hpf H (0-5/HPF) Amorphous Sediment 1+ Urine Bacteria Occasional (0-1) (None) Ur Culture Indicated? Specimen cultured Urine Dip Bedside Urine Glucose Negative Bedside Urine Bilirubin - Negative Bedside Urine Ketone - Negative Urine Specific [place] 1.020 Bedside Urine Occult Blood +++ Bedside Urine pH 6.0 Bedside Urine Protein - Negative Bedside Urine Urobilinogen - Negative Bedside Urine Nitrite - Negative Bedside Urine Leukocytes +/- 15 Esterase Imaging Data Chest x-ray: Radiologist Impression: PROCEDURE:? XR CHEST 1V ? INDICATIONS:? chest pain ? TECHNIQUE:? One view of the chest was acquired.? ? COMPARISON:? [facility], , XR CHEST 2V, 08/22/2021, 13:15.? [facility], , XR CHEST 1V, 09/21/2019, 16:59.? [facility], , XR CHEST 1V, 10/01/2017, 18:56. ? FINDINGS:? ? Surgical changes and devices:? None.? ? Lungs and pleura:? Lungs are clear.? No pleural effusions or pneumothorax.? ? Mediastinum:? Mediastinal contours appear normal.? Heart size is normal.? Hiatal hernia again noted.? ? Bones and chest wall:? No suspicious bony lesions.? Overlying soft tissues appear unremarkable.? ? IMPRESSION:? No acute cardiopulmonary abnormality.? Stable hiatal hernia. ? Approved by: Kurt Sutherland M.D. on 10/24/2022 at 17:36? CT scan - head: Radiologist Impression: PROCEDURE:? CT HEAD/BRAIN WO CON ? INDICATIONS:? dizzy and HTN ? TECHNIQUE:? Noncontrast 4.5 mm thick angled axial sections acquired from the foramen magnum to the vertex, with coronal and sagittal reformats.? For radiation dose reduction, the following was used:? automated exposure control, adjustment of mA and/or kV according to patient size.? ? COMPARISON:? [facility], CT, HEAD WITHOUT CONTRAST, 03/18/2016, 19:17. ? FINDINGS:? Image quality:? Excellent.? ? CSF spaces:? Basal cisterns are patent.? No extra-axial fluid collections.? There is mild cerebral volume loss, with resultant ventricular and sulcal prominence.? ? Brain:? No intracranial hemorrhage, mass, or mass effect.? There are subcortical, periventricular and deep white matter hypodensities consistent with mild chronic small vessel ischemic changes.? The andrade-white matter junction appears preserved.? There is intracranial internal carotid artery atherosclerosis.? ? Skull and face:? Calvarium and visualized facial bones appear intact, without suspicious lesions.? ? Sinuses:? Visualized sinuses demonstrate small air-fluid levels within the bilateral sphenoid sinuses suggestive of acute sinusitis.? Mastoid air cells are clear. ? IMPRESSION:? ? 1. No acute intracranial abnormality. ? 2. Mild cerebral volume loss and chronic white matter small vessel ischemic changes. ? ? ? Dictated by: Isaac Quijano M.D. on 10/24/2022 at 21:03 ? ? Approved by: Isaac Quijano M.D. on 10/24/2022 at 21:04 ? ECG Data Interpretation: Normal sinus rhythm rate 104 OR interval 164 QRS [address] changes MDM Narrative Medical decision making narrative: Patient 87-year-old female history of hypertension, dizziness presenting today with vague symptoms of dizziness and shortness of breath. She is noted to have elevated blood pressure in the ED. She does not have any signs of end-organ damage. She is not really requiring any oxygen she is no obvious sign of respiratory distress or conversational dyspnea. X-ray is clear. BNP is negative no sign of congestive heart failure or pneumonia. She is not had any recent travel. She is not had any fever or chills she does have some blood in her urine but she is not having any painful or frequent urination. She has no focal deficits NIH stroke scale [address] is negative. She is given 5 mg of labetalol for blood pressure which she she responds to very quickly. She ambulated with pulse oximeter O2 does drop to 91% but she is asymptomatic and quickly goes up to 95 in his able to have a conversation. I do not appreciate any significant conversational dyspnea or hypoxia. She is not having any obvious vertigo. No nausea or vomiting. Blood work really does not show any clinical significant abnormality. At this time I suspect maybe blood pressure is causing some of her symptoms sick she has had some elevated blood pressures in the past. Recommend monitoring at home and following up with PCP at this point. Discharge Plan Departure Patient Disposition: Home Clinical Impression: Hypertension Instructions: High Blood Pressure Activity Restrictions/Additional Instructions: water, coffee, water, coffee, water, coffee *You have been diagnosed with high blood pressure *What to do: Please monitor your blood pressure 1 to 2 times daily record it and talk with PCP *Continue to take medications as directed *Follow up with your primary care provider in 2-3 days or call [phone] *Return to ER if you should have increasing dizziness shortness of breath falling down, BP >200/110 with symptoms or longer than 2 hours [or] any new, worsening or concerning symptoms Prescriptions: No Action ciclopirox [Ciclodan] 8 % solution 1 applic topical BEDTIME Qty: 6.6 0RF fluoxetine 20 mg capsule See Rx Instructions .ROUTE .COMPLEX Qty: 90 3RF Dose Instruction: TAKE 1 CAPSULE BY MOUTH DAILY Rx Instructions: TAKE 1 CAPSULE BY MOUTH DAILY losartan 50 mg tablet See Rx Instructions .ROUTE .COMPLEX Qty: 180 1RF Dose Instruction: TAKE 2 TABLETS BY MOUTH EVERY DAY Rx Instructions: TAKE 2 TABLETS BY MOUTH EVERY DAY lovastatin 20 mg tablet See Rx Instructions .ROUTE .COMPLEX Qty: 90 1RF Dose Instruction: TAKE 1 TABLET BY MOUTH EVERY NIGHT AT BEDTIME Rx Instructions: TAKE 1 TABLET BY MOUTH EVERY NIGHT AT BEDTIME clopidogrel 75 mg tablet See Rx Instructions .ROUTE .COMPLEX Qty: 90 3RF Dose Instruction: TAKE 1 TABLET BY MOUTH DAILY Rx Instructions: TAKE 1 TABLET BY MOUTH DAILY Referrals: Klever Hernández MD [Primary Care Provider] - Stand Alone Forms: Patient Portal/API
--- NOTE | 2022-10-24 19:44 | DI.CT.S_ITS ---
PROCEDURE: CT HEAD/BRAIN WO CON INDICATIONS: dizzy and HTN TECHNIQUE: Noncontrast 4.5 mm thick angled axial sections acquired from the foramen magnum to the vertex, with coronal and sagittal reformats. For radiation dose reduction, the following was used: automated exposure control, adjustment of mA and/or kV according to patient size. COMPARISON: [facility], CT, HEAD WITHOUT CONTRAST, 03/18/2016, 19:17. FINDINGS: Image quality: Excellent. CSF spaces: Basal cisterns are patent. No extra-axial fluid collections. There is mild cerebral volume loss, with resultant ventricular and sulcal prominence. Brain: No intracranial hemorrhage, mass, or mass effect. There are subcortical, periventricular and deep white matter hypodensities consistent with mild chronic small vessel ischemic changes. The andrade-white matter junction appears preserved. There is intracranial internal carotid artery atherosclerosis. Skull and face: Calvarium and visualized facial bones appear intact, without suspicious lesions. Sinuses: Visualized sinuses demonstrate small air-fluid levels within the bilateral sphenoid sinuses suggestive of acute sinusitis. Mastoid air cells are clear. IMPRESSION: 1. No acute intracranial abnormality. 2. Mild cerebral volume loss and chronic white matter small vessel ischemic changes. Dictated by: Isaac Quijano M.D. on 10/24/2022 at 21:03 Approved by: Isaac Quijano M.D. on 10/24/2022 at 21:04
[2022-10-24 20:06] LABS: NT-proBNP (BNP-Adult 18+) 124 pg/mL (<450)
[2022-10-24] MEDS: LABETALOL 20 MG/4 ML SYRINGE 5 MG IV (21:03)
[2022-10-24 21:39] LABS: Appearance Urine UA CLEAR; Bilirubin Urine UA NEGATIVE (NEGATIVE); Color Urine UA YELLOW; Glucose Urine UA NEGATIVE (Negative); Ketones Urine UA NEGATIVE (NEGATIVE); Leukocyte Esterase Urine UA 1+ (NEGATIVE); Nitrite Urine UA NEGATIVE (Negative); Occult Blood Urine UA 3+ (Negative); Protein Urine UA NEGATIVE (Negative); Urobilinogen Urine UA 0.2 E.U./dL (0.2)
[2022-10-24 21:42] LABS: pH Urine UA 5.5 (4.5-8.0)
[2022-10-24 21:48] LABS: Amorphous Sediment Urine 1+; Bacteria Urine Occasional (0-1); Culture Indicated Urine Specimen Cultured; RBC Urine 5-10/HPF (0-5/HPF); Squamous Epithelial Cell Urine 5-10 /HPF (0-5/HPF); WBC Urine 5-10/HPF (0-5/HPF)
== END 2022-10-24 21:56 | disposition home or self-care (01) ==
PROVIDERS: Emergency Medicine; Emergency Provider Emergency Medicine; PCP Family Medicine
DX: I10 Essential (primary) hypertension (principal); R07.9 Chest pain, unspecified
CPT/HCPCS: 70450; 71045; 80053; 81001; 81003; 82550; 83690; 83735; 83880; 84484; 85025; 85610; 85730; 87077; 87086; 87186; 93005; 96374; 99283; 99284

== ENCOUNTER 2022-10-27 21:30 | Emergency (ER) | payer OTHER, SELFPAY ==
[2022-10-27] VITALS (13 sets, daily range): BP systolic 139–227; BP diastolic 82–120; PULSE 83–107; RESP 20–38; TEMP 37.2; O2SAT 93–98; BMI 26.6
--- NOTE | 2022-10-27 21:48 | DI.RAD.S_ITS ---
PROCEDURE: XR CHEST 1V INDICATIONS: chest pain TECHNIQUE: One view of the chest was acquired. COMPARISON: [facility], CR, XR CHEST 1V, 10/24/2022, 17:08. FINDINGS: Surgical changes and devices: None. Lungs and pleura: There is mild atelectasis medially in the left lung base again noted. No acute consolidation. No pleural effusions or pneumothorax. Mediastinum: Mediastinal contours appear unchanged with a large hiatal hernia redemonstrated. Heart size is normal. Bones and chest wall: No suspicious bony lesions. Overlying soft tissues appear unremarkable. IMPRESSION: 1. No acute cardiopulmonary disease. 2. Large hiatal hernia redemonstrated. Dictated by: Isaac Quijano M.D. on 10/27/2022 at 23:10 Approved by: Isaac Quijano M.D. on 10/27/2022 at 23:11
[2022-10-27] MEDS: ASPIRIN 81 MG CHEW TAB 324 MG PO (21:55)
[2022-10-27 22:18] LABS: INR 0.9 (0.9-1.3); Prothrombin Time 10.6 SECONDS (10.1-12.7)
[2022-10-27 22:21] LABS: PTT Partial Thromboplastin Tim 32 SECONDS (26-36)
[2022-10-27 22:23] LABS: Alanine Aminotransferase 16 IU/L (<35); Albumin 4.3 g/dL (3.5-5.0); Albumin Globulin Ratio 1.3 (1.0-2.8); Alkaline Phosphatase 89 U/L (38-126); Aspartate Aminotransferase 27 IU/L (14-36); BUN Creatinine Ratio 17.5 (6-22); Bilirubin Total 0.8 mg/dL (0.2-1.3); Blood Urea Nitrogen 11 mg/dL (7-17); Calcium 9.2 mg/dL (8.4-10.2); Carbon Dioxide 26 mmol/L (22-32); Chloride 93 mmol/L (98-107); Creatine Kinase 51 U/L (30-135); Estimated Glomerular Filt Rate > 60 mL/min (>60); Globulin 3.4 g/dL (1.7-4.1); Glucose 100 mg/dL (80-110); Lipase 62 U/L (23-300); Magnesium 1.7 mg/dL (1.6-2.3); Potassium 4.3 mmol/L (3.4-5.1); Sodium 126 mmol/L (137-145); Total Protein 7.7 g/dL (6.3-8.2)
[2022-10-27 22:24] LABS: Add Manual Diff / Slide Review NO; Basophils Absolute Auto 0 /uL (0-100); Basophils Percent Auto 0.7 % (0-2); Eosinophils Absolute Auto 200 /uL (0-450); Eosinophils Percent Auto 2.6 % (2-4); HEMOLYSIS 74 (0-50); Hematocrit 40.5 % (36-46); Hemoglobin 13.9 g/dL (12.0-16.0); Lymphocytes Absolute Auto 1800 /uL (1100-4500); Lymphocytes Percent Auto 27.7 % (25-40); Mean Corpuscular HGB Conc 34.2 % (30-36); Mean Corpuscular Hemoglobin 30.8 PG (26-34); Monocytes Absolute Auto 700 /uL (0-900); Monocytes Percent Auto 10.7 % (3-14); Neutrophils Absolute Auto 3700 /uL (1500-7000); Neutrophils Percent Auto 58.3 % (50-75); Platelet Count 366 X10^3/uL (150-400); Red Cell Distribution Width 13.1 % (11.6-14.8); White Blood Cell Count 6.4 X10^3/uL (4.5-11.0)
[2022-10-27 22:34] LABS: Troponin I < 0.012 ng/mL (0.01-0.034)
--- NOTE | 2022-10-27 23:35 | ED_ITS ---
HPI - General Adult General Chief complaint: Hypertension Stated complaint: High BP Time Seen by Provider: 10/27/22 23:35 Source: patient and family (daughter) Mode of arrival: Family Vehicle Limitations: no limitations History of Present Illness HPI narrative: This is a pleasant 87-year-old female with history of stroke, hypertension, dyslipidemia and depression, prior breast cancer with mastectomy and chemother apy on Plavix daily who presents with complaint of elevated blood pressure. She states she would coffee at 4:00 p.m. today since then she is felt jittery and like she can not sleep. She describes little bit of dizziness. She denies any syncope. Patient states they checked her blood pressure at home several times and was elevated. She would some similar issues and was seen earlier in the week. Sounds like she had a urine culture that was positive and had a prescription called in but patient and family did not get the voicemail have not started the antibiotic. She denies any headache, no vision changes, no chest pain or pressure no active shortness of breath. No fevers or chills. No nausea or vomiting. She is had normal bowel movements she denies any dysuria urgency or frequency. She is been walking normally without any gait issues, she does not appreciate any numbness, tingling or weakness. She does have macular degeneration so does have vision issues but have not changed significantly. She states a week ago she got stung by worn it is 4 times, patient was treated and then 2 days later got stung again but has not had any worsening issues. She has not had any recent medication changes. Patient states surgeries include a right mastectomy she had chemo but no radiation. No known drug allergies. No tobacco, alcohol or illicit. Dr. Hernández is her primary care. Related Data Previous Rx's Medication Instructions Recorded ciclopirox 8 % topical solution 1 applic topical BEDTIME #6.6 mL 01/17/22 (Ciclodan) fluoxetine 20 mg capsule See Rx Instructions .Route 03/07/22 .COMPLEX #90 caps losartan 50 mg tablet See Rx Instructions .Route 04/03/22 .COMPLEX #180 tabs lovastatin 20 mg tablet See Rx Instructions .Route 04/03/22 .COMPLEX #90 tabs clopidogrel 75 mg tablet See Rx Instructions .Route 05/30/22 .COMPLEX #90 tabs cephalexin 500 mg capsule 500 mg PO Q6H 7 days #28 caps 10/27/22 Allergies Allergy/AdvReac Type Severity Reaction Status Date / Time No Known Drug Allergies Allergy Verified 10/27/22 21:51 Review of Systems Review of Systems ROS Unobtainable: All systems reviewed & are unremarkable except as noted in HPI and below Patient History Medical History Ankle pain (2014) Anxiety (2004) Back pain Cerebrovascular accident (CVA) due to stenosis of right middle cerebral artery (04/09/16) Constipation (03/08/15) CVA (cerebral vascular accident) Depression, major Dizziness Elevated random blood glucose level Essential hypertension Essential hypertension (11/23/02) GERD (gastroesophageal reflux disease) Hearing loss (2012) History of breast cancer (1989) History of colon polyps Hyperlipidemia (10/13/03) Hyperlipidemia, unspecified Mumps (1974) Ovarian cyst (1964) Rheumatoid arthritis (2001) RLS (restless legs syndrome) (2009) Sleep apnea (1999) Surgical History Anesthesia History of bilateral salpingo-oophorectomy (BSO) History of left oophorectomy History of right mastectomy (1989) Status post surgery (01/09/09) Family History Sister CVA (cerebral vascular accident) Father No problems noted. Mother Ruptured appendix Social History marital status: Smoking Status: Never smoker alcohol intake: current substance use type: does not use Smoking Status: Never smoker alcohol intake frequency: 0-2 drinks per day Substance Use Type: does not use Exam Narrative Exam Narrative: GEN: well nourished, well appearing elderly, alert and oriented x 3, patient appears to be in no acute distress. Patient is hard of hearing but otherwise able to answer questions easily. HEENT: Atraumatic, pupils are equal round reactive to light, extraocular movements are intact, nares are clear, throat is clear without any exudates, erythema, tonsillar enlargement or uvular deviation HEART: Regular rate and rhythm without murmur, clicks, rubs. No carotid bruits, pulses are equal in upper and lower extremities LUNGS:Lungs clear to auscultation, no wheezes, rales, crackles, chest moves symmetrically ABD:bowel sounds normal, soft, non-tender, no guarding, rebound, rigidity, no masses noted, no hepatosplenomegaly :No CVA tenderness MSCL: Non-tender, no muscle atrophy, muscles strength 5/5 upper and lower extremities, full range of motion, normal gait NEURO:CN 2-12 intact, sensation normal SKIN: No rash, erythema or other skin changes Initial Vital Signs Initial Vital Signs: Vital Signs Pulse Rate 104 H 10/27/22 21:44 Respiratory Rate 32 H 10/27/22 21:44 Pulse Oximetry 98 10/27/22 21:44 Course Orders Ordered: ED Orders 10/27/22 21:48 XR chest 1V Stat EKG-12 Lead Stat 10/27/22 22:00 Complete Blood Count AUTO DIFF Stat Comprehensive Metabolic Panel Stat Lipase Stat Magnesium Stat PTT Partial Thromboplastin Logan Stat Prothrombin Time INR Stat Troponin & CK Cardiac Panel Stat Discontinued Medications Aspirin (Aspirin 81 Mg Chew Tab) 324 mg PO NOW ONE Stop: 10/27/22 21:49 Last Admin: 10/27/22 21:55 Dose: 324 mg Documented By: DEMARIO Cephalexin HCl (Cephalexin 250 Mg Capsule) 500 mg PO NOW ONE Stop: 10/27/22 23:52 Last Admin: 10/27/22 23:59 Dose: 500 mg Documented By: DEMARIO Vital Signs Vital signs: Vital Signs - 8 hr 10/27/22 21:48 10/27/22 21:44 10/27/22 21:54 Temperature 99.0 F Pulse Rate 104 H 104 H Respiratory Rate 20 32 H Blood Pressure 225/112 H 204/101 H Pulse Oximetry 98 98 Oxygen Delivery Method Room Air 10/27/22 21:54 10/27/22 22:00 10/27/22 22:03 Temperature Pulse Rate 105 H 103 H 107 H Respiratory Rate 35 H 34 H 27 H Blood Pressure Pulse Oximetry 97 95 97 Oxygen Delivery Method 10/27/22 22:03 10/27/22 22:15 10/27/22 22:15 Temperature Pulse Rate 100 H Respiratory Rate 30 H Blood Pressure 227/120 H 181/93 H Pulse Oximetry 97 Oxygen Delivery Method 10/27/22 22:30 10/27/22 22:30 10/27/22 22:45 Temperature Pulse Rate 97 H Respiratory Rate 38 H Blood Pressure 173/95 H 166/90 H Pulse Oximetry 96 Oxygen Delivery Method 10/27/22 22:45 10/27/22 23:00 10/27/22 23:00 Temperature Pulse Rate 97 H 93 H Respiratory Rate 24 25 H Blood Pressure 139/82 Pulse Oximetry 96 97 Oxygen Delivery Method 10/27/22 23:15 10/27/22 23:15 10/27/22 23:30 Temperature Pulse Rate 83 Respiratory Rate 29 H Blood Pressure 151/91 H 153/90 H Pulse Oximetry 95 Oxygen Delivery Method 10/27/22 23:30 10/27/22 23:45 10/27/22 23:45 Temperature Pulse Rate 88 97 H Respiratory Rate 31 H 31 H Blood Pressure 210/97 H Pulse Oximetry 97 93 Oxygen Delivery Method 10/27/22 23:59 10/28/22 00:00 Temperature Pulse Rate 99 H Respiratory Rate Blood Pressure 187/108 H Pulse Oximetry 96 Oxygen Delivery Method Medical Decision Making Lab Data 10/27/22 22:00 10/27/22 22:00 Labs: Lab Results 10/27/22 10/27/22 10/27/22 Range/Units 22:00 22:00 22:00 WBC 6.4 (4.5-11.0) X10^3/uL RBC 4.50 (4.0-5.2) X10^6/uL Hgb 13.9 (12.0-16.0) g/dL Hct 40.5 (36-46) % MCV 90.0 (80-100) fL MCH 30.8 (26-34) PG MCHC 34.2 (30-36) % RDW 13.1 (11.6-14.8) % Plt Count 366 (150-400) X10^3/uL Neut % (Auto) 58.3 (50-75) % Lymph % (Auto) 27.7 (25-40) % Converse % (Auto) 10.7 (3-14) % Eos % (Auto) 2.6 (2-4) % Baso % (Auto) 0.7 (0-2) % Neut # (Auto) 3700 (0171-9344) /uL Lymph # (Auto) 1800 (8428-2942) /uL Converse # (Auto) 700 (0-900) /uL Eos # (Auto) 200 (0-450) /uL Baso # (Auto) 0 (0-100) /uL PT 10.6 (10.1-12.7) SECONDS INR 0.9 (0.9-1.3) APTT 32 (26-36) SECONDS Sodium 126 L (137-145) mmol/L Potassium 4.3 (3.4-5.1) mmol/L Chloride 93 L (98-107) mmol/L Carbon Dioxide 26 (22-32) mmol/L BUN 11 (7-17) mg/dL Creatinine 0.63 (0.52-1.04) mg/dL Estimated GFR > 60 (>60) mL/min BUN/Creatinine Ratio 17.5 (6-22) Glucose 100 (80-110) mg/dL Calcium 9.2 (8.4-10.2) mg/dL Magnesium 1.7 (1.6-2.3) mg/dL Total Bilirubin 0.8 (0.2-1.3) mg/dL AST 27 (14-36) IU/L ALT 16 (<35) IU/L Alkaline Phosphatase 89 (38-126) U/L Total Creatine Kinase 51 (30-135) U/L Troponin I < 0.012 (0.01-0.034) ng/mL Total Protein 7.7 (6.3-8.2) g/dL Albumin 4.3 (3.5-5.0) g/dL Globulin 3.4 (1.7-4.1) g/dL Albumin/Globulin Ratio 1.3 (1.0-2.8) Lipase 62 (23-300) U/L Imaging Data Chest x-ray: Radiologist's Impression: Close Chest X-Ray (Signed) Isaac Quijano - 10/27/[address] (Signed) Isaac Quijano - 10/24/22 Chest X-Ray (Signed) Kurt Sutherland - 10/24/22 Chest X-Ray (Signed) Cristina Vela - 08/22/21 Chest X-Ray (Signed) Zack Grace - 09/21/19 Pelvis Ultrasound (Signed) Guillaume Sun - 03/17/18 Abdomen Ultrasound (Signed) Carlos Montoya - 03/17/18 Chest X-Ray (Signed) Garrett Murphy - 10/01/17 Launch?Image [address] [address] XRay Report Signed Patient: Karlee Noguera MR#: [id number] : 1935 Acct:[id number] Age/Sex: 87 / F Date of Service: 10/27/22 Loc: ED Accession Number: [id number] ?? Procedure: XR chest 1V Ordering Provider: Azul Farmer D.O. PROCEDURE:? XR CHEST 1V ? INDICATIONS:? chest pain ? TECHNIQUE:? One view of the chest was acquired.? ? COMPARISON:? [facility], CR, XR CHEST 1V, 10/24/2022, 17:08. ? FINDINGS:? ? Surgical changes and devices:? None.? ? Lungs and pleura:? There is mild atelectasis medially in the left lung base a gain noted.? No acute consolidation.? No pleural effusions or pneumothorax.? ? Mediastinum:? Mediastinal contours appear unchanged with a large hiatal hernia redemonstrated.? Heart size is normal.? ? Bones and chest wall:? No suspicious bony lesions.? Overlying soft tissues appear unremarkable.? ? IMPRESSION:? ? 1. No acute cardiopulmonary disease. ? 2. Large hiatal hernia redemonstrated.? ? ? Dictated by: Isaac Quijano M.D. on 10/27/2022 at 23:10 ? ? Approved by: Isaac Quijano M.D. on 10/27/2022 at 23:11?? ECG Data Attestation: I personally reviewed and interpreted this ECG as follows: Interpretation: Sinus tachycardia rate of 104 CA 178 QRS 84 and QTC 452. No acute ST elevation depression noted. Nonspecific change. MDM Narrative Medical decision making narrative: 87-year-old female that is describes feeling jittery, triage note states patient wanted to pass out but she denies any syncope or near-syncope she is had trouble sleeping and felt a little lightheaded but denies any vertigo symptoms no other red flag symptoms it was noted she had Klebsiella positive UTI [id number] bacteria she does not appreciate a lot of urinary symptoms but had Keflex called in she had not started that yet blood pressure has been elevated but is labile sometimes as low as 150 sometimes elevated 200 range intermittently during her stay. Patient's labs show a CBC with a white count of 6.4 hemoglobin of 13 crit of 40, platelets 366. Sodium is 126 this is trending down words from her visit several days ago and compared to July. Potassium 4.3 with normal renal function and other LFTs and negative troponin. Patient was initially a little bit tachycardic but resolved during stay. No acute EKG changes. Patient had chest x-ray shows large hiatal hernia, patient had a head CT 3 days ago so this was not repeated as patient has not had any major new changes compared to when she was seen several days ago. Discussed with patient and family she would rather return home and be admitted for hyponatremia. She does not have any major acute neurologic changes. I spoke with the admitting service for her primary care provider and plan for follow-up later today for repeat check of sodium and re- evaluation. Patient is quite happy with this plan and her daughters agreeable as well. She did receive a dose of Keflex here she did have a recent positive urine culture. 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 Spoke with Dr. Bettencourt, covering for Dr. Hernández. Patient has felt jittery and unwell but overall has reassuring exam her blood pressure has been labile she is been 200 but on next check will be 150 and then be 180. Patient has a normal CBC, sodium shows 126 is trending downward since early in the week. Normal renal function. Negative troponin, LFTs, patient had urine culture that showed [id number] Klebsiella had Keflex called in but had not gotten that voicemail. Was given 1st dose here this evening. Patient is otherwise well-appearing no other acute neurologic changes. She does have somewhat labile blood pressure but would not start new medications at this time. I spoke with her primary care service patient prefers to return home rather than be kept overnight for adm ission. They will see her tomorrow on recheck and follow her sodium closely. Discussed with patient and family return precautions. First dose of antibiotic given here and patient has a prescription at [facility] waiting for her in the morning. Discharge Plan Departure Patient Disposition: Home Clinical Impression: Hyponatremia, Acute UTI Instructions: DI for Hyponatremia Activity Restrictions/Additional Instructions: Follow up with Dr. Hernández or 1 of his partners tomorrow. Call 1st thing in the morning for an appointment. I spoke with Dr. Bettencourt over the phone this evening so they should be aware of you. Your sodium is low today and probably causing some of your symptoms should be r echecked in the next 24 hours. Your visit the other day did show a positive urine culture please start the antibiotics that were prescribed. This was sent to [facility] pharmacy. You received your 1st dose here tonight. Please return for new or worsening symptoms, altered mental status, confusion, f aroldo, new chest pain or shortness of breath, abdominal pain, difficulty with ambulation, new numbness tingling or weakness, vomiting or other new or concerning changes. Prescriptions: No Action ciclopirox [Ciclodan] 8 % solution 1 applic topical BEDTIME Qty: 6.6 0RF fluoxetine 20 mg capsule See Rx Instructions .ROUTE .COMPLEX Qty: 90 3RF Dose Instruction: TAKE 1 CAPSULE BY MOUTH DAILY Rx Instructions: TAKE 1 CAPSULE BY MOUTH DAILY losartan 50 mg tablet See Rx Instructions .ROUTE .COMPLEX Qty: 180 1RF Dose Instruction: TAKE 2 TABLETS BY MOUTH EVERY DAY Rx Instructions: TAKE 2 TABLETS BY MOUTH EVERY DAY lovastatin 20 mg tablet See Rx Instructions .ROUTE .COMPLEX Qty: 90 1RF Dose Instruction: TAKE 1 TABLET BY MOUTH EVERY NIGHT AT BEDTIME Rx Instructions: TAKE 1 TABLET BY MOUTH EVERY NIGHT AT BEDTIME clopidogrel 75 mg tablet See Rx Instructions .ROUTE .COMPLEX Qty: 90 3RF Dose Instruction: TAKE 1 TABLET BY MOUTH DAILY Rx Instructions: TAKE 1 TABLET BY MOUTH DAILY cephalexin 500 mg capsule 500 mg PO Q6H 7 Days Qty: 28 0RF Referrals: Klever Hernández MD [Primary Care Provider] - Stand Alone Forms: Patient Portal/API
[2022-10-27] MEDS: cephALEXin 250 MG CAPSULE 500 MG PO (23:59)
[2022-10-28] VITALS: BP 187/108
== END 2022-10-28 00:34 | disposition home or self-care (01) ==
PROVIDERS: Emergency Provider Emergency Medicine; PCP Family Medicine
DX: I10 Essential (primary) hypertension (principal); E87.1 Hypo-osmolality and hyponatremia; N39.0 Urinary tract infection, site not specified; R00.0 Tachycardia, unspecified
CPT/HCPCS: 36415; 71045; 80053; 82550; 83690; 83735; 84484; 85025; 85610; 85730; 93005; 93010; 99284

== ENCOUNTER → 2022-10-30 16:18 | Outpatient (CLI) | payer OTHER, SELFPAY ==
[2022-10-30 16:53] LABS: Alanine Aminotransferase 16 IU/L (<35); Albumin 4.3 g/dL (3.5-5.0); Albumin Globulin Ratio 1.3 (1.0-2.8); Alkaline Phosphatase 77 U/L (38-126); Aspartate Aminotransferase 25 IU/L (14-36); BUN Creatinine Ratio 21.3 (6-22); Bilirubin Total 0.8 mg/dL (0.2-1.3); Blood Urea Nitrogen 16 mg/dL (7-17); Calcium 9.6 mg/dL (8.4-10.2); Carbon Dioxide 26 mmol/L (22-32); Chloride 98 mmol/L (98-107); Estimated Glomerular Filt Rate > 60 mL/min (>60); Globulin 3.2 g/dL (1.7-4.1); Glucose 97 mg/dL (80-110); HEMOLYSIS < 15 (0-50); Potassium 4.3 mmol/L (3.4-5.1); Sodium 131 mmol/L (137-145); Total Protein 7.5 g/dL (6.3-8.2)
== END ==
PROVIDERS: PCP Family Medicine; Visit Provider Physician Assistant
DX: E87.1 Hypo-osmolality and hyponatremia (principal); I10 Essential (primary) hypertension; N39.0 Urinary tract infection, site not specified
CPT/HCPCS: 80053

== ENCOUNTER → 2022-12-16 16:57 | Outpatient (CLI) | payer OTHER, SELFPAY ==
--- NOTE | 2022-12-16 16:58 | DI.RAD.S_ITS ---
PROCEDURE: XR LUMBAR SPINE MIN 4V INDICATIONS: lbp TECHNIQUE: 3 views of the lumbar spine were acquired. COMPARISON: Located Within [facility], , L-SPINE 2-3 VIEWS, 01/20/2016, 3:40. Located Within [facility], , L-SPINE 2-3 VIEWS, 10/27/2013, 12:34. FINDINGS: Bones: Five nonrib-bearing vertebrae are present. There is generalized osteopenia. Overlying bowel gas and soft tissues mild obscure bony detail. Mild chronic compression deformity at the L1 vertebral body. Suspected compression deformity T12, which may be new when compared to the prior radiographs. Mild levoconvex curvature of the lumbar spine. Grade 1 retrolisthesis at L1-2. Multilevel disc space narrowing degenerative endplate changes are present. Multilevel facet hypertrophy. No suspicious bony lesions. Soft tissues: Overlying bowel gas pattern is normal. No suspicious soft tissue calcifications. IMPRESSION: 1. Generalized osteopenia. Chronic vertebral compression fracture at L1 appears unchanged. Suspected mild T12 compression fracture may be new when compared to the exam from 01/20/2016. MRI could be performed to evaluate for acute edema if indicated clinically. 2. Moderate multilevel spondylosis. Levoconvex curvature of the lumbar spine. Approved by: Kurt Sutherland M.D. on 12/17/2022 at 10:32
== END ==
PROVIDERS: PCP Family Medicine; Referring Provider Family Medicine; Visit Provider Family Medicine
DX: M47.816 Spondylosis without myelopathy or radiculopathy, lumbar region (principal); M85.88 Other specified disorders of bone density and structure, other site; M48.56XA Collapsed vertebra, not elsewhere classified, lumbar region, initial encounter for fracture; M54.50 Low back pain, unspecified
CPT/HCPCS: 72110

== ENCOUNTER → 2023-04-10 17:05 | Outpatient (CLI) | payer OTHER, SELFPAY | PROVIDERS: PCP Family Medicine; Visit Provider Student in an Organized Health Care Education/Training Program | DX: R30.0 Dysuria (principal) | CPT/HCPCS: 87086 ==

== ENCOUNTER → 2023-05-14 17:00 | Outpatient (CLI) | payer OTHER, SELFPAY ==
[2023-05-14 17:42] LABS: Add Manual Diff / Slide Review NO; Basophils Absolute Auto 0 /uL (0-100); Basophils Percent Auto 0.6 % (0-2); Eosinophils Absolute Auto 100 /uL (0-450); Eosinophils Percent Auto 1.2 % (2-4); Hematocrit 42.3 % (36-46); Lymphocytes Absolute Auto 1200 /uL (1100-4500); Lymphocytes Percent Auto 19.8 % (25-40); Mean Corpuscular HGB Conc 33.1 % (30-36); Mean Corpuscular Hemoglobin 29.8 PG (26-34); Monocytes Absolute Auto 500 /uL (0-900); Monocytes Percent Auto 8.5 % (3-14); Neutrophils Absolute Auto 4100 /uL (1500-7000); Neutrophils Percent Auto 69.9 % (50-75); Platelet Count 390 X10^3/uL (150-400); Red Blood Cell Count 4.71 X10^6/uL (4.0-5.2); Red Cell Distribution Width 13.5 % (11.6-14.8); White Blood Cell Count 5.9 X10^3/uL (4.5-11.0)
[2023-05-14 18:08] LABS: HEMOLYSIS < 15 (0-50); Iron 88 ug/dL (37-170)
[2023-05-14 18:09] LABS: Alanine Aminotransferase 14 IU/L (<35); Albumin 4.6 g/dL (3.5-5.0); Albumin Globulin Ratio 1.3 (1.0-2.8); Alkaline Phosphatase 94 U/L (38-126); Aspartate Aminotransferase 25 IU/L (14-36); BUN Creatinine Ratio 17.9 (6-22); Bilirubin Total 0.9 mg/dL (0.2-1.3); Blood Urea Nitrogen 12 mg/dL (7-17); Calcium 9.7 mg/dL (8.4-10.2); Carbon Dioxide 26 mmol/L (22-32); Chloride 92 mmol/L (98-107); Estimated Glomerular Filt Rate > 60 mL/min (>60); Globulin 3.6 g/dL (1.7-4.1); Glucose 103 mg/dL (80-110); HEMOLYSIS 16 (0-50); Potassium 4.6 mmol/L (3.4-5.1); Sodium 128 mmol/L (137-145); Total Protein 8.2 g/dL (6.3-8.2)
[2023-05-14 18:18] LABS: Percent Iron Saturation 22 % (15-50); Total Iron Binding Capacity 407 ug/dL (265-497); Transferrin 353 mg/dL (206-381)
[2023-05-14 18:38] LABS: Vitamin D 25 Hydroxy (D3) 19.4 ng/mL (30.0-100.0)
[2023-05-14 18:40] LABS: TSH w/ Reflex to FT4 2.99 uIU/mL (0.47-4.68)
[2023-05-14 18:44] LABS: Ferritin 10 ng/mL (11-264)
[2023-05-14 18:58] LABS: Vitamin B12 599 pg/mL (239-931)
== END ==
LOC: LAB 17:01
PROVIDERS: PCP Family Medicine; Referring Provider Physician Assistant; Visit Provider Physician Assistant
DX: E78.5 Hyperlipidemia, unspecified (principal); R53.83 Other fatigue; I10 Essential (primary) hypertension; E53.8 Deficiency of other specified B group vitamins; I63.511 Cerebral infarction due to unspecified occlusion or stenosis of right middle cerebral artery
CPT/HCPCS: 36415; 80053; 82306; 82607; 82728; 83540; 83550; 84443; 85025

== ENCOUNTER 2023-07-16 13:45 | Emergency (ER) | payer OTHER, SELFPAY ==
[2023-07-16] VITALS (8 sets, daily range): BP systolic 181–219; BP diastolic 98–117; PULSE 78–108; RESP 20–28; TEMP 37; O2SAT 94–97; BMI 25.8
--- NOTE | 2023-07-16 13:50 | DI.RAD.S_ITS ---
PROCEDURE: XR CHEST 1V INDICATIONS: Chest pain TECHNIQUE: One view of the chest was acquired. COMPARISON: [facility], CR, XR CHEST 1V, 10/27/2022, 22:11. FINDINGS: Surgical changes and devices: None. Lungs and pleura: Lungs are clear. No pleural effusions or pneumothorax. Mediastinum: Large hiatal hernia. Heart size is normal. Bones and chest wall: No suspicious bony lesions. Overlying soft tissues appear unremarkable. IMPRESSION: No acute cardiopulmonary abnormality is seen. Large hiatal hernia. Approved by: Sharon Hickey M.D.,Ph.D. on 07/16/2023 at 15:18
[2023-07-16 14:46] LABS: Add Manual Diff / Slide Review NO; Basophils Absolute Auto 0 /uL (0-100); Basophils Percent Auto 0.7 % (0-2); Eosinophils Absolute Auto 100 /uL (0-450); Eosinophils Percent Auto 1.8 % (2-4); Hematocrit 44.2 % (36-46); Hemoglobin 14.4 g/dL (12.0-16.0); Lymphocytes Absolute Auto 1100 /uL (1100-4500); Lymphocytes Percent Auto 24.3 % (25-40); Mean Corpuscular HGB Conc 32.7 % (30-36); Mean Corpuscular Hemoglobin 29.9 PG (26-34); Mean Corpuscular Volume 91.3 fL (80-100); Monocytes Absolute Auto 500 /uL (0-900); Monocytes Percent Auto 10.2 % (3-14); Neutrophils Absolute Auto 3000 /uL (1500-7000); Platelet Count 392 X10^3/uL (150-400); Red Blood Cell Count 4.84 X10^6/uL (4.0-5.2); Red Cell Distribution Width 14.2 % (11.6-14.8); White Blood Cell Count 4.7 X10^3/uL (4.5-11.0)
[2023-07-16 14:56] LABS: Alanine Aminotransferase 14 IU/L (<35); Albumin 4.8 g/dL (3.5-5.0); Albumin Globulin Ratio 1.5 (1.0-2.8); Alkaline Phosphatase 89 U/L (38-126); Aspartate Aminotransferase 24 IU/L (14-36); Blood Urea Nitrogen 12 mg/dL (7-17); Calcium 10.1 mg/dL (8.4-10.2); Carbon Dioxide 30 mmol/L (22-32); Chloride 99 mmol/L (98-107); Creatine Kinase 42 U/L (30-135); Estimated Glomerular Filt Rate > 60 mL/min (>60); Globulin 3.2 g/dL (1.7-4.1); Glucose 97 mg/dL (80-110); HEMOLYSIS < 15 (0-50); Lipase 57 U/L (23-300); Potassium 3.9 mmol/L (3.4-5.1); Sodium 134 mmol/L (137-145)
[2023-07-16 15:08] LABS: Troponin I < 0.012 ng/mL (0.01-0.034)
--- NOTE | 2023-07-16 15:10 | ED_ITS ---
HPI - Arrhythmia/Palpitations General Chief Complaint: Arrhythmia/Palpitations Stated Complaint: dizzy/ heart feels werid/HR 101 BP 139/79 Time Seen by Provider: 07/16/23 13:50 Source: patient Mode of arrival: Ambulatory History of Present Illness HPI narrative: Patient is an 88-year-old female. Has a history of high blood pressure and macular degeneration who is here for evaluation of blurry vision, shortness of breath. No chest pain. No palpitations. The symptoms have actually been going on for the past several months. She does have an appointment with her primary doctor tomorrow. She states that the shortness of breath does seem to come and go but it is every day. Same thing with the blurry vision. No headaches. She does have issues with high blood pressure. She did not take her blood pressure medicines today. She denies any upper or lower extremity numbness or tingling. No balance issues. She has seen her roll threader operator because of the macular degeneration does receive shots in her eyes however was told by her roll threader operator that she needs to see her primary doctor regarding her blurry vision. Related Data Previous Rx's Medication Instructions Recorded lovastatin 20 mg tablet 20 mg PO ONCE PM #90 tabs 12/25/22 losartan 50 mg tablet 100 mg (2 x 50 mg) PO DAILY #180 02/10/23 tabs escitalopram oxalate 10 mg tablet 10 mg PO DAILY #30 tabs 06/12/23 clopidogrel 75 mg tablet 75 mg PO DAILY #90 tabs 07/09/23 fluconazole 150 mg tablet See Rx Instructions .Route 07/16/23 .COMPLEX #2 tabs Allergies Allergy/AdvReac Type Severity Reaction Status Date / Time No Known Drug Allergies Allergy Verified 06/12/23 16:01 Review of Systems Review of Systems ROS Unobtainable: All systems reviewed & are unremarkable except as noted in HPI and below Patient History Medical History Elevated random blood glucose level Ankle pain (2014) Hearing loss (2012) Mumps (1974) RLS (restless legs syndrome) (2009) Sleep apnea (1999) GERD (gastroesophageal reflux disease) Rheumatoid arthritis (2001) Ovarian cyst (1964) Dizziness Cerebrovascular accident (CVA) due to stenosis of right middle cerebral artery (04/09/16) Constipation (03/08/15) Hyperlipidemia (10/13/03) Essential hypertension (11/23/02) History of colon polyps CVA (cerebral vascular accident) Back pain Anxiety (2004) Depression, major Essential hypertension Hyperlipidemia, unspecified History of breast cancer (1989) Surgical History History of right mastectomy (1989) Anesthesia History of left oophorectomy History of bilateral salpingo-oophorectomy (BSO) Status post surgery (01/09/09) Family History Sister CVA (cerebral vascular accident) Father No problems noted. Mother Ruptured appendix Social History marital status: Smoking Status: Never smoker alcohol intake: current substance use type: does not use Smoking Status: Never smoker alcohol intake frequency: 0-2 drinks per day Substance Use Type: does not use Exam Initial Vital Signs Initial Vital Signs: Vital Signs Temperature 98.6 F 07/16/23 13:51 Pulse Rate 108 H 07/16/23 13:51 Respiratory Rate 20 07/16/23 13:51 Blood Pressure 206/98 H 07/16/23 13:51 Pulse Oximetry 94 07/16/23 13:51 Oxygen Delivery Method Room Air 07/16/23 13:51 Const General: cooperative and No ill appearing HENDE Head: normal to inspection and normocephalic Eyes General: Yes appearance normal, both eyes and all related structures Resp Effort & Inspection: normal respiratory effort Auscultation: clear to auscultation bilaterally Cardio Rate: regular rate Rhythm: regular rhythm GI Inspection: normal to inspection and non-distended Skin General: no rashes or lesions noted Neuro General: patient alert, patient awake, patient oriented x3 and moves all extremities Extrem General: No edema Course Orders Ordered: ED Orders 07/16/23 13:50 XR chest 1V Stat 07/16/23 14:15 Urine Microscopic Stat 07/16/23 14:35 Complete Blood Count AUTO DIFF Stat Comprehensive Metabolic Panel Stat Lipase Stat Troponin & CK Cardiac Panel Stat 07/16/23 14:36 EKG-12 Lead Stat Vital Signs Vital signs: Vital Signs - 8 hr 07/16/23 13:51 07/16/23 14:33 07/16/23 14:33 Temperature 98.6 F Pulse Rate 108 H 96 H Respiratory Rate 20 Blood Pressure 206/98 H 181/108 H Pulse Oximetry 94 96 Oxygen Delivery Method Room Air 07/16/23 15:00 07/16/23 15:00 07/16/23 15:30 Temperature Pulse Rate 91 H 78 Respiratory Rate 20 28 H Blood Pressure 197/111 H Pulse Oximetry 94 95 Oxygen Delivery Method 07/16/23 15:30 07/16/23 16:00 07/16/23 16:00 Temperature Pulse Rate 78 Respiratory Rate 27 H Blood Pressure 206/117 H 215/112 H Pulse Oximetry 97 Oxygen Delivery Method MDM - Arrhythmia/Palpitations Lab Data Attestation: I reviewed the patient's lab results. 07/16/23 14:35 07/16/23 14:35 Labs: Lab Results 07/16/23 07/16/23 Range/Units 14:15 14:35 WBC 4.7 (4.5-11.0) X10^3/uL RBC 4.84 (4.0-5.2) X10^6/uL Hgb 14.4 (12.0-16.0) g/dL Hct 44.2 (36-46) % MCV 91.3 (80-100) fL MCH 29.9 (26-34) PG MCHC 32.7 (30-36) % RDW 14.2 (11.6-14.8) % Plt Count 392 (150-400) X10^3/uL Neut % (Auto) 63.0 (50-75) % Lymph % (Auto) 24.3 L (25-40) % [place] % (Auto) 10.2 (3-14) % Eos % (Auto) 1.8 L (2-4) % Baso % (Auto) 0.7 (0-2) % Neut # (Auto) 3000 (6041-2178) /uL Lymph # (Auto) 1100 (5599-1168) /uL [place] # (Auto) 500 (0-900) /uL Eos # (Auto) 100 (0-450) /uL Baso # (Auto) 0 (0-100) /uL Sodium 134 L (137-145) mmol/L Potassium 3.9 (3.4-5.1) mmol/L Chloride 99 (98-107) mmol/L Carbon Dioxide 30 (22-32) mmol/L BUN 12 (7-17) mg/dL Creatinine 0.63 (0.52-1.04) mg/dL Estimated GFR > 60 (>60) mL/min BUN/Creatinine Ratio 19.0 (6-22) Glucose 97 (80-110) mg/dL Calcium 10.1 (8.4-10.2) mg/dL Total Bilirubin 1.0 (0.2-1.3) mg/dL AST 24 (14-36) IU/L ALT 14 (<35) IU/L Alkaline Phosphatase 89 (38-126) U/L Total Creatine Kinase 42 (30-135) U/L Troponin I < 0.012 (0.01-0.034) ng/mL Total Protein 8.0 (6.3-8.2) g/dL Albumin 4.8 (3.5-5.0) g/dL Globulin 3.2 (1.7-4.1) g/dL Albumin/Globulin Ratio 1.5 (1.0-2.8) Lipase 57 (23-300) U/L Urine RBC 1-5/hpf (0-5/HPF) Urine WBC 0-1/hpf (0-5/HPF) Ur Squamous Epith Cells 5-10 /hpf H (0-5/HPF) Urine Bacteria Many (>30) H (None) Urine Mucus 1+ H (Negative) Urine Yeast 1-5/hpf H (None) Ur Culture Indicated? Cult not indicated Vol Urine Centrifuged 10ml (spun) Urine Dip Bedside Urine Glucose Negative Bedside Urine Bilirubin - Negative Bedside Urine Ketone - Negative Urine Specific [place] 1.020 Bedside Urine Occult Blood +++ Bedside Urine pH 6.0 Bedside Urine Protein - Negative Bedside Urine Urobilinogen - Negative Bedside Urine Nitrite - Negative Bedside Urine Leukocytes - Negative Esterase Imaging Data Chest x-ray: Radiologist's Impresson: PROCEDURE: XR CHEST 1V INDICATIONS: Chest pain TECHNIQUE: One view of the chest was acquired. COMPARISON: [facility], , XR CHEST 1V, 10/27/2022, 22:11. FINDINGS: Surgical changes and devices: None. Lungs and pleura: Lungs are clear. No pleural effusions or pneumothorax. Mediastinum: Large hiatal hernia. Heart size is normal. Bones and chest wall: No suspicious bony lesions. Overlying soft tissues appear unremarkable. IMPRESSION: No acute cardiopulmonary abnormality is seen. Large hiatal hernia. ECG Data Interpretation: Sinus rhythm Ventricular rate of 92 Normal QRS Normal QTC No ST T wave changes MDM Narrative Medical decision making narrative: Patient has been hypertensive since arrival here in the ER but has no chest pain, no shortness of breath, no headache. Her labs are relatively unremarkable. Her symptoms have actually been going on for several months so I have low suspicion that this has a hypertensive emergency or CVA or TIA or ACS. She has no urinary symptoms. She does have yeast in her urinalysis and we will treat this has a yeast infection. We will hold on treating for any sort of urinary tract infection until the culture results. She has a follow-up with her primary doctor already scheduled for tomorrow. She was instructed to keep this appointment. We discussed her blood pressure. She was given return precautions and follow-up instructions. She expressed understanding and agreement. Discharge Plan Departure Patient Disposition: Home Clinical Impression: Yeast infection, Blurred vision, Hypertension Instructions: High Blood Pressure, DI for Vaginal Yeast Infection Activity Restrictions/Additional Instructions: Keep your appointment that she was scheduled with your primary doctor for tomorrow. A prescription for the [facility] Please take it as directed. A urine culture was pending at the time your discharge we will contact you if we need to start antibiotics based on this. Return to the emergency department for new or worsening symptoms. Prescriptions: New fluconazole 150 mg tablet See Rx Instructions .ROUTE .COMPLEX Qty: 2 0RF Rx Instructions: take 1 tab today and another in 72 hours No Action lovastatin 20 mg tablet 20 mg PO ONCE PM Qty: 90 3RF losartan 50 mg tablet 100 mg PO DAILY Qty: 180 1RF clopidogrel 75 mg tablet 75 mg PO DAILY Qty: 90 3RF escitalopram oxalate 10 mg tablet 10 mg PO DAILY Qty: 30 1RF Referrals: Klever Hernández MD [Primary Care Provider] - Stand Alone Forms: Patient Portal/API
[2023-07-16 15:12] LABS: Bacteria Urine Many (>30); Mucus Urine 1+ (Negative); RBC Urine 1-5/HPF (0-5/HPF); Squamous Epithelial Cell Urine 5-10 /HPF (0-5/HPF); Urine Volume 10mL (spun); WBC Urine 0-1/HPF (0-5/HPF)
[2023-07-16 15:13] LABS: Culture Indicated Urine Cult Not Indicated
--- NOTE | 2023-07-16 18:04 | PC.NURSE ---
patient okayed by provider to take home blood pressure medication. patient took 100mg of losartan. provider aware.
== END 2023-07-16 17:00 | disposition home or self-care (01) ==
PROVIDERS: Emergency Provider Emergency Medicine; PCP Family Medicine
DX: B37.31 Acute candidiasis of vulva and vagina (principal); H53.8 Other visual disturbances; I10 Essential (primary) hypertension; R07.9 Chest pain, unspecified; R06.02 Shortness of breath
CPT/HCPCS: 36415; 71045; 80053; 81003; 81015; 82550; 83690; 84484; 85025; 93005; 99283; 99284

== ENCOUNTER 2024-03-07 15:57 | Observation (INO) | payer OTHER, SELFPAY ==
[2024-03-07] VITALS (18 sets, daily range): BP systolic 143–198; BP diastolic 87–110; PULSE 100–115; RESP 18–33; TEMP 36.4–37.4; O2SAT 94–98; BMI 25.8; BMI 24.0
--- NOTE | 2024-03-07 16:15 | DI.RAD.S_ITS ---
PROCEDURE: XR CHEST 1V INDICATIONS: rubin fregoso reports seizure 1 wk ago TECHNIQUE: One view of the chest was acquired. COMPARISON: [facility], CR, XR CHEST 1V, 07/16/2023, 13:56. FINDINGS: Surgical changes and devices: None. Lungs and pleura: Lungs are clear. No pleural effusions or pneumothorax. Mediastinum: Mediastinal contours appear normal. Heart size is normal. Large hiatal hernia Atherosclerotic vascular calcification noted in the aortic arch. Bones and chest wall: No suspicious bony lesions. Overlying soft tissues appear unremarkable. IMPRESSION: No acute cardiopulmonary abnormality is seen. Approved by: Beau Lee M.D. on 03/07/2024 at 16:08
--- NOTE | 2024-03-07 16:32 | EKG_ITS ---
[address] [address] [place] [address] Test Date: 2024-03-07 Pat Name: Karlee Noguera Department: [facility] Room: Gender: Female Emergency Response Technician: MADYSON : 1935 Requested By: Order Number: [id number] Reading MD: Huber Wakefield MD Measurements Intervals [place] Rate: 113 P: 30 VT: 180 QRS: 5 QRSD: 80 T: 29 QT: 322 QTc: 441 Interpretive Statements Sinus tachycardia Nonspecific ST and T wave abnormality Electronically Signed On 03-07-2024 17:08:08 PST by Huber Wakefiedl MD
--- NOTE | 2024-03-07 16:38 | ED.NEUROSD ---
HPI - Neuro Symptoms/Deficit General Chief Complaint: Neuro Symptoms/Deficit Stated Complaint: seizure x1wk, feeling like about to have another Time Seen by Provider: 03/07/24 16:14 Source: patient, RN notes reviewed and old records reviewed Mode of arrival: Ambulatory Limitations: no limitations History of Present Illness HPI Narrative: 89-year-old female history of hypertension, dyslipidemia, macular degeneration on Plavix reports diagnosed with seizure, UTI and dehydration and seen at [facility] on 02/27/2024 patient has been taking amoxicillin. Patient presents stating she feels similar to the previous time. She was describes feeling dizzy all day and that her vision is blurry or than usual she does have known macular degeneration. Patient presents stating she just feels sort of funny. She describes feeling dizzy all day she states it has not like she was going to pass out it has not like the room is spinning she was feels ?funny?. Denies headache, poor vision has been sort of blurry your than normal all day. Denies any chest pain, she was little short of breath but states she was always a little short of breath. She states no cough cold or congestive symptoms. She has been a little nauseated today no vomiting. No issues with the abdominal, back or flank pain. Was having some urinary symptoms when she had her episode on 02/27/2024 but states that is improved after the antibiotics. No issues with bowel movements. No weakness, numbness or tingling of her extremities. She was able to ambulate like she normally does today but daughter notes seems a little bit weaker. Patient had seizure-like activity reported by EMS, family was not with her when this occurred. She does take medication for dyslipidemia, hypertension and a thinner. Has been off her cholesterol medication but restarted it. Daughter states blood sugar was high on Friday when she was seen in the emergency department. They have been holding her coffee this week and having less sugary meals. Patient states a prior left ovarian removal remotely, no prior cardiac surgeries or interventions. No tobacco, alcohol or recreational drugs. They have decreased her caffeine intake this week. Dr. Hernández is her primary care physician. Discussed with patient and daughter at bedside she was DNR/DNI. On Anticoagulants: Yes Related Data Previous Rx's Medication Instructions Recorded clopidogrel 75 mg tablet 75 mg PO DAILY #90 tabs 07/09/23 furosemide 40 mg tablet (Lasix) 40 mg PO DAILY #10 tabs 07/17/23 fluoxetine 20 mg capsule 20 mg PO DAILY #90 caps 08/11/23 inhalational spacing device #1 ea 09/03/23 (BreatheRite MDI Spacer) albuterol sulfate 90 mcg/actuation 2 puff inhalation BID PRN 09/09/23 aerosol inhaler shortness of breath or wheezing #6.7 grams losartan 50 mg tablet 100 mg (2 x 50 mg) PO DAILY #180 02/23/24 tabs lovastatin 20 mg tablet 20 mg PO ONCE PM #90 tabs 02/23/24 Allergies Allergy/AdvReac Type Severity Reaction Status Date / Time No Known Drug Allergies Allergy Verified 12/22/23 15:32 Review of Systems Review of Systems ROS Unobtainable: All systems reviewed & are unremarkable except as noted in HPI and below Hematologic/Lymphatic On Anticoagulants: Yes Patient History Medical History Elevated random blood glucose level Ankle pain (2014) Hearing loss (2012) Mumps (1974) RLS (restless legs syndrome) (2009) Sleep apnea (1999) GERD (gastroesophageal reflux disease) Rheumatoid arthritis (2001) Ovarian cyst (1964) Dizziness Cerebrovascular accident (CVA) due to stenosis of right middle cerebral artery (04/09/16) Constipation (03/08/15) Hyperlipidemia (10/13/03) Essential hypertension (11/23/02) History of colon polyps CVA (cerebral vascular accident) Back pain Anxiety (2004) Depression, major Essential hypertension Hyperlipidemia, unspecified History of breast cancer (1989) Surgical History History of right mastectomy (1989) Anesthesia History of left oophorectomy History of bilateral salpingo-oophorectomy (BSO) Status post surgery (01/09/09) Family History Sister CVA (cerebral vascular accident) Father No problems noted. Mother Ruptured appendix Social History marital status: Smoking Status: Never smoker alcohol intake: current substance use type: does not use Smoking Status: Never smoker alcohol intake frequency: 0-2 drinks per day Exam Narrative Exam Narrative: GEN: well nourished, well appearing mild relief, alert and oriented x 3, patient appears to be in mild distress. HEENT: Atraumatic, pupils are equal round reactive to light, extraocular movements are intact, nares are clear, TMs are clear with no fluid, there is no conjunctival pallor. Throat is clear without any exudates, erythema, tonsillar enlargement or uvular deviation HEART: Regular rate and rhythm without murmur, clicks, rubs. pulses are equal in upper and lower extremities LUNGS:Lungs clear to auscultation, no wheezes, rales, crackles, chest moves symmetrically ABD:bowel sounds normal, soft, non-tender, no guarding, rebound, rigidity, no masses noted, no hepatosplenomegaly :No CVA tenderness MSCL: Non-tender, no muscle atrophy, muscles strength 5/5 upper and lower extremities, full range of motion. NEURO:CN 2-12 intact, sensation normal Initial Vital Signs Initial Vital Signs: Vital Signs Temperature 97.6 F 03/07/24 16:01 Pulse Rate 115 H 03/07/24 16:01 Respiratory Rate 22 03/07/24 16:01 Blood Pressure 198/98 H 03/07/24 16:01 Pulse Oximetry 98 03/07/24 16:01 Oxygen Delivery Method Room Air 03/07/24 16:01 Course Orders Ordered: ED Orders 03/07/24 16:14 EKG-12 Lead Stat 03/07/24 16:15 XR chest 1V Stat 03/07/24 16:45 Ammonia (NH3) Stat Complete Blood Count AUTO DIFF Stat Comprehensive Metabolic Panel Stat Ethanol (ETOH) Stat Lactate (Lactic Acid) Stat PTT Partial Thromboplastin [place] Stat Procalcitonin Stat Prothrombin Time INR Stat Thyroid Stimulating Hormone Stat 03/07/24 16:54 Blood Culture Stat 03/07/24 17:05 Urinalysis and Microscopic Stat Urine Culture Stat Urine Drug Screen, Rapid Stat 03/07/24 18:03 CT head/brain wo con Stat Discontinued Medications Sodium Chloride (Normal Saline 0.9%) 1,000 mls @ 1,000 mls/hr IV BOLUS ONE Stop: 03/07/24 17:13 Last Infusion: 03/07/24 17:51 Dose: Infused Documented By: Admin: 03/07/24 16:40 Dose: 1,000 mls/hr Documented By: KATHIA Ondansetron HCl (Ondansetron 4 Mg/2 Ml Inj) 4 mg IV NOW ONE Stop: 03/07/24 17:08 Last Admin: 03/07/24 17:18 Dose: 4 mg Documented By: KATHIA Vital Signs Vital signs: Vital Signs - 8 hr 03/07/24 16:01 03/07/24 16:15 03/07/24 16:30 Temperature 97.6 F Pulse Rate 115 H 112 H 111 H Respiratory Rate 22 20 20 Blood Pressure 198/98 H Pulse Oximetry 98 97 Oxygen Delivery Method Room Air 03/07/24 16:31 03/07/24 16:31 03/07/24 17:00 Temperature Pulse Rate 112 H Respiratory Rate 20 Blood Pressure 185/104 H 190/110 H Pulse Oximetry 97 Oxygen Delivery Method 03/07/24 17:00 03/07/24 17:20 03/07/24 17:20 Temperature Pulse Rate 110 H 103 H Respiratory Rate 20 21 Blood Pressure 171/91 H Pulse Oximetry 97 95 Oxygen Delivery Method 03/07/24 17:30 03/07/24 17:40 03/07/24 18:00 Temperature Pulse Rate 100 H Respiratory Rate 21 Blood Pressure 171/87 H 175/98 H Pulse Oximetry 96 Oxygen Delivery Method 03/07/24 18:00 Temperature Pulse Rate 102 H Respiratory Rate 20 Blood Pressure Pulse Oximetry 95 Oxygen Delivery Method MDM - Neuro Symptoms/Deficit Lab Data 03/07/24 16:45 03/07/24 16:45 Labs: Lab Results 03/07/24 03/07/24 03/07/24 Range/Units 16:45 17:05 17:05 WBC 6.4 (4.5-11.0) X10^3/uL RBC 4.66 (4.0-5.2) X10^6/uL Hgb 13.4 (12.0-16.0) g/dL Hct 40.7 (36-46) % MCV 87.2 (80-100) fL MCH 28.7 (26-34) PG MCHC 32.9 (30-36) % RDW 14.3 (11.6-14.8) % Plt Count 454 H (150-400) X10^3/uL Neut % (Auto) 65.3 (50-75) % Lymph % (Auto) 21.8 L (25-40) % [place] % (Auto) 10.2 (3-14) % Eos % (Auto) 1.6 L (2-4) % Baso % (Auto) 1.1 (0-2) % Neut # (Auto) 4200 (1340-8983) /uL Lymph # (Auto) 1400 (8396-5086) /uL [place] # (Auto) 700 (0-900) /uL Eos # (Auto) 100 (0-450) /uL Baso # (Auto) 100 (0-100) /uL PT 11.5 (9.4-12.5) SECONDS INR 1.0 (0.9-1.3) APTT 35 (25.1-36.5) SECONDS Sodium 126 L (137-145) mmol/L Potassium 4.0 (3.4-5.1) mmol/L Chloride 92 L (98-107) mmol/L Carbon Dioxide 26 (22-32) mmol/L BUN 15 (7-17) mg/dL Creatinine 0.89 (0.52-1.04) mg/dL Estimated GFR > 60 (>60) mL/min BUN/Creatinine Ratio 16.9 (6-22) Glucose 111 H (80-110) mg/dL Lactate 1.2 (0.7-2.1) mmol/L Calcium 9.5 (8.4-10.2) mg/dL Total Bilirubin 1.0 (0.2-1.3) mg/dL AST 29 (14-36) IU/L ALT 18 (<35) IU/L Alkaline Phosphatase 95 (38-126) U/L Ammonia < 9 L (9-30) umol/L Total Protein 7.4 (6.3-8.2) g/dL Albumin 4.3 (3.5-5.0) g/dL Globulin 3.1 (1.7-4.1) g/dL Albumin/Globulin Ratio 1.4 (1.0-2.8) Procalcitonin < 0.030 (<0.5) ng/mL TSH 1.95 (0.47-4.68) uIU/mL Urine Color Yellow Urine Appearance Clear Urine pH 6.0 Normal (4.5-8.0) Ur Specific [place] 1.015 (1.000-1.035) Urine Protein Negative (Negative) Urine Glucose (UA) Negative (Negative) g/dL Urine Ketones Negative (NEGATIVE) Urine Occult Blood 2+ H (Negative) Urine Nitrate Negative (Negative) Urine Bilirubin Negative (NEGATIVE) Urine Urobilinogen 0.2 (0.2) E.U./dL Ur Leukocyte Esterase Negative (NEGATIVE) Urine RBC 0-1/hpf (0-5/HPF) Urine WBC 0-1/hpf (0-5/HPF) Ur Squamous Epith Cells 0-1 /hpf (0-5/HPF) Urine Bacteria Occasional (0-1) (None) Vol Urine Centrifuged 10ml (spun) U Opiates 300ng/mL cut Negative (Negative) Ur Oxycodone Screen Negative (Negative) Urine Methadone Screen Negative (Negative) Ur Barbiturates Screen Negative (Negative) U Tricyclic Antidepress Negative (Negative) Ur Phencyclidine Scrn Negative (Negative) Ur Amphetamines Screen Negative (Negative) U Methamphetamines Scrn Negative (Negative) Ur MDMA Scrn (Ecstasy) Negative (Negative) U Benzodiazepines Scrn Negative (Negative) Urine Cocaine Screen Negative (Negative) U Marijuana (THC) Screen Negative (Negative) Urine Specific [place] Normal (Normal) Ethyl Alcohol < 10 ( - 10) mg/dL Ur Creatinine Normal (Normal) Point of Care Testing Glucose POC 114 ECG Data Attestation: I personally reviewed and interpreted this ECG as follows: Prior ECG tracings: available for review Interpretation: Sinus tachycardia rate of 113 [place] 180 QRS 80 QTC of 441, nonspecific change. Patient has prior from 07/16/2023 does have some nonspecific change EKG looks a little bit more similar to another from the prior September. [facility] Narrative Medical decision making narrative: 89-year-old female had reported seizure possibly witnessed by EMS was found to have a UTI started on oral antibiotics was observed about 8 or 9 hours at [facility] in the [facility] and ultimately discharged home. Patient presents saying she feels sort of dizzy and funny today, she has had a little bit of nausea but no other acute neurologic events or changes. No significant mentation changes. Labs normal white count, hemoglobin and platelets of 454. Coags are negative, sodium is 126 patient was 134 in June, she was in the 130s on her labs from outside facility on the 26 of February. Potassium is 4 chloride 92 CO2 is 26 BUN 15 creatinine 0.89 glucose is 111 lactate 1.2 calcium is 9.5 normal LFTs ammonia is less than 9, procalcitonin 0.03 with a TSH of 1.95. UA 2+ blood 1 red cell 1 white cell 1 squamous 1 bacteria. UDS is negative ETOH is negative. EKG just shows sinus tachycardia patient is slightly hypertensive as well. Chest x-ray is negative. Attempting to obtain records from [facility]. Daughter states that she believes they did do a head CT. Follow up paperwork notes she should have an MRI and EEG as an outpatient follow up with primary care. Spoke with Dr. Varela, patient is hyponatremic feels dizzy was 130s. She requests CT head and asks for callback with results with plan to accept for observation. Patient signed out to Dr. Badillo while awaiting head CT. She will follow up results. Updated patient and family of results. Signed out to Dr. Badillo for Head Ct and callback to Dr. Varela. Discharge Plan Departure Clinical Impression: Hyponatremia, Dizziness Prescriptions: No Action clopidogrel 75 mg tablet 75 mg PO DAILY Qty: 90 3RF fluoxetine 20 mg capsule 20 mg PO DAILY Qty: 90 0RF Rx Instructions: once daily (DME) BreatheRite MDI Spacer Spacer See Rx Instructions .Route Qty: 1 0RF Rx Instructions: As directed albuterol sulfate 90 mcg/actuation HFA aerosol inhaler 2 puff inhalation BID PRN (Reason: shortness of breath or wheezing) Qty: 6.7 2RF Rx Instructions: Two puffs up to twice daily as needed losartan 50 mg tablet 100 mg PO DAILY Qty: 180 1RF lovastatin 20 mg tablet 20 mg PO ONCE PM Qty: 90 3RF furosemide [Lasix] 40 mg tablet 40 mg PO DAILY Qty: 10 0RF Referrals: Klever Hernández MD [Primary Care Provider] -
[2024-03-07] MEDS: SODIUM CHLORIDE 0.9% 1,000 ML 1000 ML IV (16:40)
--- NOTE | 2024-03-07 16:46 | PC.NURSE ---
Requested records from [facility] @[id number] from 02/27/[address] Farmer.
[2024-03-07 16:57] LABS: Add Manual Diff / Slide Review NO; Basophils Absolute Auto 100 /uL (0-100); Basophils Percent Auto 1.1 % (0-2); Eosinophils Absolute Auto 100 /uL (0-450); Eosinophils Percent Auto 1.6 % (2-4); Hematocrit 40.7 % (36-46); Hemoglobin 13.4 g/dL (12.0-16.0); Lymphocytes Absolute Auto 1400 /uL (1100-4500); Lymphocytes Percent Auto 21.8 % (25-40); Mean Corpuscular HGB Conc 32.9 % (30-36); Mean Corpuscular Hemoglobin 28.7 PG (26-34); Mean Corpuscular Volume 87.2 fL (80-100); Monocytes Absolute Auto 700 /uL (0-900); Monocytes Percent Auto 10.2 % (3-14); Neutrophils Absolute Auto 4200 /uL (1500-7000); Neutrophils Percent Auto 65.3 % (50-75); Platelet Count 454 X10^3/uL (150-400); Red Blood Cell Count 4.66 X10^6/uL (4.0-5.2); Red Cell Distribution Width 14.3 % (11.6-14.8); White Blood Cell Count 6.4 X10^3/uL (4.5-11.0)
[2024-03-07 17:07] LABS: Prothrombin Time 11.5 SECONDS (9.4-12.5)
[2024-03-07 17:09] LABS: Ammonia (NH3) < 9 umol/L (9-30); PTT Partial Thromboplastin Tim 35 SECONDS (25.1-36.5)
[2024-03-07 17:10] LABS: Lactate (Lactic Acid) 1.2 mmol/L (0.7-2.1)
[2024-03-07 17:12] LABS: Alanine Aminotransferase 18 IU/L (<35); Albumin 4.3 g/dL (3.5-5.0); Albumin Globulin Ratio 1.4 (1.0-2.8); Alkaline Phosphatase 95 U/L (38-126); Aspartate Aminotransferase 29 IU/L (14-36); BUN Creatinine Ratio 16.9 (6-22); Blood Urea Nitrogen 15 mg/dL (7-17); Calcium 9.5 mg/dL (8.4-10.2); Carbon Dioxide 26 mmol/L (22-32); Chloride 92 mmol/L (98-107); Estimated Glomerular Filt Rate > 60 mL/min (>60); Ethanol (ETOH) < 10 mg/dL; Globulin 3.1 g/dL (1.7-4.1); Glucose 111 mg/dL (80-110); HEMOLYSIS < 15 (0-50); Sodium 126 mmol/L (137-145); Total Protein 7.4 g/dL (6.3-8.2)
[2024-03-07] MEDS: ONDANSETRON 4 MG/2 ML INJ IV (17:18)
[2024-03-07 17:27] LABS: Procalcitonin < 0.030 ng/mL (<0.5)
[2024-03-07 17:33] LABS: Appearance Urine UA CLEAR; Bilirubin Urine UA NEGATIVE (NEGATIVE); Color Urine UA YELLOW; Glucose Urine UA NEGATIVE (Negative); Ketones Urine UA NEGATIVE (NEGATIVE); Leukocyte Esterase Urine UA NEGATIVE (NEGATIVE); Nitrite Urine UA NEGATIVE (Negative); Occult Blood Urine UA 2+ (Negative); Protein Urine UA NEGATIVE (Negative); Specific Gravity Urine UA 1.015 (1.000-1.035); Urobilinogen Urine UA 0.2 E.U./dL (0.2)
[2024-03-07 17:41] LABS: Ur Creatinine Normal (Normal); Ur Specific Gravity Normal (Normal); Urine pH Normal (Normal)
[2024-03-07 17:42] LABS: Urine Amphetamines Negative (Negative); Urine Barbiturates Negative (Negative); Urine Benzodiazepines Negative (Negative); Urine Cocaine Negative (Negative); Urine MDMA Negative (Negative); Urine Methadone Negative (Negative); Urine Methamphetamines Negative (Negative); Urine Opiates Negative (Negative); Urine Oxycodone Negative (Negative); Urine Phencyclidine Negative (Negative); Urine THC Negative (Negative); Urine Tricyclic Antidepressant Negative (Negative)
[2024-03-07 17:42] LABS: Thyroid Stimulating Hormone 1.95 uIU/mL (0.47-4.68)
[2024-03-07 17:44] LABS: Bacteria Urine Occasional (0-1); RBC Urine 0-1/HPF (0-5/HPF); Squamous Epithelial Cell Urine 0-1 /HPF (0-5/HPF); Urine Volume 10mL (spun); WBC Urine 0-1/HPF (0-5/HPF)
--- NOTE | 2024-03-07 18:03 | DI.CT.S_ITS ---
PROCEDURE: CT HEAD/BRAIN WO CON INDICATIONS: dizzy TECHNIQUE: Noncontrast 4.5 mm thick angled axial sections acquired from the foramen magnum to the vertex, with coronal and sagittal reformats. For radiation dose reduction, the following was used: automated exposure control, adjustment of mA and/or kV according to patient size. COMPARISON: Located Within [facility], CT, CT HEAD/BRAIN WO CON, 10/24/2022, 19:53. FINDINGS: CSF spaces: Basal cisterns are patent. No extra-axial fluid collections. Ventricles are normal in size and shape. Brain: No midline shift. No intracranial masses or hemorrhage. Mclaughlin-white matter interface is normal. Moderate cerebral and cerebellar volume loss with multifocal white matter chronic ischemic change noted. Atherosclerotic calcification noted associated with cavernous segments of both internal carotid arteries. Skull and face: Calvarium and visualized facial bones are intact, without suspicious lesions. Sinuses: Visualized sinuses and mastoids are clear. IMPRESSION: Atrophy and chronic ischemic change without acute hemorrhage or mass effect Approved by: Beau Lee M.D. on 03/07/2024 at 17:45
--- NOTE | 2024-03-07 19:52 | PM.HP.1 ---
History of Present Illness History of Present Illness Date Patient Seen: 03/07/24 Time Patient Seen: 19:52 Chief complaint: seizure x1wk, feeling like about to have another Narrative: This is a very pleasant 89-year-old female who is under the primary care of Dr. Hernández. She presents to the ER with complaints of feeling funny and with a history of having a seizure week ago while she was in the [place] area. She was worked up including a head CT which was negative at that time in her sodium was in the 130s low. Today this 89-year-old female history of hypertension, dyslipidemia, macular degeneration on Plavix reports diagnosed with seizure per ER evaluation, also UTI and dehydration and seen at [facility] on 02/27/2024 patient has been taking amoxicillin. They were able to get the notes from this ER visit and this was reviewed by the ER physician here today. Patient apparently had a near-syncopal episode and then seizure-like activity witnessed by the paramedics and then was taken to the ER and this is how her diagnosis was made. She has not formally seen a neurologist nor had a EEG. She has had no prior history to this Patient presents stating she feels similar to the previous time. She was describes feeling dizzy all day and that her vision is blurry or than usual she does have known macular degeneration. Patient presents stating she just feels sort of funny. She describes feeling dizzy all day she states it has not like she was going to pass out it has not like the room is spinning she was feels ?funny?. This started right after she took her medications after lunch. She was off her statin bc she thought it was making her vision worse and recently restarted it. Denies headache, poor vision has been sort of blurry your than normal all day. Denies any chest pain, she was little short of breath but states she was always a little short of breath. She states no cough cold or congestive symptoms. She has been a little nauseated today no vomiting. No issues with the abdominal, back or flank pain. Was having some urinary symptoms when she had her episode on 02/27/2024 but states that is improved after the antibiotics. No issues with bowel movements. No weakness, numbness or tingling of her extremities. She was able to ambulate like she normally does today but daughter notes seems a little bit weaker. Daughter states blood sugar was high on Friday when she was seen in the emergency department. They have been holding her coffee this week and having less sugary meals. she only drinks coffee and eats sweets. Patient states a prior left ovarian removal remotely, no prior cardiac surgeries or interventions. No tobacco, alcohol or recreational drugs. They have decreased her caffeine intake this week. Dr. Hernández is her primary care physician. Discussed with patient and daughter at bedside she was DNR/DNI. On Anticoagulants: Yes Twelve point review of systems otherwise negative Negative for any changes in bowel movements Negative for any chest pain or shortness a breath Negative for any lower extremity edema Negative for any fevers chills or cough Negative for any rashes Patient is taking amoxicillin Patient is not having any urinary symptoms or gross hematuria Urine tox screen was negative as was ammonia in the ER [facility] Medical History Elevated random blood glucose level Ankle pain (2014) Hearing loss (2012) Mumps (1974) RLS (restless legs syndrome) (2009) Sleep apnea (1999) GERD (gastroesophageal reflux disease) Rheumatoid arthritis (2001) Ovarian cyst (1964) Dizziness Cerebrovascular accident (CVA) due to stenosis of right middle cerebral artery (04/09/16) Constipation (03/08/15) Hyperlipidemia (10/13/03) Essential hypertension (11/23/02) History of colon polyps CVA (cerebral vascular accident) Back pain Anxiety (2004) Depression, major Essential hypertension Hyperlipidemia, unspecified History of breast cancer (1989) Surgical History History of right mastectomy (1989) Anesthesia History of left oophorectomy History of bilateral salpingo-oophorectomy (BSO) Status post surgery (01/09/09) Family History Sister CVA (cerebral vascular accident) Father No problems noted. Mother Ruptured appendix Social History marital status: household members: children Smoking Status: Never smoker alcohol intake: former substance use type: does not use Meds Home Medications and Allergies Home Medications Medication Instructions Recorded Confirmed Type clopidogrel 75 mg tablet 75 mg PO DAILY #90 tabs 07/09/23 03/07/24 Rx fluoxetine 20 mg capsule 20 mg PO DAILY #90 caps 08/11/23 03/07/24 Rx albuterol sulfate 90 mcg/actuation 2 puff inhalation BID PRN 09/09/23 03/07/24 Rx aerosol inhaler shortness of breath or wheezing #6.7 grams lovastatin 20 mg tablet 20 mg PO ONCE PM #90 tabs 02/23/24 03/07/24 Rx losartan 50 mg tablet 50 mg PO BID 03/07/24 03/07/24 History Allergies Allergy/AdvReac Type Severity Reaction Status Date / Time No Known Drug Allergies Allergy Verified 12/22/23 15:32 Exam Vital Signs (past 8 hours): - 03/07/24 16:01 03/07/24 16:15 03/07/24 16:30 Temperature 97.6 F Pulse Rate 115 H 112 H 111 H Respiratory Rate 22 20 20 Blood Pressure 198/98 H Pulse Oximetry 98 97 Oxygen Delivery Method Room Air 03/07/24 16:31 03/07/24 16:31 03/07/24 17:00 Temperature Pulse Rate 112 H Respiratory Rate 20 Blood Pressure 185/104 H 190/110 H Pulse Oximetry 97 Oxygen Delivery Method 03/07/24 17:00 03/07/24 17:20 03/07/24 17:20 Temperature Pulse Rate 110 H 103 H Respiratory Rate 20 21 Blood Pressure 171/91 H Pulse Oximetry 97 95 Oxygen Delivery Method 03/07/24 17:30 03/07/24 17:40 03/07/24 18:00 Temperature Pulse Rate 100 H Respiratory Rate 21 Blood Pressure 171/87 H 175/98 H Pulse Oximetry 96 Oxygen Delivery Method 03/07/24 18:00 03/07/24 18:30 03/07/24 19:00 Temperature Pulse Rate 102 H 109 H 108 H Respiratory Rate 20 20 20 Blood Pressure 168/101 H Pulse Oximetry 95 96 96 Oxygen Delivery Method Oxygen Delivery Method Room Air Narrative Exam Narrative: Very pleasant 89-year-old female resting quietly in the [facility] alert and oriented x3 HEENT is unremarkable Neck: Supple without adenopathy thyromegaly jugular venous distention or bruits Chest: Clear to auscultation without wheezes rhonchi or crackles Cor: Regular rate and rhythm without a murmur, distant S1-S2 Abdomen positive bowel sounds, soft, nontender, nondistended Extremities no edema pulses intact Neurologic exam is nonfocal Objective Labs 03/07/24 16:45 03/07/24 16:45 Labs: Laboratory Results - last 24 hr 03/07/24 03/07/24 03/07/24 16:45 17:05 17:05 WBC 6.4 RBC 4.66 Hgb 13.4 Hct 40.7 MCV 87.2 MCH 28.7 MCHC 32.9 RDW 14.3 Plt Count 454 H Neut % (Auto) 65.3 Lymph % (Auto) 21.8 L [place] % (Auto) 10.2 Eos % (Auto) 1.6 L Baso % (Auto) 1.1 Neut # (Auto) 4200 Lymph # (Auto) 1400 [place] # (Auto) 700 Eos # (Auto) 100 Baso # (Auto) 100 PT 11.5 INR 1.0 APTT 35 Sodium 126 L Potassium 4.0 Chloride 92 L Carbon Dioxide 26 BUN 15 Creatinine 0.89 Estimated GFR > 60 BUN/Creatinine Ratio 16.9 Glucose 111 H Lactate 1.2 Calcium 9.5 Total Bilirubin 1.0 AST 29 ALT 18 Alkaline Phosphatase 95 Ammonia < 9 L Total Protein 7.4 Albumin 4.3 Globulin 3.1 Albumin/Globulin Ratio 1.4 Procalcitonin < 0.030 TSH 1.95 Urine Color Yellow Urine Appearance Clear Urine pH 6.0 Normal Ur Specific [place] 1.015 Urine Protein Negative Urine Glucose (UA) Negative Urine Ketones Negative Urine Occult Blood 2+ H Urine Nitrate Negative Urine Bilirubin Negative Urine Urobilinogen 0.2 Ur Leukocyte Esterase Negative Urine RBC 0-1/hpf Urine WBC 0-1/hpf Ur Squamous Epith Cells 0-1 /hpf Urine Bacteria Occasional (0-1) Vol Urine Centrifuged 10ml (spun) U Opiates 300ng/mL cut Negative Ur Oxycodone Screen Negative Urine Methadone Screen Negative Ur Barbiturates Screen Negative U Tricyclic Antidepress Negative Ur Phencyclidine Scrn Negative Ur Amphetamines Screen Negative U Methamphetamines Scrn Negative Ur MDMA Scrn (Ecstasy) Negative U Benzodiazepines Scrn Negative Urine Cocaine Screen Negative U Marijuana (THC) Screen Negative Urine Specific [place] Normal Ethyl Alcohol < 10 Ur Creatinine Normal Assessment & Plan Assessment & Plan narrative: Very pleasant 89-year-old female with a history 1 week ago of syncopal episode and then possible seizure-like activity. Patient now presenting with similar symptoms feeling that she feels similar as 2 prior to last episode and was found to have hyponatremia at 126. Patient was admitted for further workup and evaluation Assessment 1. Hyponatremia unclear etiology. On review of her chart she has had sodiums as low as 128 and I think that this is more likely a chronic thing. Unclear if it is contributing to her current symptoms or the episode last week but given patient's symptomatology in her history she requires admission for treatment, further workup and monitoring Plan: Will continue with normal saline and gently bring up the sodium. Will recheck in the morning. Assessment 2. Hypertension. Elevated in ER. May need additional meds will monitor. MRI in am to rule out CVA Assessment 3. Hyperlipidemia. Possible side effects from statin. Will hold Assessment 4. Anxiety. currently stable. will continue fluoxetine Assessment 5. Thrombo cytosis unclear etiology Plan: Will recheck tomorrow Assessment 6. History of recent UTI Plan: Will repeat urine culture Assessment 7. Macular degeneration stable plan: Will monitor Assessment 8. CVA on Plavix Plan: Will continue to follow. Will likely do MRI MRA protocol in the a.m.. Continue to monitor blood pressure continue antihypertensive antihyperlipidemia and Plavix 76 minutes spent spent with patient, discussing with other physicians, nursing, reviewing her clinic chart as well as hospital chart and workup in the ER, meeting with patient formulating a plan and documentation Repeat CT scan done today was normal Code status is DNR/DNI per patient and her daughter. Time-Based Coding :: [TOTAL MINUTES] spent with patient and on the chart (including review of chart, obtaining history, exam, reviewing outside data, placing orders, documenting exam and treatment plan, and counseling patient) on [DATE].
[2024-03-07] MEDS: SODIUM CHLORIDE 0.45% 1,000 ML 75 ML IV (21:28)
[2024-03-07] MEDS: MELATONIN 3 MG TABLET 6 MG PO (22:51)
--- NOTE | 2024-03-07 23:41 | PC.NURSE ---
NOC: Pt requested sleep aid, mentioned she has taken melatonin at home. Called [facility] and requested melatonin per OTC protocol. Pt resting comfortably, call light w/in reach, care continues.
[2024-03-08 01:38] VITALS: BP 163/91; PULSE 83; O2SAT 96
[2024-03-08 03:55] VITALS: RESP 18
[2024-03-08 06:42] LABS: Add Manual Diff / Slide Review NO; Basophils Absolute Auto 0 /uL (0-100); Basophils Percent Auto 0.9 % (0-2); Eosinophils Absolute Auto 100 /uL (0-450); Hematocrit 38.4 % (36-46); Hemoglobin 12.3 g/dL (12.0-16.0); Lymphocytes Absolute Auto 1100 /uL (1100-4500); Lymphocytes Percent Auto 19.5 % (25-40); Mean Corpuscular HGB Conc 32.1 % (30-36); Monocytes Absolute Auto 700 /uL (0-900); Monocytes Percent Auto 12.5 % (3-14); Neutrophils Absolute Auto 3500 /uL (1500-7000); Neutrophils Percent Auto 65.1 % (50-75); Platelet Count 396 X10^3/uL (150-400); Red Blood Cell Count 4.41 X10^6/uL (4.0-5.2); Red Cell Distribution Width 14.2 % (11.6-14.8); White Blood Cell Count 5.4 X10^3/uL (4.5-11.0)
[2024-03-08 06:52] LABS: Alanine Aminotransferase 16 IU/L (<35); Albumin 3.8 g/dL (3.5-5.0); Albumin Globulin Ratio 1.3 (1.0-2.8); Alkaline Phosphatase 88 U/L (38-126); Aspartate Aminotransferase 25 IU/L (14-36); BUN Creatinine Ratio 15.7 (6-22); Bilirubin Total 0.7 mg/dL (0.2-1.3); Blood Urea Nitrogen 11 mg/dL (7-17); Calcium 9.3 mg/dL (8.4-10.2); Carbon Dioxide 27 mmol/L (22-32); Chloride 98 mmol/L (98-107); Estimated Glomerular Filt Rate > 60 mL/min (>60); Globulin 2.9 g/dL (1.7-4.1); Glucose 109 mg/dL (80-110); HEMOLYSIS < 15 (0-50); Potassium 4.2 mmol/L (3.4-5.1); Sodium 130 mmol/L (137-145); Total Protein 6.7 g/dL (6.3-8.2)
[2024-03-08 06:53] VITALS: BP 150/91; PULSE 83; RESP 18; TEMP 37.1; O2SAT 94
[2024-03-08 07:00] VITALS: BP 165/91; PULSE 88; RESP 20; TEMP 36.9; O2SAT 94
--- NOTE | 2024-03-08 08:17 | DI.MRI.S_ITS ---
PROCEDURE: MR STROKE Pre- and post-contrast brain MRI, non-contrast brain MR angiogram, pre- and postcontrast neck MR angiogram INDICATIONS: syncope history of cva TECHNIQUE: Brain: Noncontrast axial T1 spin echo, axial T2 fast spin echo, sagittal and axial FLAIR, coronal T2 fast spin echo, axial gradient echo, axial diffusion and ADC through the brain. After the administration of contrast, axial 3D VIBE of the cranial vasculature and brain. Brain MRA: Non-contrast 3-D time of flight MR angiogram, with multiple ubjrdyh-vtuipjzsi-ckvlutneng (MIP) reformats performed. Neck MRA: Axial and sagittal TruFISP through the neck. Coronal dynamic MR angiogram during administration of contrast in the arterial and venous phases, with 3-dimenstional zgzqenp-gybpvxffq-hpsvuxjejx (MIP) reformats constructed from subtraction images. COMPARISON: [facility], , STROKE PROTOCOL, 08/25/2015, 14:28. FINDINGS: Image quality: Excellent. BRAIN: CSF spaces: Ventricles are normal in size and shape. Basal cisterns are patent. No extra-axial fluid collections. Brain: No intracranial bleeds or mass effects. Mclaughlin-white matter interface is normal. Diffusion weighted images show no acute infarct. Brainstem appears normal. Normal intravascular flow voids are present. No abnormal intracranial enhancement. Atrophy and multifocal/confluent white matter chronic ischemic change has increased in the interval Skull and face: Calvarial marrow signal is normal. Bilateral intraocular lens replacements noted.. Sinuses: Sphenoid mucosal thickening BRAIN MR ANGIOGRAM: Anterior circulation: Multifocal moderate stenosis involving the bilateral cavernous supraclinoid ICA is similar to the prior exam. Severe stenosis left A1 ESTEFANY without occlusion is new from the prior. Right ESTEFANY unremarkable. The flow within the middle cerebral arteries is normal and symmetric. The anterior communicating artery is seen. No stenoses, occlusions, or aneurysms. Posterior circulation: The left V4 intradural vertebral artery is occluded right vertebral artery dominant. Hypoplasia/aplasia of the right P1 [employer] noted. The P2 segment is supplied by a widely patent posterior communicating artery. Remainder of the distal vasculature shows atherosclerotic irregularity. NECK MR ANGIOGRAM: Carotids: Great vessels demonstrate a conventional anatomy as they arise from the aortic arch. The origins of the common carotid arteries appear patent. The calibers and courses of both common carotid arteries are normal. The bifurcation regions appear normal bilaterally. The internal carotid arteries demonstrate normal course and caliber. Posterior circulation: The origins of the vertebral arteries appear patent. More superior portions of both vertebral arteries demonstrate normal course and caliber, and join to form a normal appearing basilar artery. Miscellaneous: Subclavian arteries appear patent. Pre-contrast images through the neck show no soft tissue abnormalities. IMPRESSION: Atrophy and confluent white matter chronic ischemic change has progressed in the prior. No acute infarct, hemorrhage or mass lesion. High-grade focal stenosis left A1 ESTEFANY as well as left V4 VCA occlusion are both new from the prior exam. Basilar artery widely patent. Approved by: Beau Lee M.D. on 03/08/2024 at 11:32
--- NOTE | 2024-03-08 08:18 | DI.ECHO.S_ITS ---
[facility] : : [address] : : [place] : : [id number] : : Phone: [phone] Echocardiogram Report + + :Name: PEPPER IZQUIERDO Study Date: 03/08/2024 Height: 66 in : :[facility] ReadingLocation: Weight: 148 lb : : Gender: Female BSA: 1.8 m2 : :: 1935 Age: 89 yrs BP: 164/92 mmHg: :Reason For Study: SYNCOPE : :Ordering Physician: SIMONE, : :HUEY Performed By: Kaci Gunter : :Referring: HUEY NICHOLS : + + Interpretation Summary The study quality was technically difficult. The left ventricular cavity is small. The ejection fraction is estimated to be 65-70%. Diastolic function could not be accurately assessed due to tachycardia. The right ventricle is normal in size and function. There is mild tricuspid regurgitation. Pulmonary artery pressures cannot be estimated because of the lack of a measurable TR jet velocity. Procedure: A two-dimensional transthoracic echocardiogram with color flow and Doppler was performed. The study quality was technically difficult. There is no prior echocardiogram noted for this patient. The patient was in sinus tachycardia with heart rates between 103-107 bpm during the exam. Left Ventricle: The left ventricular cavity is small. There is normal left ventricular wall thickness. The ejection fraction is estimated to be 65-70%. Septal motion is consistent with conduction abnormality. Diastolic function could not be accurately assessed due to tachycardia. Right Ventricle: The right ventricle is normal in size and function. Atria: The left atrial size is normal. Right atrial size is normal. There is no Doppler evidence for an interatrial shunt. Mitral Valve: The mitral valve leaflets appear to open well. There is no mitral regurgitation noted. Aortic Valve: The aortic valve is not well visualized. There is no aortic valve stenosis. There is trace aortic regurgitation. Tricuspid Valve: The tricuspid valve leaflets are thin and pliable. There is mild tricuspid regurgitation. Pulmonary artery pressures cannot be estimated because of the lack of a measurable TR jet velocity. Pulmonic Valve: The pulmonic valve is not well visualized. Great Vessels: The aortic root is normal size. The ascending aorta could not be visualized. The aortic arch is mildly enlarged. The inferior vena cava was not visualized. Pericardium/ Pleura There is no pericardial effusion. There is no pleural effusion. MMode/2D Measurements & Calculations LVIDd: 3.0 cm LVOT diam: 2.1 cm LVIDs: 1.9 cm Ao root diam: 3.6 cm FS: 37.1 % Ao Arch Diam (Prox Trans): 3.8 cm IVSd: 0.83 cm LVPWd: 0.73 cm LV singleton. diameter/BSA (cm/m^2): 1.7 LV sys. diameter/BSA (cm/m^2): 1.1 LA A2 area: 15.2 cm2 RA long axis: 4.5 cm LA A4 area: 16.4 cm2 RA area: 16.3 cm2 LA length (vol): 5.3 cm RA vol: 50.8 ml LA vol: 39.9 ml RA : 28.9 ml/m2 LA vol index: 22.7 ml/m2 RVD1 (basal): 3.4 cm RVD2 (mid): 2.8 cm TAPSE: 1.8 cm Doppler Measurements & Calculations Ao V2 max: 143.3 cm/sec LVOT Max Case: 110.8 cm/sec Ao V2 mean: 94.8 cm/sec LV V1 max P.9 mmHg Ao max P.2 mmHg LV V1 VTI: 18.2 cm Ao mean P.0 mmHg BONG(I,D): 3.1 cm2 Ao V2 VTI: 21.1 cm BONG(V,D): 2.7 cm2 sev ratio: 0.86 BONG indexed to BSA (cm^2/m^2): 1.7 MV E max case: 58.4 cm/sec TR max case: 208.2 cm/sec MV A max case: 89.3 cm/sec TR max P.3 mmHg MV E/A: 0.65 Med Peak E' Case: 5.5 cm/sec E/E' med: 10.6 Lat Peak E' Case: 6.5 cm/sec E/E' lat: 9.0 E/e' average: 9.8 MV dec time: 0.13 sec MVA(VTI): 3.7 cm2 MV V2 mean: 69.6 cm/sec SV(LVOT): 64.6 ml MV mean P.2 mmHg MV V2 VTI: 17.5 cm Reading Physician:05:05 PM
[2024-03-08] MEDS: CARBOXYMETHYLCELLULOSE DROPS 1 DROPS EYE-BOTH (09:20)
[2024-03-08] MEDS: FLUoxetine 20 MG CAPSULE PO (09:21)
[2024-03-08] MEDS: LOSARTAN 50 MG TABLET PO (09:21)
[2024-03-08] MEDS: CLOPIDOGREL 75 MG TABLET PO (09:21)
[2024-03-08] MEDS: LORazepam 0.5 MG TABLET PO (09:54)
[2024-03-08 12:00] VITALS: BP 164/92; PULSE 110; RESP 24; TEMP 36.8; O2SAT 98
--- NOTE | 2024-03-08 12:12 | PT.IIE ---
Surgical History (Last Reviewed 03/07/24 @ 19:57 by Mar Varela MD) Anesthesia History of bilateral salpingo-oophorectomy (BSO) History of left oophorectomy History of right mastectomy (1989) Status post surgery (01/09/09) Medical History (Last Reviewed 03/07/24 @ 19:57 by Mar Varela MD) Ankle pain (2014) Anxiety (2004) Back pain Cerebrovascular accident (CVA) due to stenosis of right middle cerebral artery (04/09/16) Constipation (03/08/15) CVA (cerebral vascular accident) Depression, major Dizziness Elevated random blood glucose level Essential hypertension Essential hypertension (11/23/02) GERD (gastroesophageal reflux disease) Hearing loss (2012) History of breast cancer (1989) History of colon polyps Hyperlipidemia (10/13/03) Hyperlipidemia, unspecified Mumps (1974) Ovarian cyst (1964) Rheumatoid arthritis (2001) RLS (restless legs syndrome) (2009) Sleep apnea (1999) Physical Therapy Inpatient Evaluation/Re-Eval M1 PT/OT-IP Prior Functional Status Start: 03/08/24 11:21 Freq: NEEDED Status: Active Protocol: Document 03/08/24 11:22 MB (Rec: 03/08/24 12:12 MB [id number]) Medical Review Prior Functional Status Medical History Reviewed Yes Diet/Fluid Consistency Regular Communication WRANGE[place] and no hearing aides in the hospital and this makes communication challenging Mobility and Gait I, and denies falls. About 9 days ago, pt went down at [facility] and daughter reports EMS witnessed seizure Activities of Daily Living and IADL's I, does not drive Social History Household Members children Living Arrangements House Number of Stairs To Enter/Railing? Split level, 2-3 steps to enter without rail, two sets 5 steps with left rail descend to room Home Environment Standard Height Toilet,Walk in Shower Home Equipment Hand Held Shower Employment Status Retired M2 PT-IP Current Condition Start: 03/08/24 11:21 Freq: NEEDED Status: Active Protocol: Document 03/08/24 11:22 MB (Rec: 03/08/24 12:12 MB [id number]) Physical Therapy Current Condition Current Condition Evaluation Date 03/08/24 Treatment Diagnosis Recent seizure, hypertension, blurry vision M3 PT-IP Subjective Start: 03/08/24 11:21 Freq: NEEDED Status: Active Protocol: Document 03/08/24 11:22 MB (Rec: 03/08/24 12:12 MB [id number]) Subjective Physical Therapy Visit Type Type Initial Evaluation Visit Start Time 11:22 Visit Stop Time 11:52 Number of HYDRODYNAMICS PROFESSOR Visits 0 Physical Therapy Visit Comments Patient Comments Pt is WRANGE[place], is agreeable to PT, denies dizziness and does report some blurry vision Therapy Pain Assessment Pain When Pain Assessed At Rest Pain Present Pain Present Denied Pain M4 PT-IP Mobility and Gait Start: 03/08/24 11:21 Freq: NEEDED Status: Active Protocol: Document 03/08/24 11:22 MB (Rec: 03/08/24 12:12 MB [id number]) PT-Bed Mobility Assessment Rolling Type of Rolling Roll to Right Level of Assist Standby Assistance Supine to Sit Supine to Sit Standby Assistance Scooting Scooting to Edge of Bed Standby Assistance PT-Transfer Assessment Sit to and From Stand Sit to and from Stand Standby Assistance,1 Person Assistance,Use of Upper Extremities Equipment Transfer Assistive Device Gait Belt Orthotic/Prosthetic Devices or Brace: No Transfers Transfer Destination Chair Transfer Technique Ambulation Transfer Ability Level of Assist Standby Assistance Gait Assessment Gait Gait Assistance Required: Standby Assistance Distance (Feet) 75 Able to Maintain Weight Bearing Status Yes During Gait Assistive Devices Assistive Device Gait Belt Orthotic/Prosthetic Devices or Brace: Yes Factors Limiting Gait Function Factors Limiting Gait Function Poor Balance,Poor Safety Awareness Comments Gait Comments Pt reports some blurriness with vision with gait today and is SBA Stair Climbing Assessment Evaluation Level of Assist On Stairs Contact Guard Assistance Devices Stair Climbing Assistive Devices Left Railing Technique/Endurance Stair Climbing Direction Ascend and Descend Stair Climbing Technique Step Over Step Number of Steps Climbed 3 Query Text: Stair Climbing Set # Repetitions (reps) 1 Comments Stair Climbing Comments Left rail ascend and right rail descend PT-Balance Assessment Sitting Balance and Reactions Static Sitting Balance Ability Good Dynamic Sitting Balance Ability Good Standing Balance and Reactions Static Standing Balance Ability Good Dynamic Standing Balance Ability Good Device Used Gait belt M5 PT-IP Objective Assessments Start: 03/08/24 11:21 Freq: NEEDED Status: Active Protocol: Document 03/08/24 11:22 MB (Rec: 03/08/24 12:12 MB [id number]) Orientation Orientation/Cognition Level of Alertness Alert Orientation Name,Age,Birthday,Month,Date, Year,Day of Week,Place, Situation Language Function Ability Hard of Hearing Safety Awareness Decreased Safety Awareness Memory Description No Deficits Noted Gross Range of Motion Upper Extremity ROM Assessment Within Functional Limits Lower Extremity ROM Assessment Within Functional Limits Strength Upper Extremity Strength Assessment Right Impaired Shoulder 3+/5 right shoulder flexion and abduction Lower Extremity Strength Assessment Left Impaired Hip 3+/5 left hip flexion Coordination Assessment Gross Coordination Gross Coordination Impaired Assessment Coordination Comments Left finger to nose and heel on pop mod impaired, right finger to nose and heel on pop min impaired. Daughter reports pt has low vision on the left from macular degeneration and may affect finger to nose testing on the left which is much more impaired than the right Sensation Assessment Sensation Gross Sensation WNL Light Touch Intact Muscle Tone Muscle Tone WNL Yes M7 PT-IP Assessment and Plan Start: 03/08/24 11:21 Freq: NEEDED Status: Active Protocol: Document 03/08/24 11:22 MB (Rec: 03/08/24 12:12 MB [id number]) PT Summary Assessment and Plan Potential Rehabilitation Potential Good Status of Condition at Evaluation Evolving Summary Impairments Balance,Transfers,Gait Progress Towards Goals Progressing Toward Goals Assessment Summary Pt is an 89 y/o female presenting with hypertension today at rest, with orthostatic testing and after gait with BP and HR in right UE: supine 157/97, 104; standing 160/107, 119; standing 1' 166/98, 119 and after gait 171/94, 128. Pt reports blurry vision and no dizziness today. MMT testing reveals weak right shoulder and weak left hip and she has some coordination challenges on the left side with dysmetria left UE and left LE. Daughter reports left macular degeneration may cause more trouble with left finger to nose. Pt is severely WRANGELL and [place] is second language and with low vision, this makes pt's understanding of PT's commands challenging. She is SBA for gait today. MRI not yet available. Will keep pt on PT caseload for one more gait , stair and balance treatment if she is in the hospital. Pt may benefit from OT consult. Asked daughter to bring in hearing aides. Goals Bed Mobility Goal Independent Transfer Goal Independent Gait Goal Independent Gait Distance 100 Other Goals Pt will ascend and descend 3 steps with rail and mod I. Pt will perform WNLs on standardized balance test such as DGI or FGA to decrease fall risk. Days to Meet Goals 2 Frequency of Treatment Frequency Of Treatment Once a Day Treatment Plan Physical Therapy Treatment Plan Bed Mobility Training,Transfer Training,Gait Training, Therapeutic Exercise,Balance Retraining,Discharge Planning, Hot or Cold Pack,Neuromuscular Re-ed,Coordination Retraining ,Manual Therapy Precautions Other Precautions HTN Recommendations To Nursing Amount of Assist Needed Standby Assistance Discharge Recommendations PT Discharge Recommendations Home with 24/ Assist Available Transportation Needs at Discharge Private Vehicle
--- NOTE | 2024-03-08 13:29 | PM.DS.1 ---
History of Present Illness History of Present Illness Chief complaint: seizure x1wk, feeling like about to have another Discharge Providers Provider Date of admission: 03/07/24 19:31 Discharge Date: 03/08/24 Primary care physician: Klever Hernández MD Consults: 03/07/24 19:48 Consult to Physical Therapy Evaluate & Treat Comment: Physician Instructions: Evaluate and Treat Discharge provider: Klever Hernández MD Summary Hospital Course Discharge Diagnosis: Syncope Hyponatremia Seizure-like activity Cerebrovascular accident history Hypertension Hyperlipidemia Generalized anxiety disorder Hospital Course: Please see admission HPI for details of admission to the hospital. Patient was admitted to the hospital because of concerns about recent syncopal episode and seizure-like activity while patient was down [place] she was discharged home from the hospital has been home for 1 week and had a similar feeling or event she was brought here to our emergency department for further evaluation workup. During her hospital stay patient was on child monitor had imaging including CT scan and MRI and and laboratory testing. Patient was monitored for 24 hours. During the hospital stay patient was mentating well ambulating with assistance her daughter was with her she was tolerating her diet. Patient had a little bit of dizziness and blurriness which was not unusual for her. Patient had a CT scan of her head which showed no acute changes an MRI done which showed chronic age-related changes. During the hospital stay patient's blood pressure was moderately well controlled she is on antihypertensives and she was restarted on her home medication. During her hospital stay she was found to be hyponatremic and required normal saline to raise her sodium level to a moderate improvement. This potentially could have contributed to her underlying dizziness blurriness and symptoms. Patient will be discharged for outpatient follow-up with an echocardiogram a follow-up appointment see me next week an EEG to rule out underlying seizure disorder and a Zio patch to monitor long-term heart arrhythmias. Exam Vital Signs (past 8 hours): - 03/08/24 06:53 03/08/24 07:00 03/08/24 08:00 Temperature 98.8 F 98.5 F Pulse Rate 83 88 Respiratory Rate 18 20 Blood Pressure 150/91 H 165/91 H Pulse Oximetry 94 94 Oxygen Delivery Method Room Air Oxygen Flow Rate 0 0 03/08/24 12:00 Temperature 98.2 F Pulse Rate 110 H Respiratory Rate 24 Blood Pressure 164/92 H Pulse Oximetry 98 Oxygen Delivery Method Oxygen Flow Rate 0 Oxygen Delivery Method Room Air Oxygen Flow Rate 0 Objective Labs 03/08/24 05:40 03/08/24 05:40 Labs: Laboratory Results - last 24 hr 03/07/24 03/07/24 03/07/24 16:45 17:05 17:05 WBC 6.4 RBC 4.66 Hgb 13.4 Hct 40.7 MCV 87.2 MCH 28.7 MCHC 32.9 RDW 14.3 Plt Count 454 H Neut % (Auto) 65.3 Lymph % (Auto) 21.8 L [place] % (Auto) 10.2 Eos % (Auto) 1.6 L Baso % (Auto) 1.1 Neut # (Auto) 4200 Lymph # (Auto) 1400 [place] # (Auto) 700 Eos # (Auto) 100 Baso # (Auto) 100 PT 11.5 INR 1.0 APTT 35 Sodium 126 L Potassium 4.0 Chloride 92 L Carbon Dioxide 26 BUN 15 Creatinine 0.89 Estimated GFR > 60 BUN/Creatinine Ratio 16.9 Glucose 111 H Lactate 1.2 Calcium 9.5 Total Bilirubin 1.0 AST 29 ALT 18 Alkaline Phosphatase 95 Ammonia < 9 L Total Protein 7.4 Albumin 4.3 Globulin 3.1 Albumin/Globulin Ratio 1.4 Procalcitonin < 0.030 TSH 1.95 Urine Color Yellow Urine Appearance Clear Urine pH 6.0 Normal Ur Specific [place] 1.015 Urine Protein Negative Urine Glucose (UA) Negative Urine Ketones Negative Urine Occult Blood 2+ H Urine Nitrate Negative Urine Bilirubin Negative Urine Urobilinogen 0.2 Ur Leukocyte Esterase Negative Urine RBC 0-1/hpf Urine WBC 0-1/hpf Ur Squamous Epith Cells 0-1 /hpf Urine Bacteria Occasional (0-1) Vol Urine Centrifuged 10ml (spun) U Opiates 300ng/mL cut Negative Ur Oxycodone Screen Negative Urine Methadone Screen Negative Ur Barbiturates Screen Negative U Tricyclic Antidepress Negative Ur Phencyclidine Scrn Negative Ur Amphetamines Screen Negative U Methamphetamines Scrn Negative Ur MDMA Scrn (Ecstasy) Negative U Benzodiazepines Scrn Negative Urine Cocaine Screen Negative U Marijuana (THC) Screen Negative Urine Specific [place] Normal Ethyl Alcohol < 10 Ur Creatinine Normal 03/08/24 05:40 WBC 5.4 RBC 4.41 Hgb 12.3 Hct 38.4 MCV 87.0 MCH 28.0 MCHC 32.1 RDW 14.2 Plt Count 396 Neut % (Auto) 65.1 Lymph % (Auto) 19.5 L [place] % (Auto) 12.5 Eos % (Auto) 2.0 Baso % (Auto) 0.9 Neut # (Auto) 3500 Lymph # (Auto) 1100 [place] # (Auto) 700 Eos # (Auto) 100 Baso # (Auto) 0 PT INR APTT Sodium 130 L Potassium 4.2 Chloride 98 Carbon Dioxide 27 BUN 11 Creatinine 0.70 Estimated GFR > 60 BUN/Creatinine Ratio 15.7 Glucose 109 Lactate Calcium 9.3 Total Bilirubin 0.7 AST 25 ALT 16 Alkaline Phosphatase 88 Ammonia Total Protein 6.7 Albumin 3.8 Globulin 2.9 Albumin/Globulin Ratio 1.3 Procalcitonin TSH Urine Color Urine Appearance Urine pH Ur Specific [place] Urine Protein Urine Glucose (UA) Urine Ketones Urine Occult Blood Urine Nitrate Urine Bilirubin Urine Urobilinogen Ur Leukocyte Esterase Urine RBC Urine WBC Ur Squamous Epith Cells Urine Bacteria Vol Urine Centrifuged U Opiates 300ng/mL cut Ur Oxycodone Screen Urine Methadone Screen Ur Barbiturates Screen U Tricyclic Antidepress Ur Phencyclidine Scrn Ur Amphetamines Screen U Methamphetamines Scrn Ur MDMA Scrn (Ecstasy) U Benzodiazepines Scrn Urine Cocaine Screen U Marijuana (THC) Screen Urine Specific [place] Ethyl Alcohol Ur Creatinine PFSH Medical History Elevated random blood glucose level Ankle pain (2014) Hearing loss (2012) Mumps (1974) RLS (restless legs syndrome) (2009) Sleep apnea (1999) GERD (gastroesophageal reflux disease) Rheumatoid arthritis (2001) Ovarian cyst (1964) Dizziness Cerebrovascular accident (CVA) due to stenosis of right middle cerebral artery (04/09/16) Constipation (03/08/15) Hyperlipidemia (10/13/03) Essential hypertension (11/23/02) History of colon polyps CVA (cerebral vascular accident) Back pain Anxiety (2004) Depression, major Essential hypertension Hyperlipidemia, unspecified History of breast cancer (1989) Surgical History History of right mastectomy (1989) Anesthesia History of left oophorectomy History of bilateral salpingo-oophorectomy (BSO) Status post surgery (01/09/09) Family History Sister CVA (cerebral vascular accident) Father No problems noted. Mother Ruptured appendix Social History marital status: household members: children Smoking Status: Never smoker alcohol intake: former substance use type: does not use Discharge Plan Discharge Plan Patient Disposition: Home Provider Discharge Comment: Appointment to see Dr. Hernández next . Outpatient EEG and Zio patch we will arrange. Echocardiogram outpatient if not done in the hospital we will arrange Discharge orders & Medications Prescriptions: Continued clopidogrel 75 mg tablet 75 mg PO DAILY Qty: 90 3RF fluoxetine 20 mg capsule 20 mg PO DAILY Qty: 90 0RF Rx Instructions: once daily albuterol sulfate 90 mcg/actuation HFA aerosol inhaler 2 puff inhalation BID PRN (Reason: shortness of breath or wheezing) Qty: 6.7 2RF Rx Instructions: Two puffs up to twice daily as needed lovastatin 20 mg tablet 20 mg PO ONCE PM Qty: 90 3RF losartan 50 mg tablet 50 mg PO BID Follow up/Referrals: Klever Hernández MD [Primary Care Provider] - Visit Report/Discharge Packet Stand Alone Forms: Patient Portal/API, Stroke Signs & Symptoms Discharge Data Primary Care Provider: Klever Hernández Attending Provider: Klever Hernández Admit Date/Time: 03/07/24 19:31
--- NOTE | 2024-03-08 14:35 | CM.DANOTE ---
DCP Assessment Note Pt is an 89yo F here following some dizziness/hyponatremia. PCP Betty Payer Kulwant [facility] and self pay SPREADER BOX OPERATOR reviewed EMR. Per chart review, Betyt cleared pt to dc home with family and close OP f/u. SPREADER BOX OPERATOR alerted TCM team of pt's admission. PT=home with assist. SPREADER BOX OPERATOR entered room and introduced self and role. Pt [employer] [place], primarily met with dtr [place]. Pt lives with dtr and RAVINDRA in [place]. they assist with driving/home chores/meal prep, etc. Deny any DCP/CM needs at this time. P: dc home with family support today and close OP f/u. No identified barriers to safe dc home at this time. CM team will continue to follow as needed TIFFANIE Fletcher Discharge Planning/Care Management CM Discharge Assessment Start: 03/08/24 14:27 Freq: Status: Active Protocol: Document 03/08/24 14:27 (Rec: 03/08/24 14:35 [id number]) Discharge Planning Assessment Assigned Photolithographer TIFFANIE Vicente DPOA/Assigned Designee Name Casie iMttal Contact Information [phone] Advance Directives? No History Provided By Patient,Family Member Prior Living Arrangements House Household Members children Type of transporation used prior to Relies on Others admit Is patient alert and oriented? [employer] [place] Needs Assistance With Meal Prep,Home Chores / Shopping Barriers to Discharge No Discharge Plan Home Transportation Arrangement family in [place] Referrals Initiated None needed Review Status In Process Please Provide Date Initial DC 03/08/24 Assessment Was Performed Next Review Type Continued Stay Review
[2024-03-08 16:00] VITALS: BP 168/99; PULSE 107; RESP 24; TEMP 37.1; O2SAT 95
== END 2024-03-08 16:49 | disposition home or self-care (01) ==
LOC: ED 18:35 → AC 19:31
PROVIDERS: Admitting Provider Family Medicine; Emergency Provider Emergency Medicine; PCP Family Medicine; Referring Provider Emergency Medicine; Visit Provider Family Medicine
DX: R29.818 Other symptoms and signs involving the nervous system (principal); R42 Dizziness and giddiness; H53.8 Other visual disturbances; E87.1 Hypo-osmolality and hyponatremia; D75.839 Thrombocytosis, unspecified; N39.0 Urinary tract infection, site not specified; E78.5 Hyperlipidemia, unspecified; I10 Essential (primary) hypertension; Z86.69 Personal history of other diseases of the nervous system and sense organs; Z66 Do not resuscitate
CPT/HCPCS: 36415; 70450; 70544; 70549; 70553; 71045; 80053; 80305; 80320; 81001; 82140; 82962; 83605; 84145; 84443; 85025; 85610; 85730; 87040; 87086; 93005; 93010; 93306; 96361; 96374; 97162; 99284; G0378; A9270; A9579; J2405; J7050

== ENCOUNTER → 2024-03-22 13:44 | Outpatient (CLI) | payer OTHER, SELFPAY ==
[2024-03-07 21:05] VITALS: BMI 24.0
== END ==
PROVIDERS: PCP Family Medicine; Referring Provider Family Medicine; Visit Provider Family Medicine
DX: I49.9 Cardiac arrhythmia, unspecified (principal); R42 Dizziness and giddiness; R55 Syncope and collapse
CPT/HCPCS: 93246; 93248

== ENCOUNTER → 2024-09-08 18:57 | Outpatient (CLI) | payer OTHER, SELFPAY ==
[2024-03-07 21:05] VITALS: BMI 24.0
== END ==
LOC: LAB 18:57
PROVIDERS: PCP Family Medicine; Visit Provider Student in an Organized Health Care Education/Training Program
DX: R30.0 Dysuria (principal)
CPT/HCPCS: 87086

== ENCOUNTER → 2024-10-04 14:51 | Outpatient (CLI) | payer OTHER, SELFPAY ==
[2024-03-07 21:05] VITALS: BMI 24.0
[2024-10-04 16:04] LABS: Appearance Urine UA CLOUDY; Bilirubin Urine UA NEGATIVE (NEGATIVE); Glucose Urine UA NEGATIVE (Negative); Ketones Urine UA TRACE (NEGATIVE); Leukocyte Esterase Urine UA 1+ (NEGATIVE); Nitrite Urine UA NEGATIVE (Negative); Occult Blood Urine UA NEGATIVE (Negative); Protein Urine UA NEGATIVE (Negative); Specific Gravity Urine UA 1.020 (1.000-1.035); Urobilinogen Urine UA 1.0 E.U./dL (0.2)
[2024-10-04 16:13] LABS: Color Urine UA Dark Yellow; pH Urine UA 5.5 (4.5-8.0)
[2024-10-04 16:14] LABS: Culture Indicated Urine Specimen Cultured
== END ==
PROVIDERS: PCP Family Medicine; Referring Provider Family Medicine; Visit Provider Family Medicine
DX: R39.15 Urgency of urination (principal); R30.0 Dysuria
CPT/HCPCS: 81001; 87086

== ENCOUNTER → 2024-10-13 16:09 | Outpatient (CLI) | payer OTHER, SELFPAY ==
[2024-03-07 21:05] VITALS: BMI 24.0
[2024-10-13 17:39] LABS: Add Manual Diff / Slide Review NO; Hematocrit 37.9 % (36-46); Hemoglobin 12.4 g/dL (12.0-16.0); Lymphocytes Absolute Auto 1100 /uL (1100-4500); Mean Corpuscular HGB Conc 32.7 % (30-36); Mean Corpuscular Hemoglobin 27.9 PG (26-34); Mean Corpuscular Volume 85.5 fL (80-100); Platelet Count 490 X10^3/uL (150-400)
[2024-10-13 17:57] LABS: Alanine Aminotransferase 14 IU/L (<35); Albumin 4.4 g/dL (3.5-5.0); Albumin Globulin Ratio 1.4 (1.0-2.8); Alkaline Phosphatase 96 U/L (38-126); Blood Urea Nitrogen 13 mg/dL (7-17); Calcium 9.6 mg/dL (8.4-10.2); Carbon Dioxide 26 mmol/L (22-32); Chloride 97 mmol/L (98-107); Estimated Glomerular Filt Rate > 60 mL/min (>60); Globulin 3.1 g/dL (1.7-4.1); Glucose 110 mg/dL (70-99); HEMOLYSIS < 15 (0-50); Potassium 4.2 mmol/L (3.4-5.1); Sodium 132 mmol/L (137-145); Total Protein 7.5 g/dL (6.3-8.2)
[2024-10-13 18:32] LABS: TSH w/ Reflex to FT4 3.01 uIU/mL (0.47-4.68)
[2024-10-13 18:51] LABS: Vitamin B12 709 pg/mL (239-931)
== END ==
PROVIDERS: PCP Family Medicine; Referring Provider Physician Assistant; Visit Provider Physician Assistant
DX: E78.1 Pure hyperglyceridemia (principal); E87.1 Hypo-osmolality and hyponatremia; R42 Dizziness and giddiness; I10 Essential (primary) hypertension; E78.2 Mixed hyperlipidemia; E53.8 Deficiency of other specified B group vitamins; R73.09 Other abnormal glucose; I63.511 Cerebral infarction due to unspecified occlusion or stenosis of right middle cerebral artery
CPT/HCPCS: 36415; 80053; 82607; 84443; 85025

== ENCOUNTER 2025-01-02 11:40 | Observation (INO) | payer OTHER, SELFPAY ==
[2024-03-07 21:05] VITALS: BMI 24.0
[2025-01-02] VITALS (23 sets, daily range): BP systolic 114–181; BP diastolic 67–101; PULSE 93–135; RESP 17–42; TEMP 36.5–36.9; O2SAT 92–100; BMI 24.1
--- NOTE | 2025-01-02 12:03 | DI.RAD.S_ITS ---
PROCEDURE: XR CHEST 1V INDICATIONS: altered mental status TECHNIQUE: One view of the chest was acquired. COMPARISON: [facility], CR, XR CHEST 1V, 03/07/2024, 16:15. FINDINGS: Surgical changes and devices: None. Lungs and pleura: Lungs are clear. No pleural effusions or pneumothorax. Mediastinum: Mediastinal contours appear normal. Moderate hiatal hernia Heart size is normal. Bones and chest wall: No suspicious bony lesions. Overlying soft tissues appear unremarkable. IMPRESSION: No acute cardiopulmonary abnormality is seen. Moderate hiatal hernia Dictated by: Anish Fischer M.D. on 01/02/2025 at 11:52 Approved by: Anish Fischer M.D. on 01/02/2025 at 11:55
[2025-01-02 12:16] LABS: Add Manual Diff / Slide Review NO; Hematocrit 41.2 % (36-46); Hemoglobin 13.2 g/dL (12.0-16.0); Lymphocytes Absolute Auto 900 /uL (1100-4500); Mean Corpuscular HGB Conc 32.0 % (30-36); Mean Corpuscular Hemoglobin 26.8 PG (26-34); Mean Corpuscular Volume 83.7 fL (80-100); Platelet Count 518 X10^3/uL (150-400)
[2025-01-02 12:27] LABS: Lactate (Lactic Acid) 3.2 mmol/L (0.7-2.1)
[2025-01-02 12:28] LABS: Alanine Aminotransferase 16 IU/L (<35); Albumin 4.8 g/dL (3.5-5.0); Albumin Globulin Ratio 1.4 (1.0-2.8); Alkaline Phosphatase 110 U/L (38-126); Blood Urea Nitrogen 12 mg/dL (7-17); Calcium 9.9 mg/dL (8.4-10.2); Carbon Dioxide 22 mmol/L (22-32); Chloride 100 mmol/L (98-107); Creatine Kinase 97 U/L (30-135); Estimated Glomerular Filt Rate > 60 mL/min (>60); Ethanol (ETOH) < 10 mg/dL (<10); Globulin 3.5 g/dL (1.7-4.1); Glucose 161 mg/dL (70-99); HEMOLYSIS < 15 (0-50); Potassium 3.5 mmol/L (3.4-5.1); Sodium 134 mmol/L (137-145); Total Protein 8.3 g/dL (6.3-8.2)
--- NOTE | 2025-01-02 12:31 | EKG_ITS ---
[facility] [address] [place] [address] Test Date: 2025-01-02 Pat Name: Karlee Noguera Department: [facility] Room: Gender: Female Pbx Teacher: TED : 1935 Requested By: Order Number: [id number] Reading MD: Dayne De Jesus Measurements Intervals [place] Rate: 121 P: 99 TX: 158 QRS: 50 QRSD: 78 T: 36 QT: 312 QTc: 443 Interpretive Statements Sinus tachycardia Nonspecific ST and T wave abnormality Electronically Signed On 01-05-2025 8:03:50 PDT by Dayne De Jesus
[2025-01-02 12:40] LABS: Troponin I 0.037 ng/mL (0.01-0.034)
[2025-01-02] MEDS: SODIUM CHLORIDE 0.9% 1,000 ML 1000 ML IV ×3 (12:41→16:25)
[2025-01-02 12:45] LABS: Procalcitonin 0.033 ng/mL (<0.5)
--- NOTE | 2025-01-02 12:46 | PC.NURSE ---
Pt complaining of L sided abdominal pain with movement
[2025-01-02 12:52] LABS: Ur Creatinine Normal (Normal); Ur Specific Gravity Normal (Normal); Urine MDMA Negative (Negative); Urine Methamphetamines Negative (Negative); Urine THC Negative (Negative); Urine Tricyclic Antidepressant Negative (Negative); Urine pH Normal (Normal)
--- NOTE | 2025-01-02 12:53 | DI.CT.S_ITS ---
PROCEDURE: CT ABDOMEN PELVIS W CON INDICATIONS: abd pain hx UTI TECHNIQUE: After the administration of intravenous contrast, axial sections acquired from the lung bases to the pubic symphysis. Coronal and sagittal reformats were performed. For radiation dose reduction, the following was used: automated exposure control, adjustment of mA and/or kV according to patient size. COMPARISON: None. FINDINGS: Image quality: Significantly degraded by patient motion. Lower Chest: Large hiatal hernia ABDOMEN: Liver: No solid mass. Gallbladder: No radiopaque gallstones or wall thickening. Biliary ducts: No biliary dilation. Pancreas: No ductal dilation. Spleen: Size is within normal limits. Adrenal Glands: No adrenal nodules. Kidneys and Ureters: No hydronephrosis. Punctate left nonobstructive renal stones. Stomach and Bowel: Large hiatal hernia. No evidence of bowel obstruction. Extensive diverticular disease throughout the colon Peritoneum: No abnormal intraperitoneal fluid. No free air. Ventral Wall: No significant ventral hernia. Right fat containing inguinal hernia Abdominal Nodes: No retroperitoneal or mesenteric adenopathy by size criteria. Vessels: Aorta and inferior vena cava are normal in size. PELVIS: Pelvic Organs: Calcifications in the uterus likely represent fibroid disease. Bladder: No bladder wall thickening, accounting for underdistention. Pelvic Nodes: No enlarged lymph nodes. Miscellaneous: No inguinal hernias are seen. Bones: No aggressive osseous abnormality. Grade 1 anterolisthesis of L4 on L5. Multifocal Schmorl nodes and endplate degenerative changes the visualized thoracolumbar spine. IMPRESSION: 1. Diverticulosis without evidence of acute diverticulitis. 2. Large hiatal hernia containing a majority of the stomach. 3. Nonobstructive nephrolithiasis. 4. Fat containing right inguinal hernia. Dictated by: Anish Fischer M.D. on 01/02/2025 at 12:49 Approved by: Anish Fischer M.D. on 01/02/2025 at 12:56
[2025-01-02] MEDS: ONDANSETRON 4 MG/2 ML INJ IV ×2 (13:00→15:19)
[2025-01-02] MEDS: PIPERACILLIN/TAZO 4.5 GM in SODIUM CHLORIDE 0.9% 100 ML IV (13:00)
--- NOTE | 2025-01-02 13:05 | PC.NURSE ---
Pt to CT
[2025-01-02] MEDS: MORPHINE 4 MG/ML INJ 2 MG IV (13:38)
[2025-01-02 13:44] LABS: Reflexed Lactate in 2 Hours Y
[2025-01-02 14:11] LABS: Lactate 2HR (Lactic Acid Rflx) 1.7 mmol/L (0.7-2.1)
[2025-01-02] MEDS: MORPHINE 4 MG/ML INJ IV (15:18)
--- NOTE | 2025-01-02 15:45 | PC.NURSE ---
Pt with daughter at bedside. Pt confused but able to follow commands. Pt with equal twisting department end finder strengths, able to move all extremities, and able to smile with symmetrical rises on face. Pt states her pain has gotten better
--- NOTE | 2025-01-02 16:04 | ED_ITS ---
HPI - Altered Mental Status General Chief Complaint: Altered Mental Status Stated Complaint: Disorientation, UTI Concerns, Leg Pain Time Seen by Provider: 01/02/25 12:32 Source: family Mode of arrival: Wheelchair History of Present Illness HPI narrative: 89-year-old female with history of recurrent UTIs, hyponatremia, rheumatoid arthritis, stroke, hyperlipidemia, hypertension, back pain, depression anxiety, here with confusion developing over a few days. Daughter is concerned that she may be developing a UTI as she has had these multiple times. Patient has been complaining of abdominal pain Related Data Home Medications ?Medication ?Instructions ?Recorded ?Confirmed Womens One A Day-Multivitamins PO DAILY 01/05/2501/05 Previous Rx's ?Medication ?Instructions ?Recorded losartan 50 mg tablet 50 mg PO BID #180 tabs 07/08 estradiol 0.01% (0.1 mg/gram) 0.25 appful vaginal BEDT GA #42.5 10/13/24 vaginal cream grams aspirin 325 mg tablet 325 mg PO DAILY #90 tabs 11/22 fluoxetine 20 mg capsule 40 mg (2 x 20 mg) PO DAILY # 90 caps 01/04/25 Allergies Allergy/AdvReac Type Severity Reaction Status Date / Time No Known Drug Allergies Allergy Verified 10/13/24 15:33 Review of Systems Review of Systems Narrative: Limited Patient History Medical History Elevated random blood glucose level Ankle pain (2014) Hearing loss (2012) Mumps (1974) RLS (restless legs syndrome) (2009) Sleep apnea (1999) GERD (gastroesophageal reflux disease) Rheumatoid arthritis (2001) Ovarian cyst (1964) Dizziness Cerebrovascular accident (CVA) due to stenosis of right middle cerebral artery (04/09/16) Constipation (03/08/15) Hyperlipidemia (10/13/03) Essential hypertension (11/23/02) History of colon polyps CVA (cerebral vascular accident) Back pain Anxiety (2004) Depression, major Essential hypertension Hyperlipidemia, unspecified History of breast cancer (1989) Surgical History History of right mastectomy (1989) Anesthesia History of left oophorectomy History of bilateral salpingo-oophorectomy (BSO) Status post surgery (01/09/09) Family History Sister CVA (cerebral vascular accident) Father No problems noted. Mother Ruptured appendix Social History marital status: household members: children alcohol intake: former substance use type: does not use Smoking Status: Never smoker alcohol intake frequency: 0-2 drinks per day Exam Initial Vital Signs Initial Vital Signs: Vital Signs Temperature 98.5 F 01/02/25 11:48 Pulse Rate 135 H 01/02/25 11:48 Respiratory Rate 22 01/02/25 11:48 Blood Pressure 161/87 H 01/02/25 11:48 Pulse Oximetry 100 01/02/25 11:48 Oxygen Delivery Method Room Air 01/02/25 11:48 Const Other: 89 female resting in bed, alert, appears uncomfortable and points to mid abdomen as area of discomfort, very KEWEENAW HENT: dry mm Eyes: EOMI, PERRL Chest: CTA Abd: vague abdominal discomfort pt does not localize to a quadrant but grimmaces with palpation generally of abd Neuro: oriented to self only, moves all extremities, speech is sparse but clear, no facial droop Course Orders Ordered: Discontinued Medications Acetaminophen (Acetaminophen 325 Mg Tablet) 650 mg PO Q6H PRN PRN Reason: Fever/Mild Pain (1-3) Last Admin: 01/03/25 20:00 Dose: 650 mg Documented By: Admin: 01/03/25 13:00 Dose: 650 mg Documented By: CHRIS Al Hydrox/Mg Hydrox/Simethicone (Mag Hydrox/Alum/Simeth 30 Ml Udc) 30 ml PO Q6HR PRN PRN Reason: Dyspepsia Aspirin (Aspirin Ec 325 Mg Tablet) 325 mg PO DAILY [facility] Aspirin (Aspirin Ec 325 Mg Tablet) 325 mg PO DAILY [facility] Aspirin (Aspirin Ec 325 Mg Tablet) 325 mg PO DAILY [facility] Last Admin: 01/04/25 09:15 Dose: 325 mg Documented By: Admin: 01/03/25 08:17 Dose: 325 mg Documented By: CHRIS Calcium Carbonate (Calcium Carbonate 500 Mg Tab) 500 mg PO TID [facility] Last Admin: 01/02/25 20:42 Dose: Not Given Documented By: Admin: 01/02/25 20:34 Dose: 500 mg Documented By: AT Calcium Carbonate (Calcium Carbonate 500 Mg Tab) 500 mg PO TID PRN PRN Reason: Reflux Last Admin: 01/03/25 22:41 Dose: 500 mg Documented By: MARGA Enoxaparin Sodium (Enoxaparin 40 Mg/0.4 Ml Syringe) 40 mg SUBCUT DAILY [facility] Last Admin: 01/04/25 09:16 Dose: 40 mg Documented By: Admin: 01/03/25 08:17 Dose: 40 mg Documented By: CHRIS Fluoxetine HCl (Fluoxetine 20 Mg Capsule) 20 mg PO DAILY [facility] Fluoxetine HCl (Fluoxetine 20 Mg Capsule) 20 mg PO DAILY [facility] Fluoxetine HCl (Fluoxetine 20 Mg Capsule) 20 mg PO DAILY [facility] Last Admin: 01/03/25 08:17 Dose: 20 mg Documented By: CHRIS Fluoxetine HCl (Fluoxetine 20 Mg Capsule) 40 mg PO DAILY [facility] Last Admin: 01/04/25 09:16 Dose: 40 mg Documented By: Admin: 01/03/25 09:25 Dose: 20 mg Documented By: CHRIS Sodium Chloride (Normal Saline 0.9%) 250 mls @ 999 mls/hr IV NOW ONE Stop: 01/02/25 12:53 Sodium Chloride (Normal Saline 0.9%) 1,000 mls @ 1,000 mls/hr IV BOLUS ONE Stop: 01/02/25 13:38 Last Infusion: 01/02/25 13:44 Dose: Infused Documented By: Admin: 01/02/25 12:41 Dose: 1,000 mls/hr Documented By: MONROE Piperacillin Sod/Tazobactam (Sod 4.5 gm/ Sodium Chloride) 100 mls @ 200 mls/hr IV NOW ONE Stop: 01/02/25 12:55 Last Infusion: 01/02/25 13:44 Dose: Infused Documented By: Admin: 01/02/25 13:00 Dose: 200 mls/hr Documented By: MONROE Sodium Chloride (Normal Saline 0.9%) 1,000 mls @ 1,000 mls/hr IV BOLUS ONE Stop: 01/02/25 14:49 Last Infusion: 01/02/25 15:23 Dose: Infused Documented By: Admin: 01/02/25 13:56 Dose: 1,000 mls/hr Documented By: SGF Sodium Chloride (Normal Saline 0.9%) 1,000 mls @ 1,000 mls/hr IV BOLUS ONE Stop: 01/02/25 17:18 Last Infusion: 01/02/25 18:38 Dose: Infused Documented By: Admin: 01/02/25 16:25 Dose: 1,000 mls/hr Documented By: SGRuthie Sodium Chloride (Normal Saline 0.9%) 1,000 mls @ 100 mls/hr IV CONT GAIL Last Admin: 01/04/25 04:35 Dose: 100 mls/hr Documented By: Infusion: 01/04/25 04:13 Dose: Infused Documented By: Admin: 01/03/25 18:13 Dose: 100 mls/hr Documented By: Infusion: 01/03/25 15:28 Dose: Infused Documented By: Admin: 01/03/25 05:28 Dose: 100 mls/hr Documented By: Infusion: 01/03/25 05:28 Dose: Infused Documented By: Admin: 01/02/25 21:17 Dose: 100 mls/hr Documented By: Infusion: 01/02/25 21:17 Dose: Infused Documented By: Admin: 01/02/25 18:45 Dose: 100 mls/hr Documented By: CHRIS Losartan Potassium (Losartan 50 Mg Tablet) 50 mg PO BID [facility] Last Admin: 01/04/25 04:35 Dose: 50 mg Documented By: Admin: 01/03/25 20:01 Dose: 50 mg Documented By: Admin: 01/03/25 08:17 Dose: 50 mg Documented By: Admin: 01/02/25 20:33 Dose: 50 mg Documented By: AT Losartan Potassium (Losartan 50 Mg Tablet) 50 mg PO NOW ONE Stop: 01/04/25 08:58 Last Admin: 01/04/25 09:15 Dose: 50 mg Documented By: LDV Melatonin (Melatonin 3 Mg Tablet) 3 mg PO BEDTIME PRN PRN Reason: slee Morphine Sulfate (Morphine 4 Mg/Ml Inj) 2 mg IV NOW ONE Stop: 01/02/25 13:46 Last Admin: 01/02/25 13:38 Dose: 2 mg Documented By: SGF Morphine Sulfate (Morphine 4 Mg/Ml Inj) 4 mg IV NOW ONE Stop: 01/02/25 15:12 Last Admin: 01/02/25 15:18 Dose: 4 mg Documented By: MONROE Ondansetron HCl (Ondansetron 4 Mg/2 Ml Inj) 4 mg IV NOW ONE Stop: 01/02/25 12:54 Last Admin: 01/02/25 13:00 Dose: 4 mg Documented By: MONROE Ondansetron HCl (Ondansetron 4 Mg/2 Ml Inj) 4 mg IV NOW ONE Stop: 01/02/25 15:12 Last Admin: 01/02/25 15:19 Dose: 4 mg Documented By: MONROE Ondansetron HCl (Ondansetron 4 Mg/2 Ml Inj) 4 mg IV Q8HR PRN PRN Reason: Nausea And Vomiting Potassium Chloride (Potassium Chloride 20 Meq Tab) 40 meq PO Q6H GAIL Stop: 01/03/25 13:16 Last Admin: 01/03/25 13:10 Dose: 40 meq Documented By: Admin: 01/03/25 08:17 Dose: 40 meq Documented By: CHRIS Vital Signs Vital signs: Vital Signs - 8 hr 01/02/25 11:48 01/02/25 12:05 01/02/25 12:14 Temperature 98.5 F Pulse Rate 135 H 129 H 123 H Respiratory Rate 22 31 H 28 H Blood Pressure 161/87 H Pulse Oximetry 100 99 99 Oxygen Delivery Method Room Air 01/02/25 12:14 01/02/25 12:15 01/02/25 12:15 Temperature Pulse Rate 122 H Respiratory Rate 21 Blood Pressure 181/98 H 176/92 H Pulse Oximetry 100 Oxygen Delivery Method 01/02/25 12:30 01/02/25 12:30 01/02/25 12:44 Temperature Pulse Rate 123 H 110 H Respiratory Rate 35 H 42 H Blood Pressure 178/101 H Pulse Oximetry 100 99 Oxygen Delivery Method 01/02/25 12:45 01/02/25 12:45 01/02/25 13:12 Temperature Pulse Rate 112 H 118 H Respiratory Rate 37 H Blood Pressure 175/97 H Pulse Oximetry 99 98 Oxygen Delivery Method 01/02/25 13:15 01/02/25 13:15 01/02/25 13:30 Temperature Pulse Rate 117 H Respiratory Rate 32 H Blood Pressure 166/83 H 156/88 H Pulse Oximetry 99 Oxygen Delivery Method 01/02/25 13:30 01/02/25 14:00 01/02/25 14:00 Temperature Pulse Rate 110 H 105 H Respiratory Rate 34 H 30 H Blood Pressure 177/87 H Pulse Oximetry 100 97 Oxygen Delivery Method 01/02/25 14:30 01/02/25 14:30 01/02/25 15:00 Temperature Pulse Rate 99 H 98 H Respiratory Rate 25 H 26 H Blood Pressure 166/82 H Pulse Oximetry 98 96 Oxygen Delivery Method 01/02/25 15:01 01/02/25 15:01 01/02/25 15:30 Temperature Pulse Rate 100 H Respiratory Rate 32 H Blood Pressure 150/81 H 133/67 Pulse Oximetry 97 Oxygen Delivery Method 01/02/25 15:30 01/02/25 16:00 01/02/25 16:00 Temperature Pulse Rate 103 H 100 H Respiratory Rate 26 H 17 Blood Pressure 114/68 Pulse Oximetry 93 92 Oxygen Delivery Method 01/02/25 16:04 01/02/25 16:16 01/02/25 16:16 Temperature 98.3 F Pulse Rate 104 H Respiratory Rate 25 H Blood Pressure 122/74 Pulse Oximetry 95 Oxygen Delivery Method MDM - Altered Mental Status Lab Data 01/04/25 04:50 01/04/25 04:50 Labs: Lab Results 01/02/25 01/02/25 01/02/25 Range/Units 12:05 12:19 13:54 WBC 11.4 H (4.5-11.0) X10^3/uL RBC 4.92 (4.0-5.2) X10^6/uL Hgb 13.2 (12.0-16.0) g/dL Hct 41.2 (36-46) % MCV 83.7 (80-100) fL MCH 26.8 (26-34) PG MCHC 32.0 (30-36) % RDW 15.7 H (11.6-14.8) % Plt Count 518 H (150-400) X10^3/uL Neut % (Auto) 87.2 H (50-75) % Lymph % (Auto) 8.0 L (25-40) % [place] % (Auto) 4.1 (3-14) % Eos % (Auto) 0.0 L (2-4) % Baso % (Auto) 0.7 (0-2) % Neut # (Auto) 30411 H (8727-0700) /uL Lymph # (Auto) 900 L (9216-0046) /uL [place] # (Auto) 500 (0-900) /uL Eos # (Auto) 0 (0-450) /uL Baso # (Auto) 100 (0-100) /uL Sodium 134 L (137-145) mmol/L Potassium 3.5 (3.4-5.1) mmol/L Chloride 100 (98-107) mmol/L Carbon Dioxide 22 (22-32) mmol/L BUN 12 (7-17) mg/dL Creatinine 0.79 (0.52-1.04) mg/dL Estimated GFR > 60 (>60) mL/min BUN/Creatinine Ratio 15.2 (6-22) Glucose 161 H (70-99) mg/dL Lactate 3.2 H 1.7 (0.7-2.1) mmol/L Calcium 9.9 (8.4-10.2) mg/dL Total Bilirubin 1.1 (0.2-1.3) mg/dL AST 27 (14-36) IU/L ALT 16 (<35) IU/L Alkaline Phosphatase 110 (38-126) U/L Total Creatine Kinase 97 (30-135) U/L Troponin I 0.037 H (0.01-0.034) ng/mL Total Protein 8.3 H (6.3-8.2) g/dL Albumin 4.8 (3.5-5.0) g/dL Globulin 3.5 (1.7-4.1) g/dL Albumin/Globulin Ratio 1.4 (1.0-2.8) Procalcitonin 0.033 (<0.5) ng/mL Urine RBC 1-5/hpf (0-5/HPF) Urine WBC 0-1/hpf (0-5/HPF) Ur Squamous Epith Cells None seen (0-5/HPF) Urine Bacteria None seen (None) Urine Mucus 1+ H (Negative) Vol Urine Centrifuged 10ml (spun) U Opiates 300ng/mL cut Negative (Negative) Ur Oxycodone Screen Negative (Negative) Urine Methadone Screen Negative (Negative) Ur Barbiturates Screen Negative (Negative) U Tricyclic Antidepress Negative (Negative) Ur Phencyclidine Scrn Negative (Negative) Ur Amphetamines Screen Negative (Negative) U Methamphetamines Scrn Negative (Negative) Ur MDMA Scrn (Ecstasy) Negative (Negative) U Benzodiazepines Scrn Negative (Negative) Urine Cocaine Screen Negative (Negative) U Marijuana (THC) Screen Negative (Negative) Urine pH Normal (Normal) Urine Specific [place] Normal (Normal) Ethyl Alcohol < 10 (<10) mg/dL Ur Creatinine Normal (Normal) Chlamy pneumoniae PCR (Not Detect) Adenovirus (PCR) (Not Detect) B. pertussis DNA (PCR) (Not Detect) B.parapertussis DNA PCR (Not Detecte) Coronavirus OC43 (PCR) (Not Detect) Coronavirus HKU1 (PCR) (Not Detect) Coronavirus 229E (PCR) (Not Detect) SARS-CoV-2 (PCR) (Not Detecte) Coronavirus NL63 (PCR) (Not Detect) Human Metapneumovir PCR (Not Detect) Influenza Type A (PCR) (Not Detect) Influenza Type B (PCR) (Not Detect) M. pneumoniae (PCR) (Not Detect) Parainfluenza 1 (PCR) (Not Detect) Parainfluenza 2 (PCR) (Not Detect) Parainfluenza 3 (PCR) (Not Detect) Parainfluenza 4 (PCR) (Not Detect) RSV (PCR) (Not Detect) Entero/Rhino (PCR) (Not Detect) 01/02/25 01/02/25 Range/Units 16:17 16:19 WBC (4.5-11.0) X10^3/uL RBC (4.0-5.2) X10^6/uL Hgb (12.0-16.0) g/dL Hct (36-46) % MCV (80-100) fL MCH (26-34) PG MCHC (30-36) % RDW (11.6-14.8) % Plt Count (150-400) X10^3/uL Neut % (Auto) (50-75) % Lymph % (Auto) (25-40) % [place] % (Auto) (3-14) % Eos % (Auto) (2-4) % Baso % (Auto) (0-2) % Neut # (Auto) (5151-6075) /uL Lymph # (Auto) (4938-4658) /uL [place] # (Auto) (0-900) /uL Eos # (Auto) (0-450) /uL Baso # (Auto) (0-100) /uL Sodium (137-145) mmol/L Potassium (3.4-5.1) mmol/L Chloride (98-107) mmol/L Carbon Dioxide (22-32) mmol/L BUN (7-17) mg/dL Creatinine (0.52-1.04) mg/dL Estimated GFR (>60) mL/min BUN/Creatinine Ratio (6-22) Glucose (70-99) mg/dL Lactate (0.7-2.1) mmol/L Calcium (8.4-10.2) mg/dL Total Bilirubin (0.2-1.3) mg/dL AST (14-36) IU/L ALT (<35) IU/L Alkaline Phosphatase (38-126) U/L Total Creatine Kinase (30-135) U/L Troponin I 0.049 H (0.01-0.034) ng/mL Total Protein (6.3-8.2) g/dL Albumin (3.5-5.0) g/dL Globulin (1.7-4.1) g/dL Albumin/Globulin Ratio (1.0-2.8) Procalcitonin (<0.5) ng/mL Urine RBC (0-5/HPF) Urine WBC (0-5/HPF) Ur Squamous Epith Cells (0-5/HPF) Urine Bacteria (None) Urine Mucus (Negative) Vol Urine Centrifuged U Opiates 300ng/mL cut (Negative) Ur Oxycodone Screen (Negative) Urine Methadone Screen (Negative) Ur Barbiturates Screen (Negative) U Tricyclic Antidepress (Negative) Ur Phencyclidine Scrn (Negative) Ur Amphetamines Screen (Negative) U Methamphetamines Scrn (Negative) Ur MDMA Scrn (Ecstasy) (Negative) U Benzodiazepines Scrn (Negative) Urine Cocaine Screen (Negative) U Marijuana (THC) Screen (Negative) Urine pH (Normal) Urine Specific [place] (Normal) Ethyl Alcohol (<10) mg/dL Ur Creatinine (Normal) Chlamy pneumoniae PCR Not detected (Not Detect) Adenovirus (PCR) Not detected (Not Detect) B. pertussis DNA (PCR) Not detected (Not Detect) B.parapertussis DNA PCR Not detected (Not Detecte) Coronavirus OC43 (PCR) Not detected (Not Detect) Coronavirus HKU1 (PCR) Not detected (Not Detect) Coronavirus 229E (PCR) Not detected (Not Detect) SARS-CoV-2 (PCR) Not detected (Not Detecte) Coronavirus NL63 (PCR) Not detected (Not Detect) Human Metapneumovir PCR Not detected (Not Detect) Influenza Type A (PCR) Not detected (Not Detect) Influenza Type B (PCR) Not detected (Not Detect) M. pneumoniae (PCR) Not detected (Not Detect) Parainfluenza 1 (PCR) Not detected (Not Detect) Parainfluenza 2 (PCR) Not detected (Not Detect) Parainfluenza 3 (PCR) Not detected (Not Detect) Parainfluenza 4 (PCR) Not detected (Not Detect) RSV (PCR) Not detected (Not Detect) Entero/Rhino (PCR) Not detected (Not Detect) Urine Dip Bedside Urine Glucose Negative Bedside Urine Bilirubin - Negative Bedside Urine Ketone +/- 5 Urine Specific [place] 1.015 Bedside Urine Occult Blood + Bedside Urine pH 6.0 Bedside Urine Protein + 30 Bedside Urine Urobilinogen - Negative Bedside Urine Nitrite - Negative Bedside Urine Leukocytes - Negative Esterase MDM Narrative Medical decision making narrative: 89 yo female with hx of recurrent UTI, KE[place]EE[place]W, hyponatremia, here with her daughter with altered mental status and abdominal pain, poor appetite, weakness. Recent diarrheal illness after eating some clam chowder. Pt endorsing central abdominal discomfort. Pt very KEWEENAW and neuro assessment limited but no gross deficits. Remainder of history and exam as above. Differential diagnoses for AMS is broad and includes delirium, dehydration, electrolyte or metabolic derangement, infection, toxidrome, polypharmacy. In this patient with abdominal pain I am concerned for gastroenteritis/colitis or other acute abdomen such as SBO or consequence of infection. Will send for CT abdpelvis, treat pain with morphine/zofran, iVF as well. IMPRESSION: 1. Diverticulosis without evidence of acute diverticulitis. 2. Large hiatal hernia containing a majority of the stomach. 3. Nonobstructive nephrolithiasis. 4. Fat containing right inguinal hernia. CT head obtained and also negative for acute findings. UA negative. There is modest leukocytosis although I suspect may be hemoconcentration. Chemistries are benign. Pt observed here in the ED and continues to have vague abdominal discomfort. SHe also endorses leg pain but no deformity/wound/rash/evidence of trauma. She doesn't react with palpation across extremities. Pt will be admitted by PCP for observation. Discharge Plan Departure Patient Disposition: Admitted as Observation Clinical Impression: Acute alteration in mental status Admit Date/Time: 01/02/25 16:29 Admit Provider: Klever Hernández
--- NOTE | 2025-01-02 16:09 | EKG_ITS ---
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
--- NOTE | 2025-01-02 16:16 | DI.CT.S_ITS ---
PROCEDURE: CT HEAD/BRAIN WO CON INDICATIONS: ams TECHNIQUE: Noncontrast 4.5 mm thick angled axial sections acquired from the foramen magnum to the vertex, with coronal and sagittal reformats. For radiation dose reduction, the following was used: automated exposure control, adjustment of mA and/or kV according to patient size. COMPARISON: [facility], CT, CT HEAD/BRAIN WO CON, 03/07/2024, 18:10. FINDINGS: Image quality: Imaging is degraded by patient motion. CSF spaces: Basal cisterns are patent. No extra-axial fluid collections. Ventricles are normal in size and shape. Brain: No midline shift. No intracranial mass effect or hemorrhage. [place]- white matter interface is normal. Diffuse parenchymal volume loss with expansion CSF containing spaces. Skull and face: Calvarium and visualized facial bones are intact, without suspicious lesions. Bilateral aphakia Sinuses: Visualized sinuses and mastoids are clear. IMPRESSION: No acute intracranial pathology. Dictated by: Anish Fischer M.D. on 01/02/2025 at 16:19 Approved by: Anish Fischer M.D. on 01/02/2025 at 16:21
[2025-01-02 16:53] LABS: Troponin I 0.049 ng/mL (0.01-0.034)
--- NOTE | 2025-01-02 16:53 | P.HP_ITS ---
History of Present Illness History of Present Illness Date Patient Seen: 01/03/25 Time Patient Seen: 08:10 Chief complaint: Disorientation, UTI Concerns, Leg Pain Narrative: Patient seen and evaluated. Patient was admitted to the hospital because of weakness and confusion. Patient lives at home with her daughter patient's daughters at the bedside and helps provide the history. She is an 89-year-old female with a history of mild anxiety. Mild cognitive changes. Depression and anxiety hypertension. She has a remote history of cerebral vascular disease with TIAs. Patient and patient daughter noticed that she had increasing confusion over the last 3 days. She works. But her is at home. They have noticed it over the last month or so she has not wanted to go out as much and do shopping if concerns that maybe she has some depression. Over the last 3 days. She was eating some clam chowder. They think that she may have had food poisoning. She did have some stomach upset with some diarrhea. This was more pronounced over the weekend so she brought her into the hospital because of increasing confusion diarrhea. He is having more weakness having a difficult time getting out of bed. They were concerned that maybe she had a urinary tract infection as as well as food poisoning. He has had a previous history of these. She endorses decreased appetite. Decreased strength. No chest pain no shortness a breath no dizziness no lightheadedness. Review of laboratory testing shows normal white blood cell count. Some mild low-grade anemia. Normal electrolytes normal kidney function. Lactate is normal. Normal liver enzymes. Mild intermediate troponin. If 0.47. Protein levels are normal urine shows no signs of infection. Urine toxicology screen is negative. CT scan of abdomen and pelvis shows no acute findings and CT head shows no findings. After this the emergency room physician asked her to be admitted to the hospital for further observation because of her weakness and confusion. [facility] Medical History Elevated random blood glucose level Ankle pain (2014) Hearing loss (2012) Mumps (1974) RLS (restless legs syndrome) (2009) Sleep apnea (1999) GERD (gastroesophageal reflux disease) Rheumatoid arthritis (2001) Ovarian cyst (1964) Dizziness Cerebrovascular accident (CVA) due to stenosis of right middle cerebral artery (04/09/16) Constipation (03/08/15) Hyperlipidemia (10/13/03) Essential hypertension (11/23/02) History of colon polyps CVA (cerebral vascular accident) Back pain Anxiety (2004) Depression, major Essential hypertension Hyperlipidemia, unspecified History of breast cancer (1989) Surgical History History of right mastectomy (1989) Anesthesia History of left oophorectomy History of bilateral salpingo-oophorectomy (BSO) Status post surgery (01/09/09) Family History Sister CVA (cerebral vascular accident) Father No problems noted. Mother Ruptured appendix Social History marital status: household members: children Smoking Status: Never smoker alcohol intake: former substance use type: does not use Meds Home Medications and Allergies Home Medications ?Medication ?Instructions ?Recorded ?Confirmed ?Type losartan 50 mg tablet 50 mg PO BID #180 tabs 07/0801/02/25 Rx fluoxetine 20 mg capsule 20 mg PO DAILY #90 caps 12/2301/02/25 Rx estradiol 0.01% (0.1 mg/gram) 0.25 appful vaginal BEDT GA #42.5 10/13/24 01/02/25 Rx vaginal cream grams aspirin 325 mg tablet 325 mg PO DAILY #90 tabs 11/2201/02/25 Rx Allergies Allergy/AdvReac Type Severity Reaction Status Date / Time No Known Drug Allergies Allergy Verified 10/13/24 15:33 Exam Vital Signs (past 8 hours): - 01/02/25 11:48 01/02/25 12:05 01/02/25 12:14 Temperature 98.5 F Pulse Rate 135 H 129 H 123 H Respiratory Rate 22 31 H 28 H Blood Pressure 161/87 H Pulse Oximetry 100 99 99 Oxygen Delivery Method Room Air 01/02/25 12:14 01/02/25 12:15 01/02/25 12:15 Temperature Pulse Rate 122 H Respiratory Rate 21 Blood Pressure 181/98 H 176/92 H Pulse Oximetry 100 Oxygen Delivery Method 01/02/25 12:30 01/02/25 12:30 01/02/25 12:44 Temperature Pulse Rate 123 H 110 H Respiratory Rate 35 H 42 H Blood Pressure 178/101 H Pulse Oximetry 100 99 Oxygen Delivery Method 01/02/25 12:45 01/02/25 12:45 01/02/25 13:12 Temperature Pulse Rate 112 H 118 H Respiratory Rate 37 H Blood Pressure 175/97 H Pulse Oximetry 99 98 Oxygen Delivery Method 01/02/25 13:15 01/02/25 13:15 01/02/25 13:30 Temperature Pulse Rate 117 H Respiratory Rate 32 H Blood Pressure 166/83 H 156/88 H Pulse Oximetry 99 Oxygen Delivery Method 01/02/25 13:30 01/02/25 14:00 01/02/25 14:00 Temperature Pulse Rate 110 H 105 H Respiratory Rate 34 H 30 H Blood Pressure 177/87 H Pulse Oximetry 100 97 Oxygen Delivery Method 01/02/25 14:30 01/02/25 14:30 01/02/25 15:00 Temperature Pulse Rate 99 H 98 H Respiratory Rate 25 H 26 H Blood Pressure 166/82 H Pulse Oximetry 98 96 Oxygen Delivery Method 01/02/25 15:01 01/02/25 15:01 01/02/25 15:30 Temperature Pulse Rate 100 H Respiratory Rate 32 H Blood Pressure 150/81 H 133/67 Pulse Oximetry 97 Oxygen Delivery Method 01/02/25 15:30 01/02/25 16:00 01/02/25 16:00 Temperature Pulse Rate 103 H 100 H Respiratory Rate 26 H 17 Blood Pressure 114/68 Pulse Oximetry 93 92 Oxygen Delivery Method 01/02/25 16:04 Temperature 98.3 F Pulse Rate Respiratory Rate Blood Pressure Pulse Oximetry Oxygen Delivery Method Oxygen Delivery Method Room Air Narrative Exam Narrative: Gen.: Alert and oriented x3 no apparent distress. HEENT: NCAT PERRLA tympanic membranes are clear nares are patent oral mucosa is moist no tonsillar hypertrophy neck is supple without lymphadenopathy no thyroid enlargement. Cardio: S1-S2 regular rate and rhythm no murmurs appreciated. Respiratory: Lungs are clear to auscultation no wheezes or crackles normal respiratory effort. Abdomen: Soft nontender no rebound or guarding no liver spleen enlargement no appreciable hernias Extremities: Full range of motion no appreciable weakness no cyanosis or edema. Neurologic: Grossly intact. Objective Labs 01/03/25 05:24 01/03/25 05:24 Labs: Laboratory Results - last 24 hr 01/02/25 01/02/25 01/02/25 12:05 12:19 13:54 WBC 11.4 H RBC 4.92 Hgb 13.2 Hct 41.2 MCV 83.7 MCH 26.8 MCHC 32.0 RDW 15.7 H Plt Count 518 H Neut % (Auto) 87.2 H Lymph % (Auto) 8.0 L [facility] % (Auto) 4.1 Eos % (Auto) 0.0 L Baso % (Auto) 0.7 Neut # (Auto) 53569 H Lymph # (Auto) 900 L [facility] # (Auto) 500 Eos # (Auto) 0 Baso # (Auto) 100 Sodium 134 L Potassium 3.5 Chloride 100 Carbon Dioxide 22 BUN 12 Creatinine 0.79 Estimated GFR > 60 BUN/Creatinine Ratio 15.2 Glucose 161 H Lactate 3.2 H 1.7 Calcium 9.9 Total Bilirubin 1.1 AST 27 ALT 16 Alkaline Phosphatase 110 Total Creatine Kinase 97 Troponin I 0.037 H Total Protein 8.3 H Albumin 4.8 Globulin 3.5 Albumin/Globulin Ratio 1.4 Procalcitonin 0.033 Urine RBC 1-5/hpf Urine WBC 0-1/hpf Ur Squamous Epith Cells None seen Urine Bacteria None seen Urine Mucus 1+ H Vol Urine Centrifuged 10ml (spun) U Opiates 300ng/mL cut Negative Ur Oxycodone Screen Negative Urine Methadone Screen Negative Ur Barbiturates Screen Negative U Tricyclic Antidepress Negative Ur Phencyclidine Scrn Negative Ur Amphetamines Screen Negative U Methamphetamines Scrn Negative Ur MDMA Scrn (Ecstasy) Negative U Benzodiazepines Scrn Negative Urine Cocaine Screen Negative U Marijuana (THC) Screen Negative Urine pH Normal Urine Specific [place] Normal Ethyl Alcohol < 10 Ur Creatinine Normal Assessment & Plan Assessment and plan (1) Acute alteration in mental status: Status: Acute Plan Acute mental status changes consistent with metabolic encephalopathy. Unknown etiology at this point. Combination of potential gastroenteritis dehydration. Can not exclude cerebrovascular disease or accident. Patient will have continued workup of this. She will have an MRI today. Her CT scan was. She will be continued on her aspirin and blood pressure medication. She will receive IV hydration as she has signs of dehydration and constant treated urine and she has had increased frequency of stool consistent with probably gastroenteritis. So we will do stool sampling as well. Hopefully as we rehydrate her and further investigate the underlying causes this will resolve. Gastroenteritis. Patient's family is concerned that she had food poisoning from clamp shattered that she had for 3 days. She had increasing stool output. Decreased oral intake. Will do stool sampling today. She is getting IV fluid hydration. We will follow stool sample results and go from there. Dehydration. Patient receiving IV fluid we will continue IV fluid for the next 24 hours to help with IV hydration. Her sodium and potassium a little bit low. Kidney function is normal at this time. Depression. Patient has a history of depression and anxiety. Daughter thinks she is more depressed. Will increase her fluoxetine to 40. Hypertension. Patient will be continued on her antihypertensive medication. DVT prophylaxis with Lovenox Disposition and plan. Admission as observation and may need to change to inpatient as we further evaluate her underlying weakness and confusion. Time-Based Coding :: [TOTAL MINUTES] spent with patient and on the chart (including review of chart, obtaining history, exam, reviewing outside data, placing orders, documenting exam and treatment plan, and counseling patient) on [DATE]. PROFEE Finishing Range Operator Document charge(s): Yes
[2025-01-02 18:21] LABS: Coronavirus NL 63 Not Detected (Not Detect); SARS- CoV-2 Not Detected (Not Detecte)
[2025-01-02] MEDS: SODIUM CHLORIDE 0.9% 1,000 ML 100 ML IV ×2 (18:45→21:17)
--- NOTE | 2025-01-02 19:30 | PC.NURSE ---
Patient arrived from ED at 1820. She is very [place] but [facility]. She has a gregory in placed. MD Hernández notified for clarification of gregory, tele, diet, abx. Patient has gregory dc'd, and telemetry placed. She has IVF NS at 100 ml/hr. Plan to recheck troponin in a.m. Endorsed admission assessment to oncoming RN.
[2025-01-02] MEDS: LOSARTAN 50 MG TABLET PO (20:33)
[2025-01-02] MEDS: CALCIUM CARBONATE 500 MG TAB PO (20:34)
[2025-01-03] VITALS (8 sets, daily range): BP systolic 133–173; BP diastolic 61–94; PULSE 92–104; RESP 17–19; TEMP 36.6–36.9; O2SAT 93–96
[2025-01-03] MEDS: SODIUM CHLORIDE 0.9% 1,000 ML 100 ML IV ×2 (05:28→18:13)
[2025-01-03 05:33] LABS: Add Manual Diff / Slide Review NO; Hematocrit 30.8 % (36-46); Hemoglobin 9.9 g/dL (12.0-16.0); Lymphocytes Absolute Auto 1100 /uL (1100-4500); Mean Corpuscular HGB Conc 32.3 % (30-36); Mean Corpuscular Hemoglobin 27.3 PG (26-34); Mean Corpuscular Volume 84.7 fL (80-100); Platelet Count 315 X10^3/uL (150-400)
[2025-01-03 05:46] LABS: Alanine Aminotransferase 11 IU/L (<35); Albumin 3.3 g/dL (3.5-5.0); Albumin Globulin Ratio 1.3 (1.0-2.8); Alkaline Phosphatase 68 U/L (38-126); Blood Urea Nitrogen 8 mg/dL (7-17); Calcium 8.6 mg/dL (8.4-10.2); Carbon Dioxide 22 mmol/L (22-32); Chloride 107 mmol/L (98-107); Estimated Glomerular Filt Rate > 60 mL/min (>60); Globulin 2.6 g/dL (1.7-4.1); Glucose 87 mg/dL (70-99); HEMOLYSIS < 15 (0-50); Potassium 3.3 mmol/L (3.4-5.1); Sodium 134 mmol/L (137-145); Total Protein 5.9 g/dL (6.3-8.2)
[2025-01-03 05:58] LABS: Troponin I 0.047 ng/mL (0.01-0.034)
--- NOTE | 2025-01-03 06:27 | PC.NURSE ---
sewer hand: Patient is alert and oriented to self & year, although is forgetful about situation & place. Extremely hard of hearing, does not wear hearing aids. Vision is partially impaired d/t macular degeneration per daughter. Denies pain, nausea, dizziness. Ambulating via 1 PA & FWW. IVF infusing as ordered. Patient appears to have become less forgetful and ambulating more independently throughout the course of the night. Daughter (Daxa) at the bedside. Cont tele in place, fall precautions in place. Plan of care ongoing.
[2025-01-03] MEDS: ASPIRIN EC 325 MG TABLET PO (08:17)
[2025-01-03] MEDS: POTASSIUM CHLORIDE 20 MEQ TAB 40 MEQ PO ×2 (08:17→13:10)
[2025-01-03] MEDS: ENOXAPARIN 40 MG/0.4 ML SYRINGE SUBCUT (08:17)
[2025-01-03] MEDS: LOSARTAN 50 MG TABLET PO ×2 (08:17→20:01)
--- NOTE | 2025-01-03 10:22 | DI.MRI.S_ITS ---
PROCEDURE: MR STROKE Pre- and post-contrast brain MRI, non-contrast brain MR angiogram, pre- and postcontrast neck MR angiogram INDICATIONS: Confusion TECHNIQUE: Brain: Noncontrast axial T1 spin echo, axial T2 fast spin echo, sagittal and axial FLAIR, coronal T2 fast spin echo, axial gradient echo, axial diffusion and ADC through the brain. After the administration of contrast, axial 3D VIBE of the cranial vasculature and brain. Brain MRA: Non-contrast 3-D time of flight MR angiogram, with multiple oitljkt-suhtepwio-kvmmwkwlkj (MIP) reformats performed. Neck MRA: Axial and sagittal TruFISP through the neck. Coronal dynamic MR angiogram during administration of contrast in the arterial and venous phases, with 3- dimenstional wwhkhfs-cokbpbshp-rgbinporgg (MIP) reformats constructed from subtraction images. COMPARISON: [facility], , MR STROKE, 03/08/2024, 10:11. FINDINGS: Image quality: Excellent. BRAIN: CSF spaces: Ventricles are normal in size and shape. Basal cisterns are patent. No extra-axial fluid collections. Brain: No intracranial bleeds or mass effects. Mclaughlin-white matter interface is normal. Age-related global volume loss and chronic microvascular ischemic changes are present. Diffusion weighted images show no acute infarct. Brainstem appears normal. Normal intravascular flow voids are present. No abnormal intracranial enhancement. Skull and face: Calvarial marrow signal is normal. Bilateral lens replacements. Otherwise, the orbits are unremarkable. Sinuses: Small air-fluid levels within the sphenoid sinuses. The other paranasal sinuses and mastoid air cells are clear. BRAIN MR ANGIOGRAM: Anterior circulation: Intracranial internal carotid arteries are normal in size and enhancement. The flow within the paired anterior cerebral arteries is normal and symmetric. The flow within the middle cerebral arteries is normal and symmetric. The anterior communicating artery is seen. No stenoses, occlusions, or aneurysms. Posterior circulation: Right vertebral artery is dominant and forms the basilar artery. Left vertebral artery terminates into the PICA. origin of the right GENERATION ENGINEERING TECHNOLOGIST. The flow within the posterior cerebral arteries is normal and symmetric. No stenoses, occlusions, or aneurysms. NECK MR ANGIOGRAM: Carotids: Great vessels demonstrate a conventional anatomy as they arise from the aortic arch. The origins of the common carotid arteries appear patent. The calibers and courses of both common carotid arteries are normal. The bifurcation regions appear normal bilaterally. The internal carotid arteries demonstrate normal course and caliber. Posterior circulation: The origins of the vertebral arteries appear patent. More superior portions of both vertebral arteries demonstrate normal course and caliber, and join to form a normal appearing basilar artery. Miscellaneous: Subclavian arteries appear patent. Limited precontrast images through the neck show no significant soft tissue abnormalities. Trace pleural effusions. IMPRESSION: BRAIN MRI: No acute or subacute infarct. No acute intracranial abnormalities. Age-related global volume loss and chronic microvascular ischemic changes are present. BRAIN MR ANGIOGRAM: No significant arterial abnormalities. NECK MR ANGIOGRAM: No significant arterial abnormalities. Dictated by: Kanu Llanos M.D. on 01/03/2025 at 11:37 Approved by: Kanu Llanos M.D. on 01/03/2025 at 11:47
--- NOTE | 2025-01-03 12:58 | CM.DANOTE ---
Initial DCP Assessment Note Pt is a 89 yo female, resident of [place], admitted to the hospital because of weakness and confusion. Currently Observation. Reviewed chart, pt discussed in multidisciplinary rounds this morning. Patient lives at home with her daughter and son in law on the property and available to assist as needed. Patient has been mostly indp, needs help occasionally with higher ADLs, cooking, cleaning, chores, driving. Patient has mild cognitive changes. No barriers identified at this time to patient's safe discharge home w/family to assist; close outpatient f/u recommended. Social work team will plan to follow clinical course closely in case any DC needs or concerns arise. Patient may be a good candidate for home health. TIFFANIE Hanna Discharge Planning/Care Management CM Discharge Assessment Start: 01/02/25 18:08 Freq: Status: Active Protocol: Document 01/03/25 12:54 RICHY (Rec: 01/03/25 12:58 RICHY [id number]) Discharge Planning Assessment Assigned Discharge TIFFANIE Lau Home Energy Consultant Supervisor Provider Klever Hernández Insurance Comment [facility] DPOA/Assigned Daxa Salazar, daughter Designee Name Contact Information [phone] Advance Directives? No History Provided By Patient,Family Member Prior Living House Arrangements Household Members children Type of Relies on Others transporation used prior to admit Comment Patient lives in a mother in law suite on her children' s property. Independent with ADL Yes 's Is patient alert and Yes oriented? Needs Assistance Meal Prep,Managing Medications,Home Chores / Shopping With Discharge Plan Home Transportation family in POV Arrangement Referrals Initiated None needed Additional Comment Patient may benefit from a referral.
[2025-01-03] MEDS: ACETAMINOPHEN 325 MG TABLET 650 MG PO ×2 (13:00→20:00)
--- NOTE | 2025-01-03 16:53 | DIET.CONS ---
Dietary Consultation Note Admission Date: 01/02/2025 16:29 Assessment: 89 y F admitted for acute alteration in mental status. Dietitian consulted for family having questions. Daughter present, reporting concerns pt is not drinking enough fluids at home as this is 4th admission for dehydration. Concerns pt is drinking 4 cups coffee a day and filling up on that and not drinking other fluids. Ht: 165.1 cm Wt: 65.771 kg BMI: 24.1 UBW: pt reports 150# (68kg) -3% weight loss in >6 months, non-severe Last BM: 12/30/24 (01/02/25 18:08) MNA: 8 Marc Score: 21 Diet: 01/02/25 Breakfast General (Regular) Diet Diet Modifications: Labs: RBC 3.64 X10^6/uL (4.0-5.2) L 01/03/25 05:24 Hgb 9.9 g/dL (12.0-16.0) L 01/03/25 05:24 Hct 30.8 % (36-46) L 01/03/25 05:24 Creatinine 0.63 mg/dL (0.52-1.04) 01/03/25 05:24 Lactate 1.7 mmol/L (0.7-2.1) 01/02/25 13:54 Nutrition Diagnosis: Inadequate fluid intake r/t decreased ability to consume adequate fluid intake aeb 4th admission for dehydration per daughter Interventions: -Discussed fluids needs, foods and drinks to count towards fluids, tips for adding more, provided handout on example of fluids from drinks and foods EER: fluids: 8428-9728 mL (25 ml/kg vs Blade-segar formula) Monitoring/Evaluations: PRN Electronically Signed by: Crystal Turk 01/03/25 16:53 Clinical Dietitian [address] [id number]
[2025-01-03] MEDS: CALCIUM CARBONATE 500 MG TAB PO (22:41)
[2025-01-04 03:41] VITALS: BP 186/91; PULSE 102; RESP 18; TEMP 36.4; O2SAT 95
[2025-01-04 04:35] VITALS: BP 186/92; PULSE 102
[2025-01-04] MEDS: LOSARTAN 50 MG TABLET PO ×2 (04:35→09:15)
[2025-01-04] MEDS: SODIUM CHLORIDE 0.9% 1,000 ML 100 ML IV (04:35)
[2025-01-04 05:18] LABS: Add Manual Diff / Slide Review NO; Hematocrit 35.3 % (36-46); Hemoglobin 11.3 g/dL (12.0-16.0); Lymphocytes Absolute Auto 1300 /uL (1100-4500); Mean Corpuscular HGB Conc 32.2 % (30-36); Mean Corpuscular Hemoglobin 27.2 PG (26-34); Mean Corpuscular Volume 84.6 fL (80-100); Platelet Count 359 X10^3/uL (150-400)
[2025-01-04 05:32] LABS: Blood Urea Nitrogen 6 mg/dL (7-17); Calcium 9.6 mg/dL (8.4-10.2); Carbon Dioxide 24 mmol/L (22-32); Chloride 102 mmol/L (98-107); Estimated Glomerular Filt Rate > 60 mL/min (>60); Glucose 103 mg/dL (70-99); HEMOLYSIS < 15 (0-50); Potassium 3.9 mmol/L (3.4-5.1); Sodium 133 mmol/L (137-145)
[2025-01-04 07:00] VITALS: BP 181/88; PULSE 96; RESP 18; TEMP 36.4; O2SAT 95
--- NOTE | 2025-01-04 08:40 | P.DS_ITS ---
History of Present Illness History of Present Illness Chief complaint: Disorientation, UTI Concerns, Leg Pain Narrative: Patient seen and evaluated. Patient was admitted to the hospital because of weakness and confusion. Patient lives at home with her daughter patient's daughters at the bedside and helps provide the history. She is an 89-year-old female with a history of mild anxiety. Mild cognitive changes. Depression and anxiety hypertension. She has a remote history of cerebral vascular disease with TIAs. Patient and patient daughter noticed that she had increasing confusion over the last 3 days. She works. But her is at home. They have noticed it over the last month or so she has not wanted to go out as much and do shopping if concerns that maybe she has some depression. Over the last 3 days. She was eating some clam chowder. They think that she may have had food poisoning. She did have some stomach upset with some diarrhea. This was more pronounced over the weekend so she brought her into the hospital because of increasing confusion diarrhea. He is having more weakness having a difficult time getting out of bed. They were concerned that maybe she had a urinary tract infection as as well as food poisoning. He has had a previous history of these. She endorses decreased appetite. Decreased strength. No chest pain no shortness a breath no dizziness no lightheadedness. Review of laboratory testing shows normal white blood cell count. Some mild low-grade anemia. Normal electrolytes normal kidney function. Lactate is normal. Normal liver enzymes. Mild intermediate troponin. If 0.47. Protein levels are normal urine shows no signs of infection. Urine toxicology screen is negative. CT scan of abdomen and pelvis shows no acute findings and CT head shows no findings. After this the emergency room physician asked her to be admitted to the hospital for further observation because of her weakness and confusion. Discharge Providers Provider Date of admission: 01/02/25 16:29 Discharge Date: 01/04/25 Primary care physician: Klever Hernández MD Consults: 01/02/25 19:50 Consult to Dietitian, Adult Routine Comment: Reason For Exam: family request to speak about nutrition 01/03/25 10:08 Consult to Pharmacy Routine Comment: high fall risk Discharge provider: Klever Hernández MD Summary Hospital Course Discharge Diagnosis: Metabolic encephalopathy due to gastroenteritis Dehydration Hypertension Depression Cerebrovascular disease with history of TIA Hospital Course: Patient was in mid to the hospital with the increasing weakness and altered level of mental status. Patient family and patient live together. Patient's daughter noticed increasing confusion weakness. Concerns about food poisoning. The symptoms progressed over the 3 days she is admitted to the hospital for further workup and evaluation of her mental status changes dehydration and weakness. Patient had MRI CT scan of head abdomen and pelvis. Laboratory testing chest x-ray. Cardiac monitoring cardiac enzymes EKG etc.. During hospital stay she was provided IV fluid hydration. Monitoring of her electrolytes and further workup and evaluation. Ultimately patient's level of mental status improved back to baseline. Acute infectious etiologies were ruled out such as urinary tract infection and pneumonia. Symptoms were most likely related to dehydration and who to her gastrointestinal illness. Medications during the hospital stay were continued including her blood pressure medication medication for depression and aspirin. These medications will be continued at home. Daughter recognizes she had some increasing depression so fluoxetine dose will be changed. Her daughter will monitor her blood pressures at home and we will adjust her blood pressure medication if blood pressures continue to run high.. Exam Vital Signs (past 8 hours): - 01/04/25 03:41 01/04/25 04:35 01/04/25 07:00 Temperature 97.5 F L 97.5 F L Pulse Rate 102 H 102 H 96 H Respiratory Rate 18 18 Blood Pressure 186/91 H 186/92 H 181/88 H Pulse Oximetry 95 95 Oxygen Flow Rate 0 Oxygen Delivery Method Room Air Oxygen Flow Rate 0 Narrative Exam Narrative: Gen.: Alert and oriented x3 no apparent distress. HEENT: NCAT PERRLA tympanic membranes are clear nares are patent oral mucosa is moist no tonsillar hypertrophy neck is supple without lymphadenopathy no thyroid enlargement. Cardio: S1-S2 regular rate and rhythm no murmurs appreciated. Respiratory: Lungs are clear to auscultation no wheezes or crackles normal respiratory effort. Abdomen: Soft nontender no rebound or guarding no liver spleen enlargement no appreciable hernias Extremities: Full range of motion no appreciable weakness no cyanosis or edema. Neurologic: Grossly intact. Objective Labs 01/04/25 04:50 01/04/25 04:50 Labs: Laboratory Results - last 24 hr 01/04/25 04:50 WBC 8.3 RBC 4.17 Hgb 11.3 L Hct 35.3 L MCV 84.6 MCH 27.2 MCHC 32.2 RDW 15.5 H Plt Count 359 Neut % (Auto) 68.6 Lymph % (Auto) 15.3 L [place] % (Auto) 9.5 Eos % (Auto) 5.6 H Baso % (Auto) 1.0 Neut # (Auto) 5700 Lymph # (Auto) 1300 [place] # (Auto) 800 Eos # (Auto) 500 H Baso # (Auto) 100 Sodium 133 L Potassium 3.9 Chloride 102 Carbon Dioxide 24 BUN 6 L Creatinine 0.54 Estimated GFR > 60 BUN/Creatinine Ratio 11.1 Glucose 103 H Calcium 9.6 PFSH Medical History Elevated random blood glucose level Ankle pain (2014) Hearing loss (2012) Mumps (1974) RLS (restless legs syndrome) (2009) Sleep apnea (1999) GERD (gastroesophageal reflux disease) Rheumatoid arthritis (2001) Ovarian cyst (1964) Dizziness Cerebrovascular accident (CVA) due to stenosis of right middle cerebral artery (04/09/16) Constipation (03/08/15) Hyperlipidemia (10/13/03) Essential hypertension (11/23/02) History of colon polyps CVA (cerebral vascular accident) Back pain Anxiety (2004) Depression, major Essential hypertension Hyperlipidemia, unspecified History of breast cancer (1989) Surgical History History of right mastectomy (1989) Anesthesia History of left oophorectomy History of bilateral salpingo-oophorectomy (BSO) Status post surgery (01/09/09) Family History Sister CVA (cerebral vascular accident) Father No problems noted. Mother Ruptured appendix Social History marital status: household members: children Smoking Status: Never smoker alcohol intake: former substance use type: does not use Discharge Plan Discharge Plan Patient Disposition: Home Discharge orders & Medications Prescriptions: Continued losartan 50 mg tablet 50 mg PO BID Qty: 180 3RF aspirin 325 mg tablet 325 mg PO DAILY Qty: 90 3RF estradiol 0.01 % (0.1 mg/gram) cream 0.25 appful vaginal BEDTIME Qty: 42.5 3RF Rx Instructions: Apply to vaginal opening and external genitalia as directed nightly for 2 weeks then twice weekly thereafter Changed fluoxetine 20 mg capsule 40 mg PO DAILY Qty: 90 3RF Rx Instructions: once daily Follow up/Referrals: Klever Hernández MD [Primary Care Provider, Family Practice] Visit Report/Discharge Packet Stand Alone Forms: Patient Portal/API, Stroke Signs & Symptoms Discharge Data Primary Care Provider: Klever Hernández Attending Provider: Klever Hernández Admit Date/Time: 01/02/25 16:29 PROFEE Charge Codes Discharge inpatient/observation: [id number]
[2025-01-04] MEDS: ASPIRIN EC 325 MG TABLET PO (09:15)
[2025-01-04] MEDS: ENOXAPARIN 40 MG/0.4 ML SYRINGE SUBCUT (09:16)
--- NOTE | 2025-01-04 10:54 | PC.NURSE ---
Discharge Note Patient A&O, VSS, RA, no complaints or discomfort. Discharge packet reviewed with patient/daughter, al questions/concerns addressed. PIV/TELE discontinued. Patient able to dress self and pack all belongings with assistance of daughter. Patient taken down via wheelchair to POV.
== END 2025-01-04 10:15 | disposition home or self-care (01) ==
LOC: ED 12:32 → AC 16:29
PROVIDERS: Admitting Provider Family Medicine; Emergency Provider Student in an Organized Health Care Education/Training Program; PCP Family Medicine; Referring Provider Student in an Organized Health Care Education/Training Program; Visit Provider Family Medicine
DX: K52.9 Noninfective gastroenteritis and colitis, unspecified (principal); G93.41 Metabolic encephalopathy; R53.1 Weakness; E86.0 Dehydration; D64.9 Anemia, unspecified; R10.9 Unspecified abdominal pain; M06.9 Rheumatoid arthritis, unspecified; E78.5 Hyperlipidemia, unspecified; I10 Essential (primary) hypertension; M54.9 Dorsalgia, unspecified; F32.A Depression, unspecified; F41.9 Anxiety disorder, unspecified; Z86.73 Personal history of transient ischemic attack (TIA), and cerebral infarction without residual deficits; Z87.440 Personal history of urinary (tract) infections
CPT/HCPCS: 36415; 70450; 70544; 70549; 70553; 71045; 74177; 80048; 80053; 80305; 80320; 81003; 81015; 82550; 82962; 83605; 84145; 84484; 85025; 87040; 87633; 93005; 96361; 96365; 96372; 96375; 96376; 99223; 99238; 99284; G0378; A9579; J1650; J2272; J2405; J2543; J7030; J7050; Q9967

== ENCOUNTER → 2025-01-12 15:32 | Outpatient (CLI) | payer OTHER, SELFPAY ==
[2025-01-02 18:08] VITALS: BMI 24.1
--- NOTE | 2025-01-12 15:33 | DI.RAD.S_ITS ---
PROCEDURE: XR CERVICAL SPINE 2V OR 3V INDICATIONS: pain to neck and thoracic spine w/ tenderness TECHNIQUE: 3 view(s) of the cervical spine were acquired. COMPARISON: , CR, XR THORACIC SPINE 3V, 01/12/2025, 15:28. FINDINGS: Bones: No fractures or dislocations to the C7-T1 level. The lateral masses of C1 appear intact on the odontoid view. No suspicious bony lesions. At least moderate disc space narrowing can be seen at C5-C6 and C6-C7, with associated endplate irregularity and sclerosis. Soft tissues: No prevertebral soft tissue swelling. IMPRESSION: Plain films of the cervical spine within normal limits for age, without fractures identified. If there is point tenderness (or other clinical suspicion for a fracture not seen on these images) then a dedicated cervical spine CT would be recommended. Dictated by: Geovanni Chinchilla M.D. on 01/12/2025 at 15:06 Approved by: Geovanni Chinchilla M.D. on 01/12/2025 at 15:07
--- NOTE | 2025-01-12 15:33 | DI.RAD.S_ITS ---
PROCEDURE: XR THORACIC SPINE 3V INDICATIONS: pain to neck and thoracic spine w/ tenderness TECHNIQUE: 3 views of the thoracic spine were acquired. COMPARISON: [facility], CR, XR CERVICAL SPINE 2V OR 3V, 01/12/2025, 15:28. [facility], CR, XR CHEST 1V, 01/02/2025, 11:58. FINDINGS: Bones: Multiple levels of thoracic spine compression deformity can be seen. No ruperto acute fractures are seen. Mild dextroconvex scoliotic curvature is seen. Age-appropriate bony degenerative changes are seen. Soft tissues: The cardiac contours are within normal limits. The aorta demonstrates calcification and tortuosity. A moderate to large hiatal hernia is seen. IMPRESSION: Multiple levels of thoracic spine compression deformity can be seen. No ruperto acute features can be seen. If there is point tenderness (or other clinical suspicion for an acute fracture not seen on these images) then a dedicated CT could be considered for further evaluation, if clinically appropriate. Mild dextroconvex scoliotic curvature is seen. Moderate to large hiatal hernia noted. Dictated by: Geovanni Chinchilla M.D. on 01/12/2025 at 15:08 Approved by: Geovanni Chinchilla M.D. on 01/12/2025 at 15:09
== END ==
PROVIDERS: PCP Family Medicine; Referring Provider Physician Assistant; Visit Provider Physician Assistant
DX: M54.2 Cervicalgia (principal); M54.9 Dorsalgia, unspecified; M41.84 Other forms of scoliosis, thoracic region; K44.9 Diaphragmatic hernia without obstruction or gangrene; G95.20 Unspecified cord compression
CPT/HCPCS: 72040; 72072

== ENCOUNTER → 2025-01-17 15:40 | Outpatient (CLI) | payer OTHER, SELFPAY ==
[2025-01-02 18:08] VITALS: BMI 24.1
[2025-01-17 16:22] LABS: Add Manual Diff / Slide Review NO; Hematocrit 35.9 % (36-46); Hemoglobin 11.8 g/dL (12.0-16.0); Lymphocytes Absolute Auto 1000 /uL (1100-4500); Mean Corpuscular HGB Conc 32.8 % (30-36); Mean Corpuscular Hemoglobin 27.6 PG (26-34); Mean Corpuscular Volume 84.3 fL (80-100); Platelet Count 580 X10^3/uL (150-400)
== END ==
PROVIDERS: PCP Family Medicine; Referring Provider Physician Assistant; Visit Provider Physician Assistant
DX: D64.9 Anemia, unspecified (principal)
CPT/HCPCS: 36415; 85025